=== PATIENT | female | born 1955 | race Caucasian/White ===

== ENCOUNTER 2018-10-23 04:38 | Inpatient (IN) | payer MEDICARE ==
[2018-10-23] MEDS ORDERED: PROVENTIL 2.5 MG/3 ML NEB IH ONE ×2 (04:45→04:54)
[2018-10-23] MEDS ORDERED: LEVOFLOXACIN 750MG/150ML D5W 750 MG/150 ML BAG IV STA (04:45)
[2018-10-23] MEDS ORDERED: Sodium Chloride 0.9% 1000 ML 1,000 ML IV STA ×2 (04:45→05:09)
--- NOTE | 2018-10-23 04:45 | ERPHSYRPT ---
- History of Present Illness Time Seen by Provider: 10/23/18 04:43 Physician History: PATIENT WITH A HISTORY OF COPD, NARCOLEPSY, RESTLESS LEG SYNDROME COMPLAINS OF PRODUCTIVE COUGH, CLEAR SPUTUM, DIFFICULTY BREATHING AND EXERTIONAL DYSPNEA. DENIES FEVER, CHILLS OR CHEST PAIN. HAS NO RELIEF AFTER AEROSOL TREATMENTS. Timing/Duration: yesterday Activities at Onset: activity Severity of Dyspnea-Max: severe Severity of Dyspnea-Current: severe Possible Cause: frequent episodes Modifying Factors: Improves With: coughing, exertion Associated Symptoms: cough, wheezing Allergies/Adverse Reactions: amoxicillin [From Augmentin] Allergy (Verified 10/23/18 04:50) clavulanic acid [From Augmentin] Allergy (Verified 10/23/18 04:50) codeine [Codeine] Allergy (Verified 08/31/12 20:02) levofloxacin [From Levaquin] Allergy (Verified 10/23/18 04:50) tramadol Allergy (Verified 10/23/18 04:50) Home Medications: Aspirin EC 81 mg [Ecotrin 81 mg] 81 mg PO DAILY 08/31/12 [History] Budesonide/Formoterol Fumarate [Symbicort 160-4.5 Mcg Inhaler] 10.2 gm IH DAILY 08/31/12 [History] Combivent Inhaler PRN 08/31/12 [History] Potassium Chloride 10 Meq Tab* [Klor Con 10 MEQ] 10 meq PO DAILY 08/31/12 [ History] Torsemide 40 mg PO DAILY 08/31/12 [History] Allopurinol 100 mg [Zyloprim 100 mg] 100 mg PO DAILY 10/23/18 [History] Azithromycin 250 mg [Zithromax 250 MG TABLET] 250 mg PO DAILY 10/23/18 [ History] Prednisone 10 mg [Deltasone 10 mg] 10 mg PO DAILY 10/23/18 [History] Sertraline HCl 50 mg PO DAILY 10/23/18 [History] Hx Tetanus, Diphtheria Vaccination/Date Given: No Hx Influenza Vaccination/Date Given: Yes (2011) Hx Pneumococcal Vaccination/Date Given: No - Review of Systems Constitutional: No Fever, No Chills Eyes: No Symptoms Ears, Nose, & Throat: No Symptoms Respiratory: Cough, Dyspnea, Dyspnea on Exertion (KING), Wheezing Cardiac: No Symptoms, No Chest Pain, No Edema, No Syncope Abdominal/Gastrointestinal: No Symptoms, No Abdominal Pain, No Nausea, No Vomiting, No Diarrhea Genitourinary Symptoms: No Symptoms, No Dysuria Musculoskeletal: No Symptoms, No Back Pain, No Neck Pain Skin: No Rash Neurological: No Dizziness, No Focal Weakness, No Sensory Changes Psychological: No Symptoms Endocrine: No Symptoms All Other Systems: Reviewed and Negative - Past Medical History Pertinent Past Medical History: Yes Neurological History: No Pertinent History ENT History: No Pertinent History Cardiac History: No Pertinent History Respiratory History: COPD, Sleep Apnea, Other Endocrine Medical History: No Pertinent History Musculoskeletal History: Arthritis GI Medical History: No Pertinent History Psycho-Social History: Anxiety Female Reproductive Disorders: No Pertinent History Other Medical History: NARCOLEPSY. RESTLESS LEG SYNDROME - Past Surgical History Past Surgical History: Yes Neuro Surgical History: No Pertinent History Cardiac: Cardiac Catheterization Respiratory: No Pertinent History Gastrointestinal: Appendectomy Genitourinary: No Pertinent History Female Surgical History: Hysterectomy - Social History Smoking Status: Current every day smoker How long have you smoked: 40 YEARS Exposure to second hand smoke: Yes Drug Use: none Patient Lives Alone: No - Nursing Vital Signs Nursing Vital Signs: Initial Vital Signs Temperature 99.3 F 10/23/18 04:39 Pulse Rate 120 H 10/23/18 04:39 Respiratory Rate 30 H 10/23/18 04:39 Blood Pressure 137/83 10/23/18 04:39 O2 Sat by Pulse Oximetry 91 L 10/23/18 04:39 Pain Scale Pain Intensity 0 - Physical Exam General Appearance: moderate distress Eye Exam: PERRL/EOMI Neck Exam: normal inspection Respiratory Exam: diminished breath sounds, prolonged expirations, wheezing Cardiovascular/Chest Exam: normal heart sounds, regular rate/rhythm, normal peripheral pulses Abdominal/Gastrointestinal Exam: soft, normal bowel sounds, other (OBESE) Extremity Exam: non-tender, normal range of motion, pedal edema (1+ PRETIBIAL EDEMA) Peripheral Pulses Exam: carotid (R): 2+, carotid (L): 2+, femoral (R): 2+, femoral (L): 2+, dorsalis-pedis (R): 2+, dorsalis-pedis (L): 2+ Neurologic Exam: alert, oriented x 3 Skin Exam: normal color, dry Lymphatic Exam: adenopathy SpO2 Interpretation: borderline oxygenation SpO2: 93 Oxygen Delivery: Nasal Cannula - Course EKG Interpreted by Me: Sinus Rhythm, Sinus Tach (RATE OF 119), NORMAL AXIS - Radiology Exams Chest X-ray Interpretation: Interpreted by me, No Infiltrates (FLAT DIAPHRAMS, ) Ordered Tests: Active Orders 24 hr Category Date Time Status Bedrest with BRP/BSC TOLERATED Activity 10/23/18 06:45 Active Manager Balance STAT Care 10/23/18 04:46 Active Code Status Order ROUTINE Care 10/23/18 06:45 Active EKG-ER Only STAT Care 10/23/18 04:45 Active IV Insertion ROUTINE Care 10/23/18 06:45 Active IV Insertion STAT Care 10/23/18 04:45 Active Implement Pneumonia Pathway ROUTINE Care 10/23/18 06:[address] in Observation ROUTINE Care 10/23/18 06:45 Active Pulse Oximetry (ED) STAT Care 10/23/18 04:45 Active Vital Signs .[id number],q3omx2,q1hx2,[id number] Care 10/23/18 06:45 Active Cardiac Diet Diet 10/23/18 Breakfast Active CHEST 1 VIEW (PORTABLE) Stat Exams 10/23/18 04:46 Taken BLOOD CULTURE Stat Lab 10/23/18 04:46 Ordered CBC W DIFF Stat Lab 10/23/18 05:10 Completed CMP Stat Lab 10/23/18 05:10 Completed D-DIMER QUANTITATION Stat Lab 10/23/18 05:10 Completed Lactic Acid Stat Lab 10/23/18 05:08 Completed MAGNESIUM Stat Lab 10/23/18 05:10 Completed NT PRO BNP Stat Lab 10/23/18 05:10 Completed PROTIME WITH INR Stat Lab 10/23/18 05:10 Completed TROPONIN Q3H Lab 10/23/18 05:10 Completed TROPONIN Q3H Lab 10/23/18 08:00 Ordered TROPONIN Q3H Lab 10/23/18 11:00 Ordered TROPONIN Q3H Lab 10/23/18 14:00 Ordered TROPONIN Q3H Lab 10/23/18 17:00 Ordered BiPap/CPAP STAT RT 10/23/18 04:45 Completed BiPap/CPAP STAT RT 10/23/18 06:47 Active Respiratory Nebulizer STAT RT 10/23/18 04:47 Completed Respiratory Therapy Assessment DAILY RT 10/23/18 05:23 Active Respiratory Therapy Consult ROUTINE RT 10/23/18 06:45 Active Transfer Order Routine Transfer 10/23/18 Ordered Medication Summary Generic Name Dose Route Start Last Admin Trade Name Freq PRN Reason Stop Dose Admin Acetaminophen 650 mg 10/23/18 06:54 Tylenol 325 Mg PO 11/22/18 06:53 Q4H PRN PRN PAIN AND/OR FEVER Albuterol/Ipratropium 3 ml 10/23/18 06:47 10/23/18 07:03 Duoneb 0.5-3 Mg/3 Ml Neb IH 11/22/18 06:46 3 ml Q4HPRN PRN Administration SHORTNESS OF BREATH/WHEEZING Azithromycin 500 mg in 250 mls @ 250 mls/hr 10/23/18 06:12 10/23/18 06:39 Zithromax 500 Mg/ 250 Ml Nacl Premix IV 10/23/18 07:11 250 mls/hr STAT STA 250 mls/hr Administration Ceftriaxone Sodium/Dextrose 1 g in 50 mls @ 100 mls/hr 10/23/18 10:00 Rocephin 1 Gm-D5w 50 Ml Bag IV 11/22/18 09:59 Q24H10 FRANCISCO Azithromycin 250 mls @ 125 mls/hr 10/23/18 10:00 Zithromax 500 Mg/ 250 Ml Nacl Premix IV 11/22/18 09:59 Q24H10 FR[place]IS[place] Levalbuterol HCl 1.25 mg 10/23/18 06:48 Xopenex 1.25 Mg/0.5 Ml Ud Nebule 11/22/18 06:47 Q2HPRN PRN DIFFICULTY BREATHING Methylprednisolone Sodium Succinate 60 mg 10/23/18 07:00 Solu-Medrol 40 Mg IV 11/22/18 06:59 Q8H [place] Potassium Chloride 20 meq 10/23/18 10:00 Klor Con 10 Meq PO 11/22/18 09:59 DAILY FRANCISCO Sertraline HCl 50 mg 10/23/18 10:00 Zoloft 50 Mg Tablet PO 11/22/18 09:59 DAILY FRANCIS[place] Torsemide 40 mg 10/23/18 10:00 Demadex 20 Mg PO 11/22/18 09:59 DAILY FRANCISCO Discontinued Medications Generic Name Dose Route Start Last Admin Trade Name Freq PRN Reason Stop Dose Admin Albuterol Sulfate 2.5 mg 10/23/18 04:45 10/23/18 05:06 Proventil 2.5 Mg/3 Ml Neb IH 10/23/18 04:46 2.5 mg STAT ONE Administration Albuterol Sulfate Confirm 10/23/18 04:54 Proventil 2.5 Mg/3 Ml Neb Administered 10/23/18 04:55 Dose 2.5 mg IH .STK-MED ONE Albuterol/Ipratropium Confirm 10/23/18 04:54 Duoneb 0.5-3 Mg/3 Ml Neb Administered 10/23/18 04:55 Dose 3 ml IH .STK-MED ONE Albuterol/Ipratropium 3 ml 10/23/18 04:54 10/23/18 04:58 Duoneb 0.5-3 Mg/3 Ml Neb IH 10/23/18 04:55 3 ml STAT ONE Administration Levofloxacin/Dextrose 750 mg in 150 mls @ 100 mls/hr 10/23/18 04:45 10/23/18 05:46 Levofloxacin 750mg/150ml D5w IV 10/23/18 06:14 Not Given STAT STA Sodium Chloride 1,000 mls @ 999 mls/hr 10/23/18 04:45 10/23/18 07:02 Sodium Chloride 0.9% 1000 Ml IV 10/23/18 05:45 Infused .Q1H1M STA Infusion Sodium Chloride Confirm 10/23/18 05:06 Sodium Chloride 0.9% 1000 Ml Administered 10/23/18 05:07 Dose 1,000 mls @ ud .ROUTE .STK-MED ONE Sodium Chloride 1,000 mls @ 999 mls/hr 10/23/18 05:09 Sodium Chloride 0.9% 1000 Ml IV 10/23/18 06:09 .Q1H1M STA Ceftriaxone Sodium/Dextrose 1 g in 50 mls @ 100 mls/hr 10/23/18 06:05 07:03 Rocephin 1 Gm-D5w 50 Ml Bag IV 10/23/18 06:34 Infused STAT STA Infusion Ceftriaxone Sodium/Dextrose Confirm 10/23/18 06:19 Rocephin 1 Gm-D5w 50 Ml Bag Administered 10/23/18 06:20 Dose 1 g in 50 mls @ ud IV .STK-MED ONE Azithromycin Confirm 10/23/18 06:39 Zithromax 500 Mg/ 250 Ml Nacl Premix Administered 10/23/18 06:40 Dose 500 mg in 250 mls @ ud IV .STK-MED ONE Lab/Rad Data: Laboratory Result Diagrams 10/23/18 05:10 10/23/18 05:10 Laboratory Results 10/23/18 10/23/18 10/23/18 Range/Units 05:10 05:10 05:10 WBC (4.0-10.5) K/mm3 RBC (4.1-5.4) M/mm3 Hgb (12.0-16.0) gm/dl Hct (35-47) % MCV (78-100) fl MCH (26-32) pg MCHC (32-36) g/dl RDW (11.5-14.0) % Plt Count (150-450) K/mm3 MPV (6-9.5) fl Gran % (36.0-66.0) % Eos # (Auto) (0-0.5) Absolute Lymphs (auto) (1.0-4.6) Absolute Monos (auto) (0.0-1.3) Lymphocytes % (24.0-44.0) % Monocytes % (0.0-12.0) % Eosinophils % (0.00-5.0) % Basophils % (0.0-0.4) % Absolute Granulocytes (1.4-6.9) Basophils # (0-0.4) PT 10.9 (9.95-12.35) SECONDS INR 0.94 (0.8-3.0) D-Dimer < 215 L (215-500) ng/mL Sodium (137-145) mmol/L Potassium (3.5-5.1) mmol/L Chloride (98-107) mmol/L Carbon Dioxide (22-30) mmol/L Anion Gap (5-15) MEQ/L BUN (7-17) mg/dL Creatinine (0.52-1.04) mg/dL Estimated GFR ML/MIN Glucose (74-106) mg/dL Lactic Acid (0.4-2.0) Calcium (8.4-10.2) mg/dL Magnesium (1.6-2.3) mg/dL Total Bilirubin (0.2-1.3) mg/dL AST (14-36) U/L ALT (0-35) U/L Alkaline Phosphatase (38-126) U/L Troponin I < 0.012 (0.000-0.034) ng/mL NT-Pro-B Natriuret Pep (0-900) pg/mL Serum Total Protein (6.3-8.2) g/dL Albumin (3.5-5.0) g/dL Influenza Type A Ag NEGATIVE (NEGATIVE) Influenza Type B Ag NEGATIVE (NEGATIVE) RSV (PCR) NEGATIVE (Negative) 10/23/18 10/23/18 10/23/18 Range/Units 05:10 05:10 05:08 WBC 15.0 H (4.0-10.5) K/mm3 RBC 3.99 L (4.1-5.4) M/mm3 Hgb 14.0 (12.0-16.0) gm/dl Hct 41.5 (35-47) % MCV 104.0 H (78-100) fl MCH 35.0 H (26-32) pg MCHC 33.7 (32-36) g/dl RDW 13.2 (11.5-14.0) % Plt Count 347 (150-450) K/mm3 MPV 8.8 (6-9.5) fl Gran % 71.0 H (36.0-66.0) % Eos # (Auto) 0.16 (0-0.5) Absolute Lymphs (auto) 2.99 (1.0-4.6) Absolute Monos (auto) 1.14 (0.0-1.3) Lymphocytes % 20.0 L (24.0-44.0) % Monocytes % 7.6 (0.0-12.0) % Eosinophils % 1.1 (0.00-5.0) % Basophils % 0.3 (0.0-0.4) % Absolute Granulocytes 10.62 H (1.4-6.9) Basophils # 0.04 (0-0.4) PT (9.95-12.35) SECONDS INR (0.8-3.0) D-Dimer (215-500) ng/mL Sodium 141 (137-145) mmol/L Potassium 3.7 (3.5-5.1) mmol/L Chloride 99 (98-107) mmol/L Carbon Dioxide 35 H (22-30) mmol/L Anion Gap 10.8 (5-15) MEQ/L BUN 16 (7-17) mg/dL Creatinine 0.89 (0.52-1.04) mg/dL Estimated GFR > 60.0 ML/MIN Glucose 125 H (74-106) mg/dL Lactic Acid 1.7 (0.4-2.0) Calcium 9.2 (8.4-10.2) mg/dL Magnesium 2.1 (1.6-2.3) mg/dL Total Bilirubin 0.30 (0.2-1.3) mg/dL AST 21 (14-36) U/L ALT 22 (0-35) U/L Alkaline Phosphatase 164 H (38-126) U/L Troponin I (0.000-0.034) ng/mL NT-Pro-B Natriuret Pep 60.5 (0-900) pg/mL Serum Total Protein 7.2 (6.3-8.2) g/dL Albumin 4.3 (3.5-5.0) g/dL Influenza Type A Ag (NEGATIVE) Influenza Type B Ag (NEGATIVE) RSV (PCR) (Negative) - Progress Progress: improved Progress Note: 10/23/18 05:07 PATIENT RECEIVED SOLUMEDROL 125MG INTRAVENOUS VIA EMS ALONG WITH DUO NEB AEROSOL TREATMENT. AFTER 2 SETS OF BLOOD CULTURES ADMINISTERED ROCEPHIN 1GM, ZITHROMAX 500MG IVPB, PLACED ONTO BIPAP WITH DUO NEB AEROSOL FOLLOWED BY ALBUTEROL AEROSOL THROUGH CIRCUIT. Blood Culture(s) Obtained: Yes Antibiotics given: Yes (ROCEPHIN 1GM, ZITHROMAX 500MG IVPB) Discussed with DrWinston: Ranjit Chowdary (DISCUSSED WITH DR Wally WHITE AT 0635 FOR OBSERVATION) - Departure Time of Disposition: 07:00 Departure Disposition: Observation Clinical Impression: ACUTE EXACERBATION COPD Condition: Stable Critical Care Time: No Referrals: URSZULA BENNETT MD [Primary Care Provider] -
[2018-10-23] MEDS ORDERED: DUONEB 0.5-3 MG/3 ml Neb IH ONE ×2 (04:54)
[2018-10-23] MEDS ORDERED: Sodium Chloride 0.9% 1000 ML 1,000 ML ONE (05:06)
[2018-10-23 05:22] LABS: BASOPHIL % 0.3 % (0.0-0.4); Basophil (Absolute #) 0.04 (0-0.4); Eosinophil % 1.1 % (0.00-5.0); Eosinophil (Absolute #) 0.16 (0-0.5); Granulocyte Absolute (ANC) 10.62 (1.4-6.9); Hematocrit 41.5 % (35-47); Lymphocyte (Absolute #) 2.99 (1.0-4.6); Mean Corpuscular Hgb Concent. 33.7 g/dl (32-36); Mean Platelet Volume 8.8 fl (6-9.5); Monocyte (Absolute #) 1.14 (0.0-1.3); Monocytes % 7.6 % (0.0-12.0); Platelet Count 347 K/mm3 (150-450); Red Blood Count 3.99 M/mm3 (4.1-5.4); Red Cell Distribution Width 13.2 % (11.5-14.0)
[2018-10-23 05:45] LABS: INR 0.94 (0.8-3.0)
[2018-10-23 05:53] LABS: ALBUMIN 4.3 g/dL (3.5-5.0); ALKALINE PHOSPHATASE 164 U/L (38-126); ANION GAP 10.8 MEQ/L (5-15); BLOOD UREA NITROGEN 16 mg/dL (7-17); CHLORIDE 99 mmol/L (98-107); Calcium 9.2 mg/dL (8.4-10.2); Carbon Dioxide 35 mmol/L (22-30); Creatinine 1 0.89 mg/dL (0.52-1.04); Glucose 125 mg/dL (74-106); NT PRO BNP 60.5 pg/mL (0-900); Potassium 3.7 mmol/L (3.5-5.1); SGOT/AST 21 U/L (14-36); SGPT/ALT 22 U/L (0-35); SODIUM 141 mmol/L (137-145); Total Protein 7.2 g/dL (6.3-8.2)
[2018-10-23 05:57] LABS: INFLUENZA A NEGATIVE (NEGATIVE); INFLUENZA B NEGATIVE (NEGATIVE); RESPIRATORY SYNCTIAL VIRUS NEGATIVE (Negative)
[2018-10-23] MEDS ORDERED: ROCEPHIN 1 Gm-D5w 50 ml Bag** 1 G/50 ML IVPB IV STA (06:05)
[2018-10-23 06:06] LABS: D-DIMER QUANTITATION < 215 ng/mL (215-500)
[2018-10-23] MEDS ORDERED: Zithromax 500 MG/ 250 ML NaCl Premix 500 MG/250 ML IVPB IV STA (06:12)
[2018-10-23] MEDS ORDERED: ROCEPHIN 1 Gm-D5w 50 ml Bag** 1 G/50 ML IVPB IV ONE (06:19)
[2018-10-23] MEDS ORDERED: Zithromax 500 MG/ 250 ML NaCl Premix 500 MG/250 ML IVPB IV ONE (06:39)
[2018-10-23] MEDS ORDERED: DUONEB 0.5-3 MG/3 ml Neb IH PRN (06:47)
[2018-10-23] MEDS ORDERED: Xopenex 1.25 MG/0.5 ML UD NEBULE IH PRN (06:48)
[2018-10-23] MEDS ORDERED: TYLENOL 325 MG PO PRN (06:54)
--- NOTE | 2018-10-23 09:39 | XRAY ---
Indication: Cough and dyspnea. Comparison: May 16, 2015. Portable chest remains hyperinflated. No focal infiltrate, consolidation, or large effusion. Heart is not enlarged. Bony thorax intact. Impression: Nonacute hyperinflated chest.
[2018-10-23] MEDS ORDERED: DEMADEX 20 MG PO SCH (10:00)
[2018-10-23] MEDS ORDERED: Klor Con 10 MEQ PO SCH (10:00)
[2018-10-23] MEDS: solu-MEDROL 125 MG IV SCH ×3 (10:08→21:01)
[2018-10-23] MEDS: Sodium Chloride 0.9% 1000 ML 1,000 ML IV SCH (10:08)
[2018-10-23] MEDS: ZOLOFT 50 MG TABLET PO SCH (10:09)
[2018-10-23] MEDS: DUONEB 0.5-3 MG/3 ml Neb IH SCH ×4 (11:41→23:43)
[2018-10-23] MEDS: ENOXAPARIN SODIUM SQ SCH (12:55)
[2018-10-23] MEDS: MAG-OX 400 PO SCH (12:56)
[2018-10-23] MEDS: ZYLOPRIM 100 MG PO SCH (12:57)
[2018-10-23 13:48] LABS: A-aADO2 125; ABG HEMOGLOBIN 14.3; ABG POTASSIUM 4.1 (3.5-5.1); ARTERIAL BLD GAS O2 SATURATION 97.4 % (95-100); ARTERIAL BLOOD GAS BASE EXCESS 4.2 (-2.0-2.0); ARTERIAL BLOOD GAS FIO2 40 %; ARTERIAL BLOOD GAS PCO2 57 mmHg (35-45); ARTERIAL BLOOD GAS PO2 89 mmHg (75-100); ARTERIAL BLOOD GAS VENT MODE BiPAP; ARTERIAL BLOOD GAS pH 7.35 (7.35-7.45); CARBOXYHEMOGLOBIN 1.2 % THgb (0.0-6.9); HCO3- 31.5 (22-28); HGB O2 SAT 95.8 g/dF (94-100); Methhemoglobin 0.4 % (1.4-1.5); paO2 pAO1 0.42
[2018-10-23 13:49] LABS: ABG SITE RIGHT BRACHIAL
[2018-10-23] MEDS: CLINDAMYCIN-D5W 600 MG/50 ML*** 600 MG/50 ML BAG IV SCH ×2 (14:07→21:02)
[2018-10-23] MEDS: PROTONIX 40 MG IV IV SCH (14:08)
[2018-10-24] MEDS ORDERED: PHARMACY DOSING REQUIRED: VANCOMYCIN IV ONE (03:23)
[2018-10-24] MEDS: DUONEB 0.5-3 MG/3 ml Neb IH SCH ×6 (03:44→23:01)
[2018-10-24] MEDS ORDERED: Vancomycin 1GM/ Ns 250ML*** 2 GM/500 ML IVPB IV ONE (04:00)
[2018-10-24] MEDS: CLINDAMYCIN-D5W 600 MG/50 ML*** 600 MG/50 ML BAG IV SCH ×3 (05:35→21:44)
[2018-10-24] MEDS: solu-MEDROL 125 MG IV SCH (05:55)
[2018-10-24 06:07] LABS: Hematocrit 37.4 % (35-47); Hemoglobin 12.6 gm/dl (12.0-16.0); Mean Cell Volume 103.3 fl (78-100); Mean Corpuscular Hemoglobin 34.8 pg (26-32); Mean Corpuscular Hgb Concent. 33.7 g/dl (32-36); Platelet Count 347 K/mm3 (150-450); Red Blood Count 3.62 M/mm3 (4.1-5.4); Red Cell Distribution Width 12.8 % (11.5-14.0); White Blood Count 17.9 K/mm3 (4.0-10.5)
[2018-10-24 06:21] LABS: ANION GAP 10.4 MEQ/L (5-15); BLOOD UREA NITROGEN 20 mg/dL (7-17); CHLORIDE 100 mmol/L (98-107); Calcium 8.7 mg/dL (8.4-10.2); Carbon Dioxide 34 mmol/L (22-30); Creatinine 1 0.91 mg/dL (0.52-1.04); Glucose 129 mg/dL (74-106); Potassium 4.1 mmol/L (3.5-5.1); SODIUM 141 mmol/L (137-145)
[2018-10-24] MEDS: Advair Hfa 230/21 Mcg COMMON CANISTER IH SCH ×3 (06:45→18:48)
[2018-10-24] MEDS: PROTONIX 40 MG IV IV SCH (07:57)
[2018-10-24] MEDS: ZOLOFT 50 MG TABLET PO SCH (07:57)
[2018-10-24] MEDS: ENOXAPARIN SODIUM SQ SCH (07:57)
[2018-10-24] MEDS: xanAX 0.25 MG PO PRN ×4 (07:57→21:44)
[2018-10-24] MEDS: MAG-OX 400 PO SCH (07:57)
[2018-10-24] MEDS: DEMADEX 20 MG PO SCH (07:58)
[2018-10-24] MEDS: ZYLOPRIM 100 MG PO SCH (08:01)
[2018-10-24] MEDS: Klor Con 10 MEQ PO SCH (09:11)
[2018-10-24] MEDS ORDERED: Zithromax 500 MG/ 250 ML NaCl Premix 500 MG/250 ML IVPB IV SCH (10:00)
[2018-10-24] MEDS ORDERED: ROCEPHIN 1 Gm-D5w 50 ml Bag** 1 G/50 ML IVPB IV SCH (10:00)
[2018-10-24] MEDS: Sodium Chloride 0.9% 1000 ML 1,000 ML IV SCH (10:59)
[2018-10-24] MEDS: solu-MEDROL 40 MG IV SCH ×2 (13:29→21:44)
[2018-10-24] MEDS: Spiriva 18 Mcg/Cap Inhaler IH SCH (18:50)
[2018-10-24] MEDS: VANCOCIN 1 GM VIAL*** 0.75 GM in Sodium Chloride 0.9% 150 ML 150 ML IV SCH (21:44)
[2018-10-25] MEDS: DUONEB 0.5-3 MG/3 ml Neb IH SCH ×6 (02:58→22:48)
[2018-10-25] MEDS: CLINDAMYCIN-D5W 600 MG/50 ML*** 600 MG/50 ML BAG IV SCH ×3 (05:07→21:24)
[2018-10-25] MEDS: solu-MEDROL 40 MG IV SCH ×3 (05:07→21:28)
[2018-10-25 05:56] LABS: Basophil (Absolute #) 0.01 (0-0.4); Eosinophil (Absolute #) 0.01 (0-0.5); Granulocyte Absolute (ANC) 20.08 (1.4-6.9); Granulocytes % 90.3 % (36.0-66.0); Hematocrit 39.4 % (35-47); Hemoglobin 12.7 gm/dl (12.0-16.0); Lymphocytes % 5.8 % (24.0-44.0); Mean Cell Volume 105.3 fl (78-100); Mean Corpuscular Hemoglobin 33.9 pg (26-32); Mean Corpuscular Hgb Concent. 32.2 g/dl (32-36); Mean Platelet Volume 8.8 fl (6-9.5); Monocyte (Absolute #) 0.87 (0.0-1.3); Monocytes % 3.9 % (0.0-12.0); Platelet Count 332 K/mm3 (150-450); Red Blood Count 3.74 M/mm3 (4.1-5.4); White Blood Count 22.3 K/mm3 (4.0-10.5)
[2018-10-25 06:16] LABS: ALBUMIN 3.7 g/dL (3.5-5.0); ALKALINE PHOSPHATASE 96 U/L (38-126); ANION GAP 9.3 MEQ/L (5-15); BLOOD UREA NITROGEN 31 mg/dL (7-17); CHLORIDE 100 mmol/L (98-107); Calcium 9.2 mg/dL (8.4-10.2); Carbon Dioxide 34 mmol/L (22-30); Creatinine 1 0.92 mg/dL (0.52-1.04); Glucose 128 mg/dL (74-106); Potassium 4.2 mmol/L (3.5-5.1); SGOT/AST 22 U/L (14-36); SGPT/ALT 21 U/L (0-35); SODIUM 139 mmol/L (137-145); Total Protein 6.2 g/dL (6.3-8.2)
[2018-10-25] MEDS: Advair Hfa 230/21 Mcg COMMON CANISTER IH SCH ×3 (06:49→19:08)
[2018-10-25] MEDS: xanAX 0.25 MG PO PRN (07:51)
[2018-10-25 07:59] LABS: Slide Review 1 YES
[2018-10-25] MEDS: Klor Con 10 MEQ PO SCH (10:00)
[2018-10-25] MEDS: PROTONIX 40 MG IV IV SCH (10:00)
[2018-10-25] MEDS: MAG-OX 400 PO SCH (10:00)
[2018-10-25] MEDS: ENOXAPARIN SODIUM SQ SCH (10:00)
[2018-10-25] MEDS: ZOLOFT 50 MG TABLET PO SCH (10:00)
[2018-10-25] MEDS: VANCOCIN 1 GM VIAL*** 0.75 GM in Sodium Chloride 0.9% 150 ML 150 ML IV SCH ×2 (10:01→22:14)
[2018-10-25] MEDS: DEMADEX 20 MG PO SCH (10:01)
[2018-10-25] MEDS: ZYLOPRIM 100 MG PO SCH (10:01)
--- NOTE | 2018-10-25 11:23 | HP ---
HISTORY OF PRESENT ILLNESS: Maria Luz Gregory is a 63 year old woman with past medical history of hypertension, congestive heart failure, chronic obstructive pulmonary disease, chronic respiratory failure, sleep apnea, narcolepsy, anxiety and restless leg syndrome. She was admitted through the emergency room this morning with increasing shortness of breath, productive cough for the past two to three days. The patient did not have any relief after using her nebulizations at home. She had also noticed some wheezing at home. Upon initial evaluation in the emergency room she was noted to have blood pressure 107/83, heart rate 120, respiratory rate 30 and temperature 99.3F. Oxygen saturations of 91%. After initial evaluation she was treated with Albuterol nebulization, Tylenol 650 mg, Zithromax 500 mg, Rocephin 1 gm, Xopenex nebulization, Solu-Medrol 60 mg, potassium 20 mEq , Zoloft 50 mg, Torsemide 40 mg and was placed on BiPAP. Subsequently she was admitted to ICU for further monitoring and management. At the time of this evaluation she remains on BiPAP. States her shortness of breath is somewhat better. Complains of wheezing. Complains of chest tightness. Complains of productive cough. Complains of fatigue. The patient said she had similar symptoms four days back. PAST MEDICAL HISTORY: As noted above. PAST SURGICAL HISTORY: Cardiac catheterization. Appendectomy. Hysterectomy. ALLERGIES: AMOXICILLIN, CLAVULANIC ACID, CODEINE, LEVOFLOXACIN, TRAMADOL. MEDICATIONS: Home medications were reviewed. FAMILY HISTORY: Noncontributory. SOCIAL HISTORY: The patient is an active smoker. She lives at home. REVIEW OF SYSTEMS: Denies headache or dizziness Complains of fatigue. Denies fever. Complains of chest congestion, chest tightness. Denies chest pain as such. Complains of shortness of breath. Complains of productive cough. Denies palpitations. Denies abdominal pain, nausea or vomiting. Denies constipation or diarrhea. Denies urinary complaints. PHYSICAL EXAMINATION: A middle-aged obese woman lying in bed, remains on BiPAP. VITAL SIGNS: Blood pressure 126/67, heart rate 70, respiratory rate 24, temperature 97.6F. Oxygen saturation 99% on current settings with BiPAP. HEENT: No pallor or icterus is noted. NECK: No JVD is present. CVS: S1, S2 present. RESPIRATORY: Breath sounds are bilaterally diminished. Scattered wheezing present. ABDOMEN: Obese, soft, nontender. NEURO: She is alert, oriented x3. EXTREMITIES: No edema on bilateral lower extremities. LABORATORY DATA AND TESTS: Labs from today show CBC with white blood cell of 15 otherwise unremarkable. D-dimer is less than 215. Lactic acid 1.7. CMP notable for glucose 125, troponin is less than 0.012 x3. NT BNP 60.5. Flu A/B and respiratory syncytial virus are negative. Blood cultures are pending. Chest x-ray from today showed nonacute hyperinflated chest. EKG showed sinus tachycardia at 119 beats/minute, normal axis per emergency room records. ASSESSMENT: A 63 year old woman with impression: 1) Chronic obstructive pulmonary disease with exacerbation. 2) Acute on chronic respiratory failure. 3) Acute bronchopneumonia. 4) History of hypertension/congestive heart failure. 5) History of narcolepsy. 6) Anxiety. 7) Nicotine addiction. 8) Obesity. PLAN: The patient is admitted for further monitoring and management. Continue supplemental oxygen nebulizations, BiPAP as tolerated. Continue broad spectrum IV antibiotics. However in view of the patient's allergies, we changed to IV Clindamycin. Will get baseline ABG. Likely need for transfer to allow pulmonary evaluation was discussed with patient. Continue other current home medications. Continue IV steroids. The patient's clinical condition, available work up results and plan of management was discussed with her. She seems to be in understanding and agreement. The plan was discussed with charge nurse, Betina.
--- NOTE | 2018-10-25 11:37 | PROG NOTE ---
DATE: 10/24/2018 Chart is reviewed and events noted. The patient had an episode of severe anxiety earlier this morning when attempt was made to change her to nasal cannula. She treated with her home medication of Xanax which helped her well per nursing. At the time of this evaluation the patient is on nasal cannula, states the shortness of breath is much better. Still having persistent cough. However is unable to bring up any phlegm. Wanting regular diet. Denies any other complaints. Appears comfortable. PHYSICAL EXAMINATION: VITAL SIGNS: Blood pressure 138/78, heart rate 92, respiratory rate 22, temperature 97.8F. Oxygen saturation 96% on 2 liters. HEENT: Normocephalic. No pallor or icterus is noted. NECK: No JVD is present. CVS: S1, S2 present. RESPIRATORY: Breath sounds are bilaterally diminished. ABDOMEN: Obese, soft, nontender. NEURO: She is alert and oriented x3. EXTREMITIES: No edema on bilateral lower extremities. LABORATORY DATA AND TESTS: Labs from today show CBC with white blood cell 17.9, hemoglobin 12.6, hematocrit 37.4, PLT 347,000. BMP showed bicarbonate 34, BUN 20, creatinine 0.91, glucose 129, magnesium 2.2. Blood cultures show gram positive cocci on preliminary exam report called to me by nursing. Medications were reviewed. ASSESSMENT: A 63 year old woman with impression: 1) Chronic obstructive pulmonary disease with exacerbation. 2) Acute bronchopneumonia. 3) Questionable gram positive bacteremia. 4) History of hypertension/congestive heart failure. 5) Chronic respiratory failure. 6) Anxiety. 7) Obesity. PLAN: Continue supplemental oxygen/BiPAP. Taper steroids as tolerated. Continue broad spectrum IV antibiotics. In view of preliminary positive blood cultures Vancomycin was added, continue to follow cultures. Change to regular diet. Likely transfer out of ICU later today or tomorrow. The plan was discussed with patient. She seems to be in understanding and agreement. Discussed with patient's nurse, Evon.
--- NOTE | 2018-10-25 12:17 | PCM.HP ---
History of Present Illness - Chief Complaint Chief Complaint: shortness of breath and cough for 3-4 days History of Present Illness: is a 63 year old female came to ER with c/o shortness of breath for 3-4 days. patient has failed outpatient treatment - Review of Systems Constitutional: No Fever, No Chills Eyes: No Symptoms Ears, Nose, & Throat: No Symptoms Respiratory: Cough, Orthopnea, No Short Of Breath Cardiac: No Chest Pain, No Edema, No Syncope Abdominal/Gastrointestinal: No Abdominal Pain, No Nausea, No Vomiting, No Diarrhea Genitourinary Symptoms: No Dysuria Musculoskeletal: No Back Pain, No Neck Pain Skin: No Rash Neurological: No Dizziness, No Focal Weakness, No Sensory Changes Psychological: No Symptoms Endocrine: No Symptoms Hematologic/Lymphatic: No Symptoms Immunological/Allergic: No Symptoms Medications & Allergies Home Medications: Home Medication List Aspirin EC 81 mg [Ecotrin 81 mg] 81 mg PO 3XW 08/31/12 [History Confirmed 10/23/18] Budesonide/Formoterol Fumarate [Symbicort 160-4.5 Mcg Inhaler] 10.2 gm IH DAILY 08/31/12 [History Confirmed 10/23/18] Combivent Inhaler 2 puff PO Q4HPRN PRN 08/31/12 [History Confirmed 10/23/18] Potassium Chloride 10 Meq Tab* [Klor Con 10 MEQ] 10 meq PO DAILY 08/31/12 [ History Confirmed 10/23/18] Torsemide 20 mg PO DAILY 08/31/12 [History Confirmed 10/23/18] Allopurinol 100 mg [Zyloprim 100 mg] 100 mg PO DAILY 10/23/18 [History Confirmed 10/23/18] Magnesium Oxide [Magnesium] 400 mg PO DAILY 10/23/18 [History Confirmed 10/23/18 ] Prednisone 10 mg [Deltasone 10 mg] 10 mg PO DAILY 10/23/18 [History Confirmed 10/23/18] Sertraline HCl 50 mg PO DAILY 10/23/18 [History Confirmed 10/23/18] Allergies/Adverse Reactions: Allergies Allergy/AdvReac Type Severity Reaction Status Date / Time clavulanic acid Allergy Verified 10/23/18 04:50 [From Augmentin] codeine [Codeine] Allergy Verified 08/31/12 20:02 levofloxacin [From Levaquin] Allergy Verified 10/23/18 04:50 tramadol Allergy Verified 10/23/18 04:50 - Past Medical History Past Medical History: Yes Neurological History: No Pertinent History ENT History: No Pertinent History Cardiac History: No Pertinent History Respiratory History: COPD, Sleep Apnea, Other Endocrine Medical History: No Pertinent History Musculoskelatal History: Arthritis GI Medical History: No Pertinent History Pyscho-Social History: Anxiety Reproductive Disorders: No Pertinent History Comment: NARCOLEPSY. RESTLESS LEG SYNDROME - Female History Are you now?: No - Past Surgical History Past Surgical History: Yes Neuro Surgical History: No Pertinent History Cardiac History: Cardiac Catheterization Respiratory Surgery: No Pertinent History GI Surgical History: Appendectomy Genitourinary Surgical Hx: No Pertinent History Musculskeletal Surgical Hx: Other Female Surgical History: Hysterectomy Other Surgical History: biopsy of lump from neck - Social History Smoking Status: Former smoker How long have you smoked: 45 years Exposure to second hand smoke: No Alcohol: Rarely Drug Use: none - Physical Exam Vital Signs: Vital Signs - 24 hr Temp Pulse Resp BP Pulse Ox 10/25/18 12:00 97.6 F 92 H 18 126/68 94 L 10/25/18 10:46 85 18 94 L 10/25/18 08:49 93 H 10/25/18 07:54 97.6 F 79 18 146/78 93 L 10/25/18 06:55 79 18 93 L 10/25/18 04:00 97.2 F 66 17 127/64 15 L 10/25/18 02:58 76 22 98 10/25/18 00:01 70 10/25/18 00:00 97.5 F 64 18 129/78 99 10/24/18 23:01 66 18 96 10/24/18 19:51 83 22 10/24/18 19:44 97.8 F 82 24 124/75 92 L 10/24/18 18:45 92 H 22 90 L 10/24/18 16:00 98 F 91 H 24 110/53 90 L 10/24/18 14:32 81 18 93 L Oxygen-Last 24 hours O2 Percentage 4 Liters = 36% O2 Percentage 40% O2 Percentage 40% O2 Percentage 4 Liters = 36% O2 Percentage 4 Liters = 36% General Appearance: no apparent distress, alert Neurologic Exam: alert, oriented x 3, cooperative, normal mood/affect, nml cerebellar function, nml station & gait, sensation nml, No motor deficits Eye Exam: PERRL/EOMI, eyes nml inspection Ears, Nose, Throat Exam: normal ENT inspection, TMs normal, pharynx normal, moist mucous membranes Neck Exam: normal inspection, non-tender, supple, full range of motion Respiratory Exam: respiratory distress, diminished breath sounds, crackles/rales , rhonchi, wheezing Cardiovascular Exam: regular rate/rhythm, normal heart sounds, normal peripheral pulses Gastrointestinal/Abdomen Exam: soft, normal bowel sounds, No tenderness, No mass Back Exam: normal inspection, normal range of motion, No CVA tenderness, No vertebral tenderness Extremity Exam: normal inspection, normal range of motion, pelvis stable Skin Exam: normal color, warm, dry, No rash Lymphatic Exam: No adenopathy Results - Labs Lab/Micro Results: Lab Results-Last 24 Hours 10/25/18 10/25/18 10/25/18 Range/Units 05:00 05:40 05:40 WBC 22.3 H (4.0-10.5) K/mm3 RBC 3.74 L (4.1-5.4) M/mm3 Hgb 12.7 (12.0-16.0) gm/dl Hct 39.4 (35-47) % MCV 105.3 H (78-100) fl MCH 33.9 H (26-32) pg MCHC 32.2 (32-36) g/dl RDW 13.0 (11.5-14.0) % Plt Count 332 (150-450) K/mm3 MPV 8.8 (6-9.5) fl Gran % 90.3 H (36.0-66.0) % Eos # (Auto) 0.01 (0-0.5) Absolute Lymphs (auto) 1.30 (1.0-4.6) Absolute Monos (auto) 0.87 (0.0-1.3) Lymphocytes % 5.8 L (24.0-44.0) % Monocytes % 3.9 (0.0-12.0) % Eosinophils % 0.0 (0.00-5.0) % Basophils % 0.0 (0.0-0.4) % Absolute Granulocytes 20.08 H (1.4-6.9) Basophils # 0.01 (0-0.4) Sodium 139 (137-145) mmol/L Potassium 4.2 (3.5-5.1) mmol/L Chloride 100 (98-107) mmol/L Carbon Dioxide 34 H (22-30) mmol/L Anion Gap 9.3 (5-15) MEQ/L BUN 31 H (7-17) mg/dL Creatinine 0.92 (0.52-1.04) mg/dL Estimated GFR > 60.0 ML/MIN Glucose 128 H (74-106) mg/dL Calcium 9.2 (8.4-10.2) mg/dL Magnesium 2.4 H (1.6-2.3) mg/dL Total Bilirubin 0.20 (0.2-1.3) mg/dL AST 22 (14-36) U/L ALT 21 (0-35) U/L Alkaline Phosphatase 96 (38-126) U/L Serum Total Protein 6.2 L (6.3-8.2) g/dL Albumin 3.7 (3.5-5.0) g/dL Slides for Path Review YES Microbiology 10/23/18 05:10 Blood Culture - Preliminary Blood NO GROWTH TO DATE 10/23/18 04:46 Blood Culture Gram Stain - Final Blood Blood Culture - Preliminary Coagulase Negative Staph. Possible Contaminant. Clinical judgement required. NO FURTHER WORKUP WILL BE PERFORMED UNLESS PHYSICIAN REQUESTED WITHIN THE NEXT 72 HOURS Assessment/Plan (1) COPD exacerbation Current Visit: Yes Status: Acute Onset Date: ~10/23/18 Assessment & Plan: Last Vital Signs Temp 97.6 F 10/25/18 12:00 Pulse 92 H 10/25/18 12:00 Resp 18 10/25/18 12:00 BP 126/68 10/25/18 12:00 Pulse Ox 94 L 10/25/18 12:00 Allergies clavulanic acid [From Augmentin] Allergy (Verified 10/23/18 04:50) codeine [Codeine] Allergy (Verified 08/31/12 20:02) levofloxacin [From Levaquin] Allergy (Verified 10/23/18 04:50) tramadol Allergy (Verified 10/23/18 04:50) Active Medications Acetaminophen (Tylenol 325 Mg) 650 mg PO Q4H PRN PRN PRN Reason: PAIN AND/OR FEVER Stop: 11/22/18 06:53 Albuterol/Ipratropium (Duoneb 0.5-3 Mg/3 Ml Neb) 3 ml IH Q4HPRN PRN PRN Reason: SHORTNESS OF BREATH/WHEEZING Stop: 11/22/18 06:46 Last Admin: 10/23/18 07:03 Dose: 3 ml Albuterol/Ipratropium (Duoneb 0.5-3 Mg/3 Ml Neb) 3 ml IH Q4HRT [facility] Stop: 11/22/18 10:59 Last Admin: 10/25/18 10:45 Dose: 3 ml Allopurinol (Zyloprim 100 Mg) 100 mg PO DAILY [facility] Stop: 11/22/18 12:59 Last Admin: 10/25/18 10:01 Dose: 100 mg Alprazolam (Xanax 0.25 Mg) 0.25 mg PO Q4H PRN PRN PRN Reason: ANXIETY Stop: 11/23/18 07:22 Last Admin: 10/25/18 07:51 Dose: 0.25 mg Aspirin (Ecotrin 81 Mg) 81 mg PO MoWeFr [facility] Stop: 12/01/18 09:59 Device (Trough Drug Levels) 1 IJ 1XONLY ONE Stop: 10/26/18 09:31 Enoxaparin Sodium (Enoxaparin Sodium) 40 mg SQ DAILY [facility] Stop: 11/22/18 12:59 Last Admin: 10/25/18 10:00 Dose: 40 mg Sodium Chloride (Sodium Chloride 0.9% 1000 Ml) 1,000 mls @ 50 mls/hr IV .Q20H [facility] Stop: 11/22/18 08:59 Last Admin: 10/24/18 10:59 Dose: 50 mls/hr Clindamycin HCl/Dextrose (Clindamycin-D5w 600 Mg/50 Ml) 600 mg in 50 mls @ 100 mls/hr IV Q8HT [facility] Stop: 11/22/18 13:59 Last Admin: 10/25/18 05:07 Dose: 100 mls/hr Vancomycin HCl 0.75 gm/ Sodium (Chloride) 150 mls @ 100 mls/hr IV Q12HT [facility] [place] Stop: 01/01/19 21:59 Last Admin: 10/25/18 10:01 Dose: 100 mls/hr Levalbuterol HCl (Xopenex 1.25 Mg/0.5 Ml Ud Nebule) 1.25 mg IH Q2HPRN PRN PRN Reason: DIFFICULTY BREATHING Stop: 11/22/18 06:47 Magnesium Oxide (Mag-Ox 400) 400 mg PO DAILY [facility] Stop: 11/22/18 12:59 Last Admin: 10/25/18 10:00 Dose: 400 mg Methylprednisolone Sodium Succinate (Solu-Medrol 40 Mg) 40 mg IV Q8HT [facility] Stop: 11/23/18 13:59 Last Admin: 10/25/18 05:07 Dose: 40 mg Pantoprazole Sodium (Protonix 40 Mg Iv) 40 mg IV Q24H10 [facility] Stop: 11/22/18 13:14 Last Admin: 10/25/18 10:00 Dose: 40 mg Potassium Chloride (Klor Con 10 Meq) 10 meq PO DAILY [facility] Stop: 11/23/18 09:59 Last Admin: 10/25/18 10:00 Dose: 10 meq Fluticasone/Salmeterol (Advair Hfa 230/21 Mcg Common Canister*) 2 puff IH BIDRT [facility] Stop: 11/22/18 09:59 Last Admin: 10/25/18 06:49 Dose: 2 puff Sertraline HCl (Zoloft 50 Mg Tablet) 50 mg PO DAILY [facility] Stop: 11/22/18 09:59 Last Admin: 10/25/18 10:00 Dose: 50 mg Tiotropium [place] (Spiriva 18 Mcg/Cap Inhaler) 1 ea IH QPM [facility] Stop: 11/22/18 21:59 Last Admin: 10/24/18 18:50 Dose: 1 ea Torsemide (Demadex 20 Mg) 20 mg PO DAILY [facility] Stop: 11/23/18 09:59 Last Admin: 10/25/18 10:01 Dose: 20 mg Intake & Output 10/25/18 10/26/18 11:59 11:59 Intake Total 1692 Output Total 1000 400 Balance 692 -400 Lab Tests 10/25/18 10/25/18 10/25/18 05:00 05:40 05:40 WBC 22.3 H RBC 3.74 L Hgb 12.7 Hct 39.4 MCV 105.3 H MCH 33.9 H MCHC 32.2 RDW 13.0 Plt Count 332 MPV 8.8 Gran % 90.3 H Eos # (Auto) 0.01 Absolute Lymphs (auto) 1.30 Absolute Monos (auto) 0.87 Lymphocytes % 5.8 L Monocytes % 3.9 Eosinophils % 0.0 Basophils % 0.0 Absolute Granulocytes 20.08 H Basophils # 0.01 Sodium 139 Potassium 4.2 Chloride 100 Carbon Dioxide 34 H Anion Gap 9.3 BUN 31 H Creatinine 0.92 Estimated GFR > 60.0 Glucose 128 H Calcium 9.2 Magnesium 2.4 H Total Bilirubin 0.20 AST 22 ALT 21 Alkaline Phosphatase 96 Serum Total Protein 6.2 L Albumin 3.7 Slides for Path Review YES Microbiology 10/23/18 05:10 Blood Blood Culture - Preliminary NO GROWTH TO DATE 10/23/18 04:46 Blood Blood Culture Gram Stain - Final 10/23/18 04:46 Blood Blood Culture - Preliminary Coagulase Negative Staph. Possible Contaminant. Clinical judgement required. NO FURTHER WORKUP WILL BE PERFORMED UNLESS PHYSICIAN REQUESTED WITHIN THE NEXT 72 HOURS Code(s): J44.1 - CHRONIC OBSTRUCTIVE PULMONARY DISEASE W (ACUTE) EXACERBATION (2) Dyspnea Current Visit: Yes Status: Acute Onset Date: ~10/23/18 Qualifiers: Dyspnea type: dyspnea on exertion Qualified Code(s): R06.09 - Other forms of dyspnea Code(s): R06.00 - DYSPNEA, UNSPECIFIED
[2018-10-25] MEDS: Sodium Chloride 0.9% 1000 ML 1,000 ML IV SCH (12:58)
[2018-10-25] MEDS: Spiriva 18 Mcg/Cap Inhaler IH SCH ×2 (19:08→19:17)
[2018-10-26] MEDS: DUONEB 0.5-3 MG/3 ml Neb IH SCH ×6 (02:48→23:14)
[2018-10-26] MEDS: CLINDAMYCIN-D5W 600 MG/50 ML*** 600 MG/50 ML BAG IV SCH ×3 (05:45→21:22)
[2018-10-26] MEDS: solu-MEDROL 40 MG IV SCH ×2 (05:46→21:22)
[2018-10-26] MEDS: Advair Hfa 230/21 Mcg COMMON CANISTER IH SCH ×2 (07:07→19:15)
[2018-10-26 09:28] LABS: Hematocrit 39.8 % (35-47); Hemoglobin 13.5 gm/dl (12.0-16.0); Mean Cell Volume 102.6 fl (78-100); Mean Corpuscular Hgb Concent. 33.9 g/dl (32-36); Mean Platelet Volume 8.7 fl (6-9.5); Platelet Count 340 K/mm3 (150-450); Red Blood Count 3.88 M/mm3 (4.1-5.4); Red Cell Distribution Width 12.8 % (11.5-14.0); White Blood Count 18.5 K/mm3 (4.0-10.5)
[2018-10-26] MEDS ORDERED: TROUGH DRUG LEVELS IJ ONE (09:30)
[2018-10-26 09:39] LABS: ANION GAP 13.6 MEQ/L (5-15); BLOOD UREA NITROGEN 28 mg/dL (7-17); CHLORIDE 98 mmol/L (98-107); Calcium 9.4 mg/dL (8.4-10.2); Carbon Dioxide 35 mmol/L (22-30); Creatinine 1 0.97 mg/dL (0.52-1.04); Glucose 217 mg/dL (74-106); Potassium 4.7 mmol/L (3.5-5.1); SODIUM 142 mmol/L (137-145)
[2018-10-26 09:42] LABS: Mean Corpuscular Hemoglobin 34.7 pg (26-32)
[2018-10-26] MEDS: xanAX 0.25 MG PO PRN (09:53)
[2018-10-26] MEDS: ZOLOFT 50 MG TABLET PO SCH (11:04)
[2018-10-26] MEDS: VANCOCIN 1 GM VIAL*** 0.75 GM in Sodium Chloride 0.9% 150 ML 150 ML IV SCH (11:04)
[2018-10-26] MEDS: MAG-OX 400 PO SCH (11:04)
[2018-10-26] MEDS: Klor Con 10 MEQ PO SCH (11:04)
[2018-10-26] MEDS: PROTONIX 40 MG IV IV SCH (11:05)
[2018-10-26] MEDS: DEMADEX 20 MG PO SCH (11:05)
[2018-10-26] MEDS: ZYLOPRIM 100 MG PO SCH (11:06)
[2018-10-26] MEDS: ENOXAPARIN SODIUM SQ SCH (11:06)
--- NOTE | 2018-10-26 12:20 | PCM.NOTE ---
Date and Time: 10/26/18 1219 Subjective Assessment: doing ok - Review of Systems Constitutional: No Fever, No Chills Eyes: No Symptoms Ears, Nose, & Throat: No Symptoms Respiratory: No Cough, No Short Of Breath Cardiac: No Chest Pain, No Edema, No Syncope Abdominal/Gastrointestinal: No Abdominal Pain, No Nausea, No Vomiting, No Diarrhea Genitourinary Symptoms: No Dysuria Musculoskeletal: No Back Pain, No Neck Pain Skin: No Rash Neurological: No Dizziness, No Focal Weakness, No Sensory Changes Psychological: No Symptoms Endocrine: No Symptoms Hematologic/Lymphatic: No Symptoms Immunological/Allergic: No Symptoms Objective Exam General Appearance: no apparent distress, alert Neurologic Exam: alert, oriented x 3, cooperative, normal mood/affect, nml cerebellar function, sensation nml, No motor deficits Skin Exam: normal color, warm, dry Eye Exam: PERRL, EOMI, eyes nml inspection Ears, Nose, Throat Exam: normal ENT inspection, pharynx normal, moist mucous membranes Neck Exam: normal inspection, non-tender, supple, full range of motion Respiratory Exam: normal breath sounds, lungs clear, No respiratory distress Cardiovascular Exam: regular rate/rhythm, normal heart sounds Gastrointestinal/Abdomen Exam: soft, No tenderness, No mass Extremity Exam: normal inspection, normal range of motion Back Exam: normal inspection, normal range of motion, No CVA tenderness, No vertebral tenderness Pelvic Exam: deferred Rectal Exam: deferred OBJECTIVE DATA Vital Signs: Vital Signs - 24 hr Temp Pulse Resp BP Pulse Ox 10/26/18 12:00 22 10/26/18 10:50 80 20 94 L 10/26/18 08:00 18 10/26/18 07:37 98.1 F 69 18 137/68 91 L 10/26/18 07:00 71 20 93 L 10/26/18 04:46 97 F 63 19 153/87 95 10/26/18 02:04 139/65 10/26/18 00:00 70 19 181/76 98 10/25/18 22:50 70 20 94 L 10/25/18 19:36 79 20 90 L 10/25/18 19:33 98 F 84 20 170/99 93 L 10/25/18 16:00 97.6 F 81 24 144/69 91 L 10/25/18 14:46 83 18 93 L Oxygen-Last 24 hours O2 Percentage 4 Liters = 36% O2 Percentage 4 Liters = 36% O2 Percentage 4 Liters = 36% Pain Assessment - Last Documented Pain Intensity 0 Pain Scale Used 0-10 Pain Scale Intake and Output: Intake & Output 10/24/18 10/25/18 10/26/18 10/27/18 11:59 11:59 11:59 11:59 Intake Total 1190 1692 1391 Output Total 3350 1000 2800 Balance -2160 692 -1409 Weight 94.9 kg Lab Results: Lab Results-Last 24 Hours 10/26/18 10/26/18 10/26/18 Range/Units 09:25 09:25 09:55 WBC 18.5 H (4.0-10.5) K/mm3 RBC 3.88 L (4.1-5.4) M/mm3 Hgb 13.5 (12.0-16.0) gm/dl Hct 39.8 (35-47) % MCV 102.6 H (78-100) fl MCH 34.7 H (26-32) pg MCHC 33.9 (32-36) g/dl RDW 12.8 (11.5-14.0) % Plt Count 340 (150-450) K/mm3 MPV 8.7 (6-9.5) fl Sodium 142 (137-145) mmol/L Potassium 4.7 (3.5-5.1) mmol/L Chloride 98 (98-107) mmol/L Carbon Dioxide 35 H (22-30) mmol/L Anion Gap 13.6 (5-15) MEQ/L BUN 28 H (7-17) mg/dL Creatinine 0.97 (0.52-1.04) mg/dL Estimated GFR > 60.0 ML/MIN Glucose 217 H (74-106) mg/dL Calcium 9.4 (8.4-10.2) mg/dL Vancomycin Trough 10.61 (10-20) ug/mL Assessment/Plan (1) COPD exacerbation Current Visit: Yes Status: Acute Onset Date: ~10/23/18 Assessment & Plan: Last Vital Signs Temp 98.1 F 10/26/18 07:37 Pulse 80 10/26/18 10:50 Resp 22 10/26/18 12:00 BP 137/68 10/26/18 07:37 Pulse Ox 94 L 10/26/18 10:50 Allergies clavulanic acid [From Augmentin] Allergy (Verified 10/23/18 04:50) codeine [Codeine] Allergy (Verified 08/31/12 20:02) levofloxacin [From Levaquin] Allergy (Verified 10/23/18 04:50) tramadol Allergy (Verified 10/23/18 04:50) Active Medications Acetaminophen (Tylenol 325 Mg) 650 mg PO Q4H PRN PRN PRN Reason: PAIN AND/OR FEVER Stop: 11/22/18 06:53 Albuterol/Ipratropium (Duoneb 0.5-3 Mg/3 Ml Neb) 3 ml IH Q4HPRN PRN PRN Reason: SHORTNESS OF BREATH/WHEEZING Stop: 11/22/18 06:46 Last Admin: 10/23/18 07:03 Dose: 3 ml Albuterol/Ipratropium (Duoneb 0.5-3 Mg/3 Ml Neb) 3 ml IH Q4HRT [facility] Stop: 11/22/18 10:59 Last Admin: 10/26/18 10:48 Dose: 3 ml Allopurinol (Zyloprim 100 Mg) 100 mg PO HS [facility] Stop: 11/22/18 12:59 Alprazolam (Xanax 0.25 Mg) 0.25 mg PO Q4H PRN PRN PRN Reason: ANXIETY Stop: 11/23/18 07:22 Last Admin: 10/26/18 09:53 Dose: 0.25 mg Aspirin (Ecotrin 81 Mg) 81 mg PO MoWeFr [facility] Stop: 12/01/18 09:59 Enoxaparin Sodium (Enoxaparin Sodium) 40 mg SQ DAILY [facility] Stop: 11/22/18 12:59 Last Admin: 10/26/18 11:06 Dose: 40 mg Sodium Chloride (Sodium Chloride 0.9% 1000 Ml) 1,000 mls @ 50 mls/hr IV .Q20H [facility] Stop: 11/22/18 08:59 Last Admin: 10/25/18 12:58 Dose: 50 mls/hr Clindamycin HCl/Dextrose (Clindamycin-D5w 600 Mg/50 Ml) 600 mg in 50 mls @ 100 mls/hr IV Q8HT [facility] Stop: 11/22/18 13:59 Last Admin: 10/26/18 05:45 Dose: 100 mls/hr Vancomycin HCl 1 gm/ Sodium (Chloride) 250 mls @ 166.667 mls/hr IV Q12HT [facility] Stop: 11/25/18 21:59 Levalbuterol HCl (Xopenex 1.25 Mg/0.5 Ml Ud Nebule) 1.25 mg IH Q2HPRN PRN PRN Reason: DIFFICULTY BREATHING Stop: 11/22/18 06:47 Magnesium Oxide (Mag-Ox 400) 400 mg PO DAILY [facility] Stop: 11/22/18 12:59 Last Admin: 10/26/18 11:04 Dose: 400 mg Methylprednisolone Sodium Succinate (Solu-Medrol 40 Mg) 40 mg IV Q8HT [facility] Stop: 11/23/18 13:59 Last Admin: 10/26/18 05:46 Dose: 40 mg Pantoprazole Sodium (Protonix 40 Mg Iv) 40 mg IV Q24H10 [facility] Stop: 11/22/18 13:14 Last Admin: 10/26/18 11:05 Dose: 40 mg Potassium Chloride (Klor Con 10 Meq) 10 meq PO DAILY [facility] Stop: 11/23/18 09:59 Last Admin: 10/26/18 11:04 Dose: 10 meq Fluticasone/Salmeterol (Advair Hfa 230/21 Mcg Common Canister*) 2 puff IH BIDRT [facility] Stop: 11/22/18 09:59 Last Admin: 10/26/18 07:07 Dose: 2 puff Sertraline HCl (Zoloft 50 Mg Tablet) 50 mg PO HS [facility] Stop: 11/22/18 09:59 Tiotropium [place] (Spiriva 18 Mcg/Cap Inhaler) 1 ea IH QPM [facility] Stop: 11/22/18 21:59 Last Admin: 10/25/18 19:17 Dose: 1 ea Torsemide (Demadex 20 Mg) 20 mg PO DAILY [facility] Stop: 11/23/18 09:59 Last Admin: 10/26/18 11:05 Dose: 20 mg Intake & Output 10/26/18 10/27/18 11:59 11:59 Intake Total 1391 Output Total 2800 Balance -1409 Weight 94.9 kg Orders 10/25/18 15:35 Telemetry q6h 10/26/18 07:00 Peak Expiratory Flow Rate DAILY 10/26/18 07:59 Pulse Oximetry CONTINUOUS 10/26/18 09:13 Miscellaneous Nursing Order ROUTINE 10/26/18 09:30 Recertification ROUTINE Lab Tests 10/26/18 10/26/18 10/26/18 09:25 09:25 09:55 WBC 18.5 H RBC 3.88 L Hgb 13.5 Hct 39.8 MCV 102.6 H MCH 34.7 H MCHC 33.9 RDW 12.8 Plt Count 340 MPV 8.7 Sodium 142 Potassium 4.7 Chloride 98 Carbon Dioxide 35 H Anion Gap 13.6 BUN 28 H Creatinine 0.97 Estimated GFR > 60.0 Glucose 217 H Calcium 9.4 Vancomycin Trough 10.61 Microbiology 10/23/18 05:10 Blood Blood Culture - Preliminary NO GROWTH TO DATE 10/23/18 04:46 Blood Blood Culture Gram Stain - Final 10/23/18 04:46 Blood Blood Culture - Preliminary Coagulase Negative Staph. Possible Contaminant. Clinical judgement required. NO FURTHER WORKUP WILL BE PERFORMED UNLESS PHYSICIAN REQUESTED WITHIN THE NEXT 72 HOURS Code(s): J44.1 - CHRONIC OBSTRUCTIVE PULMONARY DISEASE W (ACUTE) EXACERBATION (2) Dyspnea Current Visit: Yes Status: Acute Onset Date: ~10/23/18 Qualifiers: Dyspnea type: dyspnea on exertion Qualified Code(s): R06.09 - Other forms of dyspnea Code(s): R06.00 - DYSPNEA, UNSPECIFIED
[2018-10-26] MEDS: Sodium Chloride 0.9% 10 ML FLUSH Syringe IV SCH ×2 (14:41→21:22)
[2018-10-26] MEDS ORDERED: VANCOCIN 1 GM VIAL*** 1 GM in Sodium Chloride 0.9% 250 ML 250 ML IV SCH (22:00)
[2018-10-26] MEDS ORDERED: ZYLOPRIM 100 MG PO SCH (22:00)
[2018-10-26] MEDS ORDERED: ZOLOFT 50 MG TABLET PO SCH (22:00)
[2018-10-26] MEDS: Spiriva 18 Mcg/Cap Inhaler IH SCH (23:14)
[2018-10-27] MEDS: DUONEB 0.5-3 MG/3 ml Neb IH SCH ×2 (03:23→07:12)
[2018-10-27] MEDS: Sodium Chloride 0.9% 10 ML FLUSH Syringe IV SCH (06:38)
[2018-10-27] MEDS: CLINDAMYCIN-D5W 600 MG/50 ML*** 600 MG/50 ML BAG IV SCH (06:38)
[2018-10-27] MEDS: Advair Hfa 230/21 Mcg COMMON CANISTER IH SCH (07:12)
[2018-10-27 07:20] VITALS: PULSE 72; O2SAT 94
[2018-10-27 07:31] VITALS: BP 123/63
--- NOTE | 2018-10-27 08:33 | PCM.DS ---
Discharge Summary Date of Admission: 10/23/18 13:30 Admitting Physician: URSZULA BENNETT Primary Care Provider: URSZULA BENNETT Allergies Allergies clavulanic acid [From Augmentin] Allergy (Verified 10/23/18 04:50) codeine [Codeine] Allergy (Verified 08/31/12 20:02) levofloxacin [From Levaquin] Allergy (Verified 10/23/18 04:50) tramadol Allergy (Verified 10/23/18 04:50) Hospital Summary - Hospital Course Hospital Course: Last Vital Signs Temp 98.6 F 10/27/18 07:00 Pulse 72 10/27/18 07:18 Resp 20 10/27/18 07:18 BP 123/63 10/27/18 07:00 Pulse Ox 94 L 10/27/18 07:18 Allergies clavulanic acid [From Augmentin] Allergy (Verified 10/23/18 04:50) codeine [Codeine] Allergy (Verified 08/31/12 20:02) levofloxacin [From Levaquin] Allergy (Verified 10/23/18 04:50) tramadol Allergy (Verified 10/23/18 04:50) Active Medications Acetaminophen (Tylenol 325 Mg) 650 mg PO Q4H PRN PRN PRN Reason: PAIN AND/OR FEVER Stop: 11/22/18 06:53 Albuterol/Ipratropium (Duoneb 0.5-3 Mg/3 Ml Neb) 3 ml IH Q4HPRN PRN PRN Reason: SHORTNESS OF BREATH/WHEEZING Stop: 11/22/18 06:46 Last Admin: 10/23/18 07:03 Dose: 3 ml Albuterol/Ipratropium (Duoneb 0.5-3 Mg/3 Ml Neb) 3 ml IH Q4HRT [place] Stop: 11/22/18 10:59 Last Admin: 10/27/18 07:12 Dose: 3 ml Allopurinol (Zyloprim 100 Mg) 100 mg PO HS [place] Stop: 11/22/18 12:59 Last Admin: 10/26/18 21:23 Dose: 100 mg Alprazolam (Xanax 0.25 Mg) 0.25 mg PO Q4H PRN PRN PRN Reason: ANXIETY Stop: 11/23/18 07:22 Last Admin: 10/26/18 09:53 Dose: 0.25 mg Aspirin (Ecotrin 81 Mg) 81 mg PO MoWeFr [facility] Stop: 12/01/18 09:59 Enoxaparin Sodium (Enoxaparin Sodium) 40 mg SQ DAILY [place] Stop: 11/22/18 12:59 Last Admin: 10/26/18 11:06 Dose: 40 mg Clindamycin HCl/Dextrose (Clindamycin-D5w 600 Mg/50 Ml) 600 mg in 50 mls @ 100 mls/hr IV Q8HT [place] Stop: 11/22/18 13:59 Last Admin: 10/27/18 06:38 Dose: 100 mls/hr Levalbuterol HCl (Xopenex 1.25 Mg/0.5 Ml Ud Nebule) 1.25 mg IH Q2HPRN PRN PRN Reason: DIFFICULTY BREATHING Stop: 11/22/18 06:47 Magnesium Oxide (Mag-Ox 400) 400 mg PO DAILY [place] Stop: 11/22/18 12:59 Last Admin: 10/26/18 11:04 Dose: 400 mg Methylprednisolone Sodium Succinate (Solu-Medrol 40 Mg) 40 mg IV Q12HT [facility] Stop: 11/25/18 21:59 Last Admin: 10/26/18 21:22 Dose: 40 mg Pantoprazole Sodium (Protonix 40mg Tablet) 40 mg PO DAILY [facility] Stop: 11/26/18 09:59 Potassium Chloride (Klor Con 10 Meq) 10 meq PO DAILY [place] Stop: 11/23/18 09:59 Last Admin: 10/26/18 11:04 Dose: 10 meq Fluticasone/Salmeterol (Advair Hfa 230/21 Mcg Common Canister*) 2 puff IH BIDRT [place] Stop: 11/22/18 09:59 Last Admin: 10/27/18 07:12 Dose: 2 puff Sertraline HCl (Zoloft 50 Mg Tablet) 50 mg PO HS [facility] Stop: 11/22/18 09:59 Last Admin: 10/26/18 21:22 Dose: 50 mg Sodium Chloride (Sodium Chloride 0.9% 10 Ml Flush Syringe) 10 ml IV Q8HT [facility] Stop: 11/25/18 13:59 Last Admin: 12/05/18 06:38 Dose: 10 ml Tiotropium [place] (Spiriva 18 Mcg/Cap Inhaler) 1 ea IH QPM [facility] Stop: 11/22/18 21:59 Last Admin: 10/26/18 23:14 Dose: 1 ea Torsemide (Demadex 20 Mg) 20 mg PO DAILY [facility] Stop: 11/23/18 09:59 Last Admin: 10/26/18 11:05 Dose: 20 mg Intake & Output 10/26/18 10/27/18 11:59 11:59 Intake Total 1391 1060 Output Total 2800 1450 Balance -1409 -390 Weight 94.9 kg Orders 10/26/18 07:59 Pulse Oximetry CONTINUOUS 10/26/18 09:13 Miscellaneous Nursing Order ROUTINE 10/26/18 09:30 Recertification ROUTINE 10/26/18 14:00 NaCl 0.9% 10 ML FLUSH [Sodium Chloride 0.9% 10 ML FLUSH Syringe] 10 ml IV Q8HT 10/26/18 22:00 Methylprednisolone Sod Suc 40M [solu-MEDROL 40 MG] 40 mg IV Q12HT 10/27/18 10:00 PANTOPRAZOLE 40 mg Tablet [Protonix 40MG Tablet] 40 mg PO DAILY Lab Tests 10/26/18 10/26/18 10/26/18 09:25 09:25 09:55 WBC 18.5 H RBC 3.88 L Hgb 13.5 Hct 39.8 MCV 102.6 H MCH 34.7 H MCHC 33.9 RDW 12.8 Plt Count 340 MPV 8.7 Sodium 142 Potassium 4.7 Chloride 98 Carbon Dioxide 35 H Anion Gap 13.6 BUN 28 H Creatinine 0.97 Estimated GFR > 60.0 Glucose 217 H Calcium 9.4 Vancomycin Trough 10.61 Microbiology 10/23/18 05:10 Blood Blood Culture Gram Stain - Final Not Reportable 10/23/18 05:10 Blood Blood Culture - Final NO GROWTH - Vitals & Intake/Output Vital Signs: Vital Signs Temperature 98.6 F 10/27/18 07:00 Pulse Rate 72 10/27/18 07:18 Respiratory Rate 20 10/27/18 07:18 Blood Pressure 123/63 10/27/18 07:00 O2 Sat by Pulse Oximetry 94 L 10/27/18 07:18 Oxygen-Last Documented O2 Percentage 4 Liters = 36% Intake & Output: Intake & Output 10/24/18 10/25/18 10/26/18 10/27/18 11:59 11:59 11:59 11:59 Intake Total 1190 1692 1391 1060 Output Total 3350 1000 2800 1450 Balance -2160 692 -1409 -390 Weight 94.9 kg - Lab Result Diagrams: 10/26/18 09:25 10/26/18 09:25 Lab Results-Last 24 Hrs: Lab Results-Last 24 Hours 10/26/18 10/26/18 10/26/18 Range/Units 09:25 09:25 09:55 WBC 18.5 H (4.0-10.5) K/mm3 RBC 3.88 L (4.1-5.4) M/mm3 Hgb 13.5 (12.0-16.0) gm/dl Hct 39.8 (35-47) % MCV 102.6 H (78-100) fl MCH 34.7 H (26-32) pg MCHC 33.9 (32-36) g/dl RDW 12.8 (11.5-14.0) % Plt Count 340 (150-450) K/mm3 MPV 8.7 (6-9.5) fl Sodium 142 (137-145) mmol/L Potassium 4.7 (3.5-5.1) mmol/L Chloride 98 (98-107) mmol/L Carbon Dioxide 35 H (22-30) mmol/L Anion Gap 13.6 (5-15) MEQ/L BUN 28 H (7-17) mg/dL Creatinine 0.97 (0.52-1.04) mg/dL Estimated GFR > 60.0 ML/MIN Glucose 217 H (74-106) mg/dL Calcium 9.4 (8.4-10.2) mg/dL Vancomycin Trough 10.61 (10-20) ug/mL Micro Results-Entire Visit: Microbiology 10/23/18 05:10 Blood Culture Gram Stain - Final Blood Not Reportable Blood Culture - Final NO GROWTH 10/23/18 04:46 Blood Culture Gram Stain - Final Blood Blood Culture - Preliminary Coagulase Negative Staph. Possible Contaminant. Clinical judgement required. NO FURTHER WORKUP WILL BE PERFORMED UNLESS PHYSICIAN REQUESTED WITHIN THE NEXT 72 HOURS - Procedures and Test Procedures and Tests throughout Hospitalization: Therapy Orders & Screens 10/23/18 04:45 BiPap/CPAP STAT Comment: 10/23/18 04:47 Respiratory Nebulizer STAT Comment: Diagnosis: Shortness of Breath 10/23/18 05:23 Respiratory Therapy Assessment DAILY Comment: Diagnosis: Shortness of Breath 10/23/18 06:45 Respiratory Therapy Consult ROUTINE Comment: Reason For Exam: Diagnosis: Shortness of Breath 10/23/18 09:48 BiPap/CPAP ROUTINE Comment: Diagnosis: acute exacerbation COPD Oxygen NASAL CANNULA 4 lpm Comment: Diagnosis: acute exacerbation COPD 10/23/18 09:49 Peak Expiratory Flow Rate ONCE Comment: Reason For Exam: Diagnosis: acute exacerbation COPD Respiratory Therapy Assessment DAILY Comment: Diagnosis: acute exacerbation COPD 10/26/18 07:00 Peak Expiratory Flow Rate DAILY Comment: Reason For Exam: Diagnosis: shortness of breath and cough for 3-4 days Discharge Exam General Appearance: no apparent distress, alert Neurologic Exam: alert, oriented x 3, cooperative, normal mood/affect, nml cerebellar function, sensation nml, No motor deficits Skin Exam: normal color, warm, dry Eye Exam: PERRL, EOMI, eyes nml inspection Ears, Nose, Throat Exam: normal ENT inspection, pharynx normal, moist mucous membranes Neck Exam: normal inspection, non-tender, supple, full range of motion Respiratory Exam: normal breath sounds, lungs clear, No respiratory distress Cardiovascular Exam: regular rate/rhythm, normal heart sounds Gastrointestinal/Abdomen Exam: soft, No tenderness, No mass Extremity Exam: normal inspection, normal range of motion Back Exam: normal inspection, normal range of motion, No CVA tenderness, No vertebral tenderness Pelvic Exam: deferred Rectal Exam: deferred Final Diagnosis/Problem List - Final Discharge Diagnosis/Problem (1) COPD exacerbation Current Visit: Yes Status: Resolved Onset Date: ~10/23/18 Assessment & Plan: Chief Complaint Diagnosis shortness of breath and cough for 3-4 days Allergies Allergy/AdvReac Type Severity Reaction Status Date / Time clavulanic acid Allergy Verified 10/23/18 04:50 [From Augmentin] codeine [Codeine] Allergy Verified 08/31/12 20:02 levofloxacin [From Levaquin] Allergy Verified 10/23/18 04:50 tramadol Allergy Verified 10/23/18 04:50 Vital Signs (Last 24 hours) Temp Pulse Resp BP Pulse Ox 10/27/18 07:18 72 20 94 L 10/27/18 07:00 98.6 F 76 20 123/63 90 L 10/27/18 04:00 20 10/27/18 03:23 61 20 100 10/27/18 03:00 97.8 F 63 14 115/59 100 10/27/18 00:00 16 10/26/18 23:23 64 16 95 10/26/18 23:00 97.8 F 72 17 122/67 98 10/26/18 20:00 20 10/26/18 19:58 97.5 F 78 20 119/56 95 10/26/18 19:23 76 18 92 L 10/26/18 16:00 18 10/26/18 14:44 79 18 93 L 10/26/18 14:00 98.1 F 89 18 133/76 94 L 10/26/18 12:00 22 10/26/18 10:50 80 20 94 L Home Medications Medication Instructions Recorded Confirmed Last Taken Type Allopurinol 100 mg [Zyloprim 100 mg PO DAILY 10/23/18 10/23/18 10/22/18 History 100 mg] 100 Magnesium Oxide [Magnesium] 400 mg PO DAILY 10/23/18 10/23/18 Unknown History Prednisone 10 mg [Deltasone 10 10 mg PO DAILY 10/23/18 10/23/18 10/22/18 History mg] 10 Sertraline HCl 50 mg PO DAILY 10/23/18 10/23/18 10/22/18 History 50 Current Medications Generic Name Dose Route Start Last Admin Trade Name Freq PRN Reason Stop Dose Admin Acetaminophen 650 mg 10/23/18 06:54 Tylenol 325 Mg PO 11/22/18 06:53 Q4H PRN PRN PAIN AND/OR FEVER Albuterol/Ipratropium 3 ml 10/23/18 06:47 10/23/18 07:03 Duoneb 0.5-3 Mg/3 Ml Neb IH 11/22/18 06:46 3 ml Q4HPRN PRN Administration SHORTNESS OF BREATH/WHEEZING Albuterol/Ipratropium 3 ml 10/23/18 11:00 10/27/18 07:12 Duoneb 0.5-3 Mg/3 Ml Neb IH 11/22/18 10:59 3 ml Q4HRT [place] Administration Allopurinol 100 mg 10/26/18 22:00 10/26/18 21:23 Zyloprim 100 Mg PO 11/22/18 12:59 100 mg HS [place] Administration Alprazolam 0.25 mg 10/24/18 07:23 10/26/18 09:53 Xanax 0.25 Mg PO 11/23/18 07:22 0.25 mg Q4H PRN PRN Administration ANXIETY Aspirin 81 mg 11/01/18 10:00 Ecotrin 81 Mg PO 12/01/18 09:59 MoWeFr [place] Enoxaparin Sodium 40 mg 10/23/18 13:00 10/26/18 11:06 Enoxaparin Sodium SQ 11/22/18 12:59 40 mg DAILY [place] Administration Clindamycin HCl/Dextrose 600 mg in 50 mls @ 100 mls/hr 10/23/18 14:00 06:38 Clindamycin-D5w 600 Mg/50 Ml IV 11/22/18 13:59 100 mls/hr Q8HT [place] Administration Levalbuterol HCl 1.25 mg 10/23/18 06:48 Xopenex 1.25 Mg/0.5 Ml Ud Nebule IH 11/22/18 06:47 Q2HPRN PRN DIFFICULTY BREATHING Magnesium Oxide 400 mg 10/23/18 13:00 10/26/18 11:04 Mag-Ox 400 PO 11/22/18 12:59 400 mg DAILY [place] Administration Methylprednisolone Sodium Succinate 40 mg 10/26/18 22:00 10/26/18 21:22 Solu-Medrol 40 Mg IV 11/25/18 21:59 40 mg Q12HT [place] Administration Pantoprazole Sodium 40 mg 10/27/18 10:00 Protonix 40mg Tablet PO 11/26/18 09:59 DAILY [place] Potassium Chloride 10 meq 10/24/18 10:00 10/26/18 11:04 Klor Con 10 Meq PO 11/23/18 09:59 10 meq DAILY [place] Administration Fluticasone/Salmeterol 2 puff 10/23/18 10:00 10/27/18 07:12 Advair Hfa 230/21 Mcg Common Canister* IH 11/22/18 09:59 2 puff BIDRT [place] Administration Sertraline HCl 50 mg 10/26/18 22:00 10/26/18 21:22 Zoloft 50 Mg Tablet PO 11/22/18 09:59 50 mg HS [place] Administration Sodium Chloride 10 ml 10/26/18 14:00 10/27/18 06:38 Sodium Chloride 0.9% 10 Ml Flush Syringe IV 11/25/18 13:59 10 ml Q8HT [place] Administration Tiotropium [place] 1 ea 10/23/18 22:00 10/26/18 23:14 Spiriva 18 Mcg/Cap Inhaler IH 11/22/18 21:59 1 ea QPM [place] Administration Torsemide 20 mg 10/24/18 10:00 10/26/18 11:05 Demadex 20 Mg PO 11/23/18 09:59 20 mg DAILY [facility] Administration Discontinued Medications Generic Name Dose Route Start Last Admin Trade Name Freq PRN Reason Stop Dose Admin Albuterol Sulfate 2.5 mg 10/23/18 04:45 10/23/18 05:06 Proventil 2.5 Mg/3 Ml Neb IH 10/23/18 04:46 2.5 mg STAT ONE Administration Albuterol Sulfate Confirm 10/23/18 04:54 Proventil 2.5 Mg/3 Ml Neb Administered 10/23/18 04:55 Dose 2.5 mg IH .STK-MED ONE Albuterol/Ipratropium Confirm 10/23/18 04:54 Duoneb 0.5-3 Mg/3 Ml Neb Administered 10/23/18 04:55 Dose 3 ml IH .STK-MED ONE Albuterol/Ipratropium 3 ml 10/23/18 04:54 10/23/18 04:58 Duoneb 0.5-3 Mg/3 Ml Neb IH 10/23/18 04:55 3 ml STAT ONE Administration Allopurinol 100 mg 10/23/18 13:00 10/26/18 11:06 Zyloprim 100 Mg PO 11/22/18 12:59 Not Given DAILY [place] Device 1 10/26/18 09:30 10/26/18 11:06 Trough Drug Levels IJ 10/26/18 09:31 1 1XONLY ONE Administration Levofloxacin/Dextrose 750 mg in 150 mls @ 100 mls/hr 10/23/18 04:45 10/23/18 05:46 Levofloxacin 750mg/150ml D5w IV 10/23/18 06:14 Not Given STAT STA Sodium Chloride 1,000 mls @ 999 mls/hr 10/23/18 04:45 10/23/18 07:02 Sodium Chloride 0.9% 1000 Ml IV 10/23/18 05:45 Infused .Q1H1M STA Infusion Sodium Chloride Confirm 10/23/18 05:06 Sodium Chloride 0.9% 1000 Ml Administered 10/23/18 05:07 Dose 1,000 mls @ ud .ROUTE .STK-MED ONE Sodium Chloride 1,000 mls @ 999 mls/hr 10/23/18 05:09 Sodium Chloride 0.9% 1000 Ml IV 10/23/18 06:09 .Q1H1M STA Ceftriaxone Sodium/Dextrose 1 g in 50 mls @ 100 mls/hr 10/23/18 06:05 07:03 Rocephin 1 Gm-D5w 50 Ml Bag IV 10/23/18 06:34 Infused STAT STA Infusion Azithromycin 500 mg in 250 mls @ 250 mls/hr 10/23/18 06:12 10/23/18 06:39 Zithromax 500 Mg/ 250 Ml Nacl Premix IV 10/23/18 07:11 250 mls/hr STAT STA 250 mls/hr Administration Ceftriaxone Sodium/Dextrose Confirm 10/23/18 06:19 Rocephin 1 Gm-D5w 50 Ml Bag Administered 10/23/18 06:20 Dose 1 g in 50 mls @ ud IV .STK-MED ONE Azithromycin Confirm 10/23/18 06:39 Zithromax 500 Mg/ 250 Ml Nacl Premix Administered 10/23/18 06:40 Dose 500 mg in 250 mls @ ud IV .STK-MED ONE Ceftriaxone Sodium/Dextrose 1 g in 50 mls @ 100 mls/hr 10/24/18 10:00 Rocephin 1 Gm-D5w 50 Ml Bag IV 11/23/18 09:59 Q24H10 [place] Azithromycin 500 mg in 250 mls @ 250 mls/hr 10/24/18 10:00 Zithromax 500 Mg/ 250 Ml Nacl Premix IV 11/23/18 09:59 Q24H10 [place] Sodium Chloride 1,000 mls @ 50 mls/hr 10/23/18 09:00 10/25/18 12:58 Sodium Chloride 0.9% 1000 Ml IV 11/22/18 08:59 50 mls/hr .Q20H [place] Administration Vancomycin HCl 2 gm in 500 mls @ 125 mls/hr 10/24/18 04:00 10/24/18 03:49 Vancomycin 1gm/ Ns 250ml IV 10/24/18 07:59 125 mls/hr ONCE ONE Administration Vancomycin HCl 0.75 gm/ Sodium 150 mls @ 100 mls/hr 10/24/18 22:00 10/26/18 11:04 Chloride IV 11/23/18 21:59 100 mls/hr Q12HT [place] Administration Vancomycin HCl 1 gm/ Sodium 250 mls @ 166.667 mls/hr 10/26/18 22:00 Chloride IV 11/25/18 21:59 Q12HT [place] Methylprednisolone Sodium Succinate 60 mg 10/23/18 08:30 10/24/18 05:55 Solu-Medrol 125 Mg IV 11/22/18 08:29 60 mg Q8HT [place] Administration Methylprednisolone Sodium Succinate 40 mg 10/24/18 14:00 10/26/18 05:46 Solu-Medrol 40 Mg IV 11/23/18 13:59 40 mg Q8HT [place] Administration Non-Formulary Medication 1 each 10/24/18 03:23 10/24/18 03:40 Pharmacy Dosing Required: Vancomycin IV 10/24/18 03:24 1 each STAT ONE Administration Pantoprazole Sodium 40 mg 10/23/18 13:15 10/26/18 11:05 Protonix 40 Mg Iv IV 11/22/18 13:14 40 mg Q24H10 [place] Administration Potassium Chloride 20 meq 10/23/18 10:00 10/23/18 10:09 Klor Con 10 Meq PO 11/22/18 09:59 20 meq DAILY [place] Administration Sertraline HCl 50 mg 10/23/18 10:00 10/26/18 11:04 Zoloft 50 Mg Tablet PO 11/22/18 09:59 Not Given DAILY [place] Torsemide 40 mg 10/23/18 10:00 10/23/18 10:10 Demadex 20 Mg PO 11/22/18 09:59 40 mg DAILY [place] Administration Intake & Output (Last 24 hours) 10/24/18 10/25/18 10/26/18 10/27/18 11:59 11:59 11:59 11:59 Intake Total 1190 1692 1391 1060 Output Total 3350 1000 2800 1450 Balance -2160 692 -1409 -390 Weight 94.9 kg Microbiology Results (Last 24 hours) 10/23/18 05:10 Blood Blood Culture Gram Stain - Final Not Reportable 10/23/18 05:10 Blood Blood Culture - Final NO GROWTH Laboratory Results (Last 24 hours) 10/26/18 10/26/18 10/26/18 09:55 09:25 09:25 WBC 18.5 H RBC 3.88 L Hgb 13.5 Hct 39.8 MCV 102.6 H MCH 34.7 H MCHC 33.9 RDW 12.8 Plt Count 340 MPV 8.7 Sodium 142 Potassium 4.7 Chloride 98 Carbon Dioxide 35 H Anion Gap 13.6 BUN 28 H Creatinine 0.97 Estimated GFR > 60.0 Glucose 217 H Calcium 9.4 Vancomycin Trough 10.61 Orders (Last 24 hours) Category Date Time Status Recertification ROUTINE Admission 10/26/18 09:30 Active Miscellaneous Nursing Order ROUTINE Care 10/26/18 09:13 Active BMP Urgent Lab 10/26/18 09:25 Completed CBC Urgent Lab 10/26/18 09:25 Completed Vancomycin, Trough Urgent Lab 10/26/18 09:55 Completed Allopurinol 100 mg [Zyloprim 100 mg] Med 10/26/18 22:00 Active 100 mg PO HS Aspirin EC 81 mg [Ecotrin 81 mg] Med 11/01/18 10:00 Active 81 mg PO MoWeFr Methylprednisolone Sod Suc 40M [solu-MEDROL 40 MG] Med 10/26/18 22:00 Active 40 mg IV Q12HT NaCl 0.9% 10 ML FLUSH [Sodium Chloride 0.9% 10 ML FLUSH Med 10/26/18 14:00 Active Syringe] 10 ml IV Q8HT PANTOPRAZOLE 40 mg Tablet [Protonix 40MG Tablet] Med 10/27/18 10:00 Active 40 mg PO DAILY Sertraline HCl 50 mg [Zoloft 50 mg Tablet] Med 10/26/18 22:00 Active 50 mg PO HS Therapuetic Drug Level Monitor [Trough Drug Levels] Med 10/26/18 09:30 Discontinued 1 IJ 1XONLY ONE Vancomycin HCl 1 gm Inj [Vancocin 1 gm Vial] 1 gm Med 10/26/18 22:00 Discontinued NaCl 0.9% 250 ml [Sodium Chloride 0.9% 250 ML] 250 ml IV Q12HT Pulse Oximetry CONTINUOUS RT 10/26/18 07:59 Active Patient Care Notes (Last 24 hours) 10/26/18 12:47 Pharmacy Note by Ronny Gibson Protonix changed from IV to Oral per policy. Initialized on 10/26/18 12:47 - END OF NOTE 10/26/18 10:21 Nursing Note by Marie Ascencio Patient ambulated with this nurse for 140 ft. Before starting walk, patient O2 Sat was 92%. At the end of walking O2 was 85%. Took pt 45 seconds to recover to 88% O2, and 1.5 min to recover to 92%. After patient recovered, she had an episode of tremors, dropping her O2 to 79%. She recovered to 90% after 2 minutes. Pt walks with a steady gait with walker and was not injured during tremor episode. Addendum entered by Marie Ascencio 10/26/18 10:25: Respiratory therapy also notified of low O2 and will come evaluate and give breathing tx. Will continue to monitor patient closely Initialized on 10/26/18 10:21 - END OF NOTE (2) Dyspnea Current Visit: Yes Status: Resolved Onset Date: ~10/23/18 - Discharge Discharge Date: 10/27/18 Disposition: Home, Self-Care Condition: Stable Prescriptions: Continue Torsemide 20 mg PO DAILY Combivent Inhaler 2 puff PO Q4HPRN PRN PRN Reason: Cough Potassium Chloride 10 Meq Tab* [Klor Con 10 MEQ] 10 meq PO DAILY Budesonide/Formoterol Fumarate [Symbicort 160-4.5 Mcg Inhaler] 10.2 gm IH DAILY Aspirin EC 81 mg [Ecotrin 81 mg] 81 mg PO 3XW Sertraline HCl 50 mg PO DAILY Prednisone 10 mg [Deltasone 10 mg] 10 mg PO DAILY Allopurinol 100 mg [Zyloprim 100 mg] 100 mg PO DAILY Magnesium Oxide [Magnesium] 400 mg PO DAILY Follow up with: URSZULA BENNETT MD [Primary Care Provider] - 1 Week
[2018-10-27] MEDS: ENOXAPARIN SODIUM SQ SCH (09:13)
[2018-10-27] MEDS: MAG-OX 400 PO SCH (09:13)
[2018-10-27] MEDS: Klor Con 10 MEQ PO SCH (09:13)
[2018-10-27] MEDS: solu-MEDROL 40 MG IV SCH (09:13)
[2018-10-27] MEDS: DEMADEX 20 MG PO SCH (09:14)
[2018-10-27] MEDS ORDERED: Protonix 40MG Tablet PO SCH (10:00)
[2018-11-01] MEDS ORDERED: ECOTRIN 81 MG PO SCH (10:00)
== END 2018-10-27 10:10 | disposition home health service (06) | DRG 190 ==
LOC: ED 04:38 → ICU 08:03 → OBSVTOIN 13:30 → MED SURG 10-25 14:11
PROVIDERS: ADMIT General Practice; ATTEND General Practice
DX: J44.1 Chronic obstructive pulmonary disease with (acute) exacerbation (principal); J96.20 Acute and chronic respiratory failure, unspecified whether with hypoxia or hypercapnia; J18.0 Bronchopneumonia, unspecified organism; R78.81 Bacteremia; G47.419 Narcolepsy without cataplexy; G47.30 Sleep apnea, unspecified; I11.0 Hypertensive heart disease with heart failure; I50.9 Heart failure, unspecified; M19.90 Unspecified osteoarthritis, unspecified site; Z79.899 Other long term (current) drug therapy; F41.9 Anxiety disorder, unspecified; E66.9 Obesity, unspecified; Z72.0 Tobacco use
CPT/HCPCS: 36000; 36415; 36600; 71045; 80048; 80053; 80202; 82375; 82803; 83605; 83735; 83880; 84484; 85025; 85027; 85379; 85610; 87040; 87631; 93005; 93041; 93268; 94002; 94003; 94150; 94640; 94760; 94762; 96360; 96365; 96367; 96374; 96375; 99285; J0456; J0696; J1650; J2920; J2930; J3370; J7609; A9270-GY

== ENCOUNTER 2019-01-05 00:58 | Inpatient (IN) | payer MEDICARE ==
[2019-01-05] MEDS ORDERED: ROCEPHIN 1 Gm-D5w 50 ml Bag** 1 G/50 ML IVPB IV STA (01:01)
[2019-01-05] MEDS ORDERED: DUONEB 0.5-3 MG/3 ml Neb IH ONE ×4 (01:01→04:00)
[2019-01-05] MEDS ORDERED: solu-MEDROL 125 MG IV ONE (01:01)
[2019-01-05] MEDS ORDERED: Zithromax 500 MG/ 250 ML NaCl Premix 500 MG/250 ML IVPB IV STA (01:01)
[2019-01-05 01:24] LABS: A-aADO2 132; ABG HEMOGLOBIN 13.4; ABG POTASSIUM 4.1 (3.5-5.1); ARTERIAL BLD GAS O2 SATURATION 90.5 % (95-100); ARTERIAL BLOOD GAS BASE EXCESS 10.1 (-2.0-2.0); ARTERIAL BLOOD GAS FIO2 36 %; HCO3- 37.2 (22-28); HGB O2 SAT 86.4 g/dF (94-100); Lactic Acid 1.5 (0.4-2.0); Methhemoglobin 0.5 % (1.4-1.5); paO2 pAO1 0.27
[2019-01-05 01:25] LABS: ARTERIAL BLOOD GAS PCO2 60 mmHg (35-45)
[2019-01-05 01:26] LABS: ARTERIAL BLOOD GAS PO2 50 mmHg (75-100)
[2019-01-05] MEDS ORDERED: solu-MEDROL 125 MG ONE (01:28)
[2019-01-05] MEDS ORDERED: ROCEPHIN 1 Gm-D5w 50 ml Bag** 1 G/50 ML IVPB IV ONE (01:28)
[2019-01-05 01:35] LABS: BASOPHIL % 0.3 % (0.0-0.4); Basophil (Absolute #) 0.04 (0-0.4); Eosinophil % 0.3 % (0.00-5.0); Eosinophil (Absolute #) 0.04 (0-0.5); Granulocytes % 81.3 % (36.0-66.0); Hematocrit 39.3 % (35-47); Hemoglobin 13.1 gm/dl (12.0-16.0); Lymphocyte (Absolute #) 1.28 (1.0-4.6); Lymphocytes % 8.7 % (24.0-44.0); Mean Cell Volume 103.4 fl (78-100); Mean Corpuscular Hgb Concent. 33.3 g/dl (32-36); Mean Platelet Volume 8.6 fl (6-9.5); Monocyte (Absolute #) 1.37 (0.0-1.3); Monocytes % 9.4 % (0.0-12.0); Platelet Count 351 K/mm3 (150-450); Red Cell Distribution Width 13.8 % (11.5-14.0); White Blood Count 14.6 K/mm3 (4.0-10.5)
[2019-01-05 01:37] LABS: Mean Corpuscular Hemoglobin 34.4 pg (26-32)
[2019-01-05 01:46] LABS: ALBUMIN 4.1 g/dL (3.5-5.0); ALKALINE PHOSPHATASE 148 U/L (38-126); ANION GAP 12.1 MEQ/L (5-15); BLOOD UREA NITROGEN 19 mg/dL (7-17); CHLORIDE 99 mmol/L (98-107); Calcium 10.2 mg/dL (8.4-10.2); Carbon Dioxide 33 mmol/L (22-30); Creatinine 1 0.93 mg/dL (0.52-1.04); Glucose 105 mg/dL (74-106); Potassium 4.3 mmol/L (3.5-5.1); SGOT/AST 18 U/L (14-36); SGPT/ALT 22 U/L (0-35); SODIUM 140 mmol/L (137-145); Total Protein 7.1 g/dL (6.3-8.2)
[2019-01-05 02:06] LABS: INFLUENZA A NEGATIVE (NEGATIVE); INFLUENZA B NEGATIVE (NEGATIVE); RESPIRATORY SYNCTIAL VIRUS NEGATIVE (Negative)
[2019-01-05] MEDS ORDERED: PULMICORT 0.5 MG/2 ML RESPULES IH ONE ×2 (03:53→04:01)
--- NOTE | 2019-01-05 07:18 | ERPHSYRPT ---
- History of Present Illness Source: patient, family Exam Limitations: no limitations Patient Subjective Stated Complaint: SOB, prod cough, clear in color, diff catching breath Triage Nursing Assessment: Pt a/o x3, brought in by wheelchair, lungs dim and coarse, post exp wheezes, accessory muscle use noted Physician History: Pt is a 63 y/o female with a history of COPD with hypoxia on home O2, and JUAN MANUEL on a CPAP. She presented via EMS secondary to progressive SOB and increase work of breathing. Pt denies F/C?S. States, she called her PCP and was placed on Keflex. She called again a couple of days later, and was told that she needs to give the ABX time to work. She presented to the ED, as she was extremely dysgenic and tired. Timing/Duration: day(s) Cough Quality/Degree: dry cough Possible Cause: chronic episodes Modifying Factors: Improves With: albuterol nebulizer, oxygen Associated Symptoms: shortness of breath, wheezing Allergies/Adverse Reactions: clavulanic acid [From Augmentin] Allergy (Verified 10/23/18 04:50) codeine [Codeine] Allergy (Verified 08/31/12 20:02) levofloxacin [From Levaquin] Allergy (Verified 10/23/18 04:50) tramadol Allergy (Verified 10/23/18 04:50) Home Medications: Aspirin EC 81 mg [Ecotrin 81 mg] 81 mg PO 3XW 08/31/12 [History] Budesonide/Formoterol Fumarate [Symbicort 160-4.5 Mcg Inhaler] 10.2 gm IH DAILY 08/31/12 [History] Combivent Inhaler 2 puff PO Q4HPRN PRN 08/31/12 [History] Potassium Chloride 10 Meq Tab* [Klor Con 10 MEQ] 10 meq PO DAILY 08/31/12 [ History] Torsemide 20 mg PO DAILY 08/31/12 [History] Allopurinol 100 mg [Zyloprim 100 mg] 100 mg PO DAILY 10/23/18 [History] Magnesium Oxide [Magnesium] 400 mg PO DAILY 10/23/18 [History] Prednisone 10 mg [Deltasone 10 mg] 10 mg PO DAILY 10/23/18 [History] Sertraline HCl 50 mg PO DAILY 10/23/18 [History] Hx Tetanus, Diphtheria Vaccination/Date Given: Yes Hx Influenza Vaccination/Date Given: Yes Hx Pneumococcal Vaccination/Date Given: No - Review of Systems Constitutional: Fatigue, Lethargy, No Fever, No Chills Eyes: No Symptoms Ears, Nose, & Throat: No Symptoms Respiratory: Cough, Dyspnea, Wheezing Cardiac: No Chest Pain, No Edema, No Syncope Abdominal/Gastrointestinal: No Abdominal Pain, No Nausea, No Vomiting, No Diarrhea Genitourinary Symptoms: No Dysuria Musculoskeletal: No Back Pain, No Neck Pain Neurological: No Dizziness, No Focal Weakness, No Sensory Changes - Past Medical History Pertinent Past Medical History: Yes Neurological History: No Pertinent History ENT History: No Pertinent History Cardiac History: No Pertinent History Respiratory History: COPD, Sleep Apnea, Other Endocrine Medical History: No Pertinent History Musculoskeletal History: Arthritis GI Medical History: No Pertinent History History: No Pertinent History Psycho-Social History: Anxiety Female Reproductive Disorders: No Pertinent History Other Medical History: NARCOLEPSY. RESTLESS LEG SYNDROME - Past Surgical History Past Surgical History: Yes Neuro Surgical History: No Pertinent History Cardiac: Cardiac Catheterization Respiratory: No Pertinent History Gastrointestinal: Appendectomy Genitourinary: No Pertinent History Musculoskeletal: Other Female Surgical History: Hysterectomy Other Surgical History: biopsy of lump from neck - Social History Smoking Status: Current every day smoker How long have you smoked: 47 years Exposure to second hand smoke: No Drug Use: none Patient Lives Alone: No - Nursing Vital Signs Nursing Vital Signs: Initial Vital Signs Temperature 100.2 F 01/05/19 00:59 Pulse Rate 103 H 01/05/19 00:59 Respiratory Rate 20 01/05/19 00:59 Blood Pressure 109/44 01/05/19 00:59 O2 Sat by Pulse Oximetry 91 L 01/05/19 00:59 - Physical Exam General Appearance: severe distress, lethargy Eye Exam: PERRL/EOMI, eyes nml inspection Ears, Nose, Throat Exam: normal ENT inspection, TMs normal, pharynx normal, moist mucous membranes Neck Exam: normal inspection, non-tender, supple, full range of motion Respiratory Exam: respiratory distress, accessory muscle use, wheezing (and tightness b/l) Cardiovascular Exam: regular rate/rhythm, normal heart sounds Gastrointestinal/Abdomen Exam: soft, No tenderness Extremity Exam: normal inspection, normal range of motion Neurologic Exam: alert, oriented x 3, cooperative, normal mood/affect, sensation nml, No motor deficits SpO2: 95 - Course Nursing assessment & vital signs reviewed: Yes Ordered Tests: Active Orders 24 hr Category Date Time Status Pump Servicer STAT Care 01/05/19 01:02 Active EKG-ER Only STAT Care 01/05/19 01:01 Active IV Insertion STAT Care 01/05/19 01:01 Active Oxygen-ED Only Nasal Cannula 2 lpm Care 01/05/19 01:01 Active CHEST 2 VIEWS (PA AND LAT) Stat Exams 01/05/19 01:02 Taken ARTERIAL BLOOD GASES Stat Lab 01/05/19 01:17 Results CBC W DIFF Stat Lab 01/05/19 01:29 Completed CMP Stat Lab 01/05/19 01:29 Completed Lactic Acid Stat Lab 01/05/19 01:17 Results Respiratory Nebulizer STAT RT 01/05/19 01:03 Completed Respiratory Nebulizer STAT RT 01/05/19 03:33 Ordered Respiratory Nebulizer STAT RT 01/05/19 04:00 Ordered Respiratory Nebulizer STAT RT 01/05/19 04:01 Ordered Medication Summary Discontinued Medications Generic Name Dose Route Start Last Admin Trade Name Freq PRN Reason Stop Dose Admin Albuterol/Ipratropium 3 ml 01/05/19 01:01 01/05/19 01:04 Duoneb 0.5-3 Mg/3 Ml Neb IH 01/05/19 01:02 3 ml STAT ONE Administration Albuterol/Ipratropium Confirm 01/05/19 01:01 Duoneb 0.5-3 Mg/3 Ml Neb Administered 01/05/19 01:02 Dose 3 ml IH .STK-MED ONE Albuterol/Ipratropium Confirm 01/05/19 03:44 Duoneb 0.5-3 Mg/3 Ml Neb Administered 01/05/19 03:45 Dose 3 ml IH .STK-MED ONE Budesonide Confirm 01/05/19 03:53 Pulmicort 0.5 Mg/2 Ml Respules Administered 01/05/19 03:54 Dose 0.5 mg IH .STK-MED ONE Ceftriaxone Sodium/Dextrose 1 g in 50 mls @ 100 mls/hr 01/05/19 01:01 02:48 Rocephin 1 Gm-D5w 50 Ml Bag IV 02/13/19 01:30 Infused STAT STA Infusion Azithromycin 500 mg in 250 mls @ 250 mls/hr 01/05/19 01:01 01/05/19 04:32 Zithromax 500 Mg/ 250 Ml Nacl Premix IV 01/05/19 02:00 Infused STAT STA Infusion Ceftriaxone Sodium/Dextrose Confirm 01/05/19 01:28 Rocephin 1 Gm-D5w 50 Ml Bag Administered 01/05/19 01:29 Dose 1 g in 50 mls @ ud IV .STK-MED ONE Methylprednisolone Sodium Succinate 125 mg 01/05/19 01:01 01/05/19 01:35 Solu-Medrol 125 Mg IV 01/05/19 01:02 125 mg STAT ONE Administration Methylprednisolone Sodium Succinate Confirm 01/05/19 01:28 Solu-Medrol 125 Mg Administered 01/05/19 01:29 Dose 125 mg .ROUTE .STK-MED ONE Lab/Rad Data: Laboratory Result Diagrams 01/05/19 01:29 01/05/19 01:29 Laboratory Results 01/05/19 01/05/19 01/05/19 Range/Units 01:30 01:29 01:29 WBC 14.6 H (4.0-10.5) K/mm3 RBC 3.80 L (4.1-5.4) M/mm3 Hgb 13.1 (12.0-16.0) gm/dl Hct 39.3 (35-47) % MCV 103.4 H (78-100) fl MCH 34.4 H (26-32) pg MCHC 33.3 (32-36) g/dl RDW 13.8 (11.5-14.0) % Plt Count 351 (150-450) K/mm3 MPV 8.6 (6-9.5) fl Gran % 81.3 H (36.0-66.0) % Eos # (Auto) 0.04 (0-0.5) Absolute Lymphs (auto) 1.28 (1.0-4.6) Absolute Monos (auto) 1.37 H (0.0-1.3) Lymphocytes % 8.7 L (24.0-44.0) % Monocytes % 9.4 (0.0-12.0) % Eosinophils % 0.3 (0.00-5.0) % Basophils % 0.3 (0.0-0.4) % Absolute Granulocytes 11.90 H (1.4-6.9) Basophils # 0.04 (0-0.4) Puncture Site pCO2 (35-45) mmHg pO2 (75-100) mmHg Base Excess (-2.0-2.0) O2 Saturation (94-100) g/dF ABG pH (7.35-7.45) ABG HCO3 (22-28) ABG O2 Sat (Measured) (95-100) % Alexey Test A-a Gradient a/A Ratio Hemoglobin Carboxyhemoglobin (0.0-6.9) % THgb Methemoglobin (1.4-1.5) % Potassium 4.3 (3.5-5.1) Temperature C POC O2 Flow Rate % Sodium 140 (137-145) mmol/L Chloride 99 (98-107) mmol/L Carbon Dioxide 33 H (22-30) mmol/L Anion Gap 12.1 (5-15) MEQ/L BUN 19 H (7-17) mg/dL Creatinine 0.93 (0.52-1.04) mg/dL Estimated GFR > 60.0 ML/MIN Glucose 105 (74-106) mg/dL Lactic Acid (0.4-2.0) Calcium 10.2 (8.4-10.2) mg/dL Total Bilirubin 0.30 (0.2-1.3) mg/dL AST 18 (14-36) U/L ALT 22 (0-35) U/L Alkaline Phosphatase 148 H (38-126) U/L Serum Total Protein 7.1 (6.3-8.2) g/dL Albumin 4.1 (3.5-5.0) g/dL Influenza Type A Ag NEGATIVE (NEGATIVE) Influenza Type B Ag NEGATIVE (NEGATIVE) RSV (PCR) NEGATIVE (Negative) 01/05/19 Range/Units 01:17 WBC (4.0-10.5) K/mm3 RBC (4.1-5.4) M/mm3 Hgb (12.0-16.0) gm/dl Hct (35-47) % MCV (78-100) fl MCH (26-32) pg MCHC (32-36) g/dl RDW (11.5-14.0) % Plt Count (150-450) K/mm3 MPV (6-9.5) fl Gran % (36.0-66.0) % Eos # (Auto) (0-0.5) Absolute Lymphs (auto) (1.0-4.6) Absolute Monos (auto) (0.0-1.3) Lymphocytes % (24.0-44.0) % Monocytes % (0.0-12.0) % Eosinophils % (0.00-5.0) % Basophils % (0.0-0.4) % Absolute Granulocytes (1.4-6.9) Basophils # (0-0.4) Puncture Site Pending pCO2 60 H* (35-45) mmHg pO2 50 L* (75-100) mmHg Base Excess 10.1 H (-2.0-2.0) O2 Saturation 86.4 L (94-100) g/dF ABG pH 7.40 (7.35-7.45) ABG HCO3 37.2 H* (22-28) ABG O2 Sat (Measured) 90.5 L (95-100) % Alexey Test Pending A-a Gradient 132 a/A Ratio 0.27 Hemoglobin 13.4 Carboxyhemoglobin 4.0 (0.0-6.9) % THgb Methemoglobin 0.5 L (1.4-1.5) % Potassium 4.1 (3.5-5.1) Temperature 37.0 C POC O2 Flow Rate 36 % Sodium (137-145) mmol/L Chloride (98-107) mmol/L Carbon Dioxide (22-30) mmol/L Anion Gap (5-15) MEQ/L BUN (7-17) mg/dL Creatinine (0.52-1.04) mg/dL Estimated GFR ML/MIN Glucose (74-106) mg/dL Lactic Acid 1.5 (0.4-2.0) Calcium (8.4-10.2) mg/dL Total Bilirubin (0.2-1.3) mg/dL AST (14-36) U/L ALT (0-35) U/L Alkaline Phosphatase (38-126) U/L Serum Total Protein (6.3-8.2) g/dL Albumin (3.5-5.0) g/dL Influenza Type A Ag (NEGATIVE) Influenza Type B Ag (NEGATIVE) RSV (PCR) (Negative) - Progress Progress: improved Air Movement: poor Progress Note: 01/05/19 05:41 Pt had two Duo nebs treatment, Solu Medrol 125mg Azithromycin, and Rocephin. She got Pulmicort neb as well. Pt is still SOB and wheezy. Dr holland accepted pt for admission. Pt will be admitted to [facility]. Blood Culture(s) Obtained: No Antibiotics given: Yes Will see patient in: hospital (full admit) Counseled pt/family regarding: lab results, diagnosis, rad results - Departure Time of Disposition: 05:46 Departure Disposition: In-patient Admission Clinical Impression: Respiratory failure with hypoxia Condition: Poor Critical Care Time: No Referrals: URSZULA BENNETT MD [Primary Care Provider] -
--- NOTE | 2019-01-05 09:11 | XRAY ---
Indication: Short of breath. History COPD. Comparison: October 23, 2018. AP/lateral chest remains hyperinflated and clear. Heart and mediastinal structures within normal limits for AP technique. Bony thorax intact. No new/acute findings. Impression: Stable nonacute hyperinflated chest.
[2019-01-05] MEDS: DUONEB 0.5-3 MG/3 ml Neb IH SCH ×4 (10:31→18:57)
[2019-01-05] MEDS: ENOXAPARIN SODIUM SQ SCH (11:05)
[2019-01-05] MEDS: solu-MEDROL 125 MG IV SCH ×5 (11:05→23:04)
--- NOTE | 2019-01-05 12:16 | PCM.HP ---
History of Present Illness - Chief Complaint Chief Complaint: Shortness of Breath History of Present Illness: is a 63 year old female with a history of COPD with hypoxia on home O2, and JUAN MANUEL on a CPAP. She presented via EMS secondary to progressive SOB and increase work of breathing. Pt denies F/C?S. States, she called her PCP and was placed on Keflex. She called again a couple of days later, and was told that she needs to give the ABX time to work. She presented to the ED, as she was extremely dysgenic and tired. - Review of Systems Constitutional: No Fever, No Chills Eyes: No Symptoms Ears, Nose, & Throat: No Symptoms Respiratory: Cough, Orthopnea, Short Of Breath, Wheezing Cardiac: No Chest Pain, No Edema, No Syncope Abdominal/Gastrointestinal: No Abdominal Pain, No Nausea, No Vomiting, No Diarrhea Genitourinary Symptoms: No Dysuria Musculoskeletal: No Back Pain, No Neck Pain Skin: No Rash Neurological: No Dizziness, No Focal Weakness, No Sensory Changes Psychological: No Symptoms Endocrine: No Symptoms Hematologic/Lymphatic: No Symptoms Immunological/Allergic: No Symptoms Medications & Allergies Home Medications: Home Medication List Aspirin EC 81 mg [Ecotrin 81 mg] 81 mg PO 3XW 08/31/12 [History Confirmed 01/05/19] Budesonide/Formoterol Fumarate [Symbicort 160-4.5 Mcg Inhaler] 10.2 gm IH DAILY 08/31/12 [History Confirmed 01/05/19] Combivent Inhaler 2 puff PO Q4HPRN PRN 08/31/12 [History Confirmed 01/05/19] Potassium Chloride 10 Meq Tab* [Klor Con 10 MEQ] 600 mg PO DAILY 08/31/12 [ History Confirmed 01/05/19] Torsemide 20 mg PO DAILY 08/31/12 [History Confirmed 01/05/19] Allopurinol 100 mg [Zyloprim 100 mg] 100 mg PO DAILY 10/23/18 [History Confirmed 01/05/19] Magnesium Oxide [Magnesium] 400 mg PO DAILY 10/23/18 [History Confirmed 01/05/19 ] Prednisone 10 mg [Deltasone 10 mg] 10 mg PO DAILY 10/23/18 [History Confirmed 01/05/19] PANTOPRAZOLE 40 mg Tablet [Protonix 40MG Tablet] 40 mg PO DAILY tab 10/27 [Rx Confirmed 01/05/19] Tiotropium [place] Inhaler [Spiriva 18 Mcg/Cap Inhaler] 1 ea IH QPM inh 10/27/18 [Rx Confirmed 01/05/19] Allergies/Adverse Reactions: Allergies Allergy/AdvReac Type Severity Reaction Status Date / Time modafinil [From Provigil] Allergy Severe Verified 01/05/19 11:52 codeine [Codeine] Allergy Verified 08/31/12 20:02 levofloxacin [From Levaquin] Allergy Verified 10/23/18 04:50 tramadol Allergy Verified 10/23/18 04:50 armodafinil [From Nuvigil] AdvReac Severe Verified 01/05/19 11:52 fluticasone furoate AdvReac Intermediate Verified 01/05/19 11:52 [From Breo Ellipta] sertraline [From Zoloft] AdvReac Intermediate Verified 01/05/19 11:52 vilanterol AdvReac Intermediate Verified 01/05/19 11:52 [From Breo Ellipta] ciprofloxacin [From Cipro] AdvReac Verified 01/05/19 11:52 - Past Medical History Past Medical History: Yes Neurological History: No Pertinent History ENT History: No Pertinent History Cardiac History: No Pertinent History Respiratory History: COPD, Sleep Apnea, Other Endocrine Medical History: No Pertinent History Musculoskelatal History: Arthritis GI Medical History: No Pertinent History History: No Pertinent History Pyscho-Social History: Anxiety Reproductive Disorders: No Pertinent History Comment: NARCOLEPSY. RESTLESS LEG SYNDROME - Female History Hx Last Menstrual Period: 30 yrs ago - Past Surgical History Past Surgical History: Yes Neuro Surgical History: No Pertinent History Cardiac History: Cardiac Catheterization Respiratory Surgery: No Pertinent History GI Surgical History: Appendectomy Genitourinary Surgical Hx: No Pertinent History Musculskeletal Surgical Hx: Other Female Surgical History: Hysterectomy Other Surgical History: biopsy of lump from neck - Social History Smoking Status: Current every day smoker How long have you smoked: 47 years Exposure to second hand smoke: No Alcohol: Rarely Drug Use: none - Physical Exam Vital Signs: Vital Signs - 24 hr Temp Pulse Resp BP Pulse Ox 01/05/19 10:31 90 20 93 L 01/05/19 10:20 95 01/05/19 07:20 98.7 F 103 H 27 H 132/84 92 L 01/05/19 07:00 98.7 F 103 H 27 H 132/84 92 L 01/05/19 06:50 98.7 F 103 H 27 H 132/84 92 L 01/05/19 06:00 77 18 120/85 97 01/05/19 05:47 95 01/05/19 05:00 91 H 19 108/62 95 01/05/19 04:00 89 20 109/64 95 01/05/19 03:00 89 20 134/58 97 01/05/19 02:24 91 H 18 109/57 94 L 01/05/19 00:59 100.2 F 103 H 24 109/44 91 L Oxygen-Last 24 hours O2 Percentage 4 Liters = 36% O2 Percentage 4 Liters = 36% O2 Percentage 4 Liters = 36% O2 Percentage 4 Liters = 36% O2 Percentage 4 Liters = 36% O2 Percentage 4 Liters = 36% O2 Percentage 4 Liters = 36% O2 Percentage 4 Liters = 36% O2 Percentage 4 Liters = 36% O2 Percentage 4 Liters = 36% O2 Percentage 4 Liters = 36% General Appearance: no apparent distress, alert Neurologic Exam: alert, oriented x 3, cooperative, normal mood/affect, nml cerebellar function, nml station & gait, sensation nml, No motor deficits Eye Exam: PERRL/EOMI, eyes nml inspection Ears, Nose, Throat Exam: normal ENT inspection, TMs normal, pharynx normal, moist mucous membranes Neck Exam: normal inspection, non-tender, supple, full range of motion Respiratory Exam: accessory muscle use, crackles/rales, rhonchi, wheezing, No respiratory distress Cardiovascular Exam: regular rate/rhythm, normal heart sounds, normal peripheral pulses Gastrointestinal/Abdomen Exam: soft, normal bowel sounds, No tenderness, No mass Back Exam: normal inspection, normal range of motion, No CVA tenderness, No vertebral tenderness Extremity Exam: normal inspection, normal range of motion, pelvis stable Skin Exam: normal color, warm, dry, No rash Lymphatic Exam: No adenopathy Results - Labs Lab/Micro Results: Accuchecks Date 01/05/19 Time 11:30 Accucheck Value: 153 Lab Results-Last 24 Hours 01/05/19 01/05/19 01/05/19 Range/Units 01:17 01:29 01:29 WBC 14.6 H (4.0-10.5) K/mm3 RBC 3.80 L (4.1-5.4) M/mm3 Hgb 13.1 (12.0-16.0) gm/dl Hct 39.3 (35-47) % MCV 103.4 H (78-100) fl MCH 34.4 H (26-32) pg MCHC 33.3 (32-36) g/dl RDW 13.8 (11.5-14.0) % Plt Count 351 (150-450) K/mm3 MPV 8.6 (6-9.5) fl Gran % 81.3 H (36.0-66.0) % Eos # (Auto) 0.04 (0-0.5) Absolute Lymphs (auto) 1.28 (1.0-4.6) Absolute Monos (auto) 1.37 H (0.0-1.3) Lymphocytes % 8.7 L (24.0-44.0) % Monocytes % 9.4 (0.0-12.0) % Eosinophils % 0.3 (0.00-5.0) % Basophils % 0.3 (0.0-0.4) % Absolute Granulocytes 11.90 H (1.4-6.9) Basophils # 0.04 (0-0.4) Puncture Site Pending pCO2 60 H* (35-45) mmHg pO2 50 L* (75-100) mmHg Base Excess 10.1 H (-2.0-2.0) O2 Saturation 86.4 L (94-100) g/dF ABG pH 7.40 (7.35-7.45) ABG HCO3 37.2 H* (22-28) ABG O2 Sat (Measured) 90.5 L (95-100) % Alexey Test Pending A-a Gradient 132 a/A Ratio 0.27 Hemoglobin 13.4 Carboxyhemoglobin 4.0 (0.0-6.9) % THgb Methemoglobin 0.5 L (1.4-1.5) % Potassium 4.1 4.3 (3.5-5.1) Temperature 37.0 C POC O2 Flow Rate 36 % Sodium 140 (137-145) mmol/L Chloride 99 (98-107) mmol/L Carbon Dioxide 33 H (22-30) mmol/L Anion Gap 12.1 (5-15) MEQ/L BUN 19 H (7-17) mg/dL Creatinine 0.93 (0.52-1.04) mg/dL Estimated GFR > 60.0 ML/MIN Glucose 105 (74-106) mg/dL Hemoglobin A1c (4.5-6.0) % Lactic Acid 1.5 (0.4-2.0) Calcium 10.2 (8.4-10.2) mg/dL Total Bilirubin 0.30 (0.2-1.3) mg/dL AST 18 (14-36) U/L ALT 22 (0-35) U/L Alkaline Phosphatase 148 H (38-126) U/L Serum Total Protein 7.1 (6.3-8.2) g/dL Albumin 4.1 (3.5-5.0) g/dL Influenza Type A Ag (NEGATIVE) Influenza Type B Ag (NEGATIVE) RSV (PCR) (Negative) 01/05/19 01/05/19 Range/Units 01:29 01:30 WBC (4.0-10.5) K/mm3 RBC (4.1-5.4) M/mm3 Hgb (12.0-16.0) gm/dl Hct (35-47) % MCV (78-100) fl MCH (26-32) pg MCHC (32-36) g/dl RDW (11.5-14.0) % Plt Count (150-450) K/mm3 MPV (6-9.5) fl Gran % (36.0-66.0) % Eos # (Auto) (0-0.5) Absolute Lymphs (auto) (1.0-4.6) Absolute Monos (auto) (0.0-1.3) Lymphocytes % (24.0-44.0) % Monocytes % (0.0-12.0) % Eosinophils % (0.00-5.0) % Basophils % (0.0-0.4) % Absolute Granulocytes (1.4-6.9) Basophils # (0-0.4) Puncture Site pCO2 (35-45) mmHg pO2 (75-100) mmHg Base Excess (-2.0-2.0) O2 Saturation (94-100) g/dF ABG pH (7.35-7.45) ABG HCO3 (22-28) ABG O2 Sat (Measured) (95-100) % Alexey Test A-a Gradient a/A Ratio Hemoglobin Carboxyhemoglobin (0.0-6.9) % THgb Methemoglobin (1.4-1.5) % Potassium (3.5-5.1) Temperature C POC O2 Flow Rate % Sodium (137-145) mmol/L Chloride (98-107) mmol/L Carbon Dioxide (22-30) mmol/L Anion Gap (5-15) MEQ/L BUN (7-17) mg/dL Creatinine (0.52-1.04) mg/dL Estimated GFR ML/MIN Glucose (74-106) mg/dL Hemoglobin A1c 5.77 (4.5-6.0) % Lactic Acid (0.4-2.0) Calcium (8.4-10.2) mg/dL Total Bilirubin (0.2-1.3) mg/dL AST (14-36) U/L ALT (0-35) U/L Alkaline Phosphatase (38-126) U/L Serum Total Protein (6.3-8.2) g/dL Albumin (3.5-5.0) g/dL Influenza Type A Ag NEGATIVE (NEGATIVE) Influenza Type B Ag NEGATIVE (NEGATIVE) RSV (PCR) NEGATIVE (Negative) Accuchecks Date 01/05/19 Time 11:30 Accucheck Value: 153 - Radiology Impressions Radiology Exams & Impressions: Radiology Procedures Category Date Time Status CHEST 2 VIEWS (PA AND LAT) Stat Exams 01/05/19 01:02 Completed - Other Procedures and Tests Respiratory Therapy 01/05/19 05:47 Oxygen Nasal Cannula 4 lpm 01/05/19 07:00 Peak Expiratory Flow Rate DAILY 01/05/19 09:21 Smoking Cessation Education ONCE 01/06/19 07:00 Respiratory Therapy Assessment DAILY Assessment/Plan (1) Respiratory failure with hypoxia Current Visit: Yes Status: Acute Qualifiers: Chronicity: acute on chronic Qualified Code(s): J96.21 - Acute and chronic respiratory failure with hypoxia Assessment & Plan: Last Vital Signs Temp 98.7 F 01/05/19 07:20 Pulse 90 01/05/19 10:31 Resp 20 01/05/19 10:31 BP 132/84 01/05/19 07:20 Pulse Ox 93 L 01/05/19 10:31 Allergies modafinil [From Provigil] Allergy (Severe, Verified 01/05/19 11:52) suicidal tendencies codeine [Codeine] Allergy (Verified 08/31/12 20:02) levofloxacin [From Levaquin] Allergy (Verified 10/23/18 04:50) tramadol Allergy (Verified 10/23/18 04:50) armodafinil [From Nuvigil] Adverse Reaction (Severe, Verified 01/05/19 11:52) suicidal tendencies fluticasone furoate [From Breo Ellipta] Adverse Reaction (Intermediate, Verified 01/05/19 11:52) full body tremors sertraline [From Zoloft] Adverse Reaction (Intermediate, Verified 01/05/19 11:52 ) full body tremors vilanterol [From Breo Ellipta] Adverse Reaction (Intermediate, Verified 11:52) full body tremors ciprofloxacin [From Cipro] Adverse Reaction (Verified 01/05/19 11:52) Leg pain Active Medications Albuterol/Ipratropium (Duoneb 0.5-3 Mg/3 Ml Neb) 3 ml IH Q4HRT [facility] Stop: 02/04/19 06:59 Last Admin: 01/05/19 10:31 Dose: 3 ml Enoxaparin Sodium (Enoxaparin Sodium) 40 mg SQ DAILY [facility] Stop: 02/04/19 09:59 Last Admin: 01/05/19 11:05 Dose: 40 mg Azithromycin (Zithromax 500 Mg/ 250 Ml Nacl Premix) 500 mg in 250 mls @ 250 mls /hr IV QPM [facility] Stop: 02/04/19 21:59 Ceftriaxone Sodium/Dextrose (Rocephin 1 Gm-D5w 50 Ml Bag) 1 g in 50 mls @ 100 mls/hr IV QPM [facility] Stop: 02/04/19 21:59 Insulin Aspart (Novolog Insulin) 0 unit SQ UD PRN PRN Reason: HYPERGLYCEMIA Stop: 02/04/19 05:46 Methylprednisolone Sodium Succinate (Solu-Medrol 125 Mg) 80 mg IV Q6HT [facility] Stop: 02/04/19 05:59 Last Admin: 01/05/19 11:05 Dose: 80 mg Intake & Output 01/05/19 01/06/19 11:59 11:59 Intake Total 480 Balance 480 Weight 94.3 kg Orders 01/05/19 07:00 Peak Expiratory Flow Rate DAILY Pulse Oximetry ROUTINE 01/05/19 09:21 Steward Dishwasher/Discharge Plan ROUTINE Smoking Cessation Education ONCE 01/06/19 07:00 Respiratory Therapy Assessment DAILY Lab Tests 01/05/19 01/05/19 01/05/19 01:17 01:29 01:29 WBC 14.6 H RBC 3.80 L Hgb 13.1 Hct 39.3 MCV 103.4 H MCH 34.4 H MCHC 33.3 RDW 13.8 Plt Count 351 MPV 8.6 Gran % 81.3 H Eos # (Auto) 0.04 Absolute Lymphs (auto) 1.28 Absolute Monos (auto) 1.37 H Lymphocytes % 8.7 L Monocytes % 9.4 Eosinophils % 0.3 Basophils % 0.3 Absolute Granulocytes 11.90 H Basophils # 0.04 Puncture Site Pending pCO2 60 H* pO2 50 L* Base Excess 10.1 H O2 Saturation 86.4 L ABG pH 7.40 ABG HCO3 37.2 H* ABG O2 Sat (Measured) 90.5 L Alexey Test Pending A-a Gradient 132 a/A Ratio 0.27 Hemoglobin 13.4 Carboxyhemoglobin 4.0 Methemoglobin 0.5 L Potassium 4.1 4.3 Temperature 37.0 POC O2 Flow Rate 36 Sodium 140 Chloride 99 Carbon Dioxide 33 H Anion Gap 12.1 BUN 19 H Creatinine 0.93 Estimated GFR > 60.0 Glucose 105 Hemoglobin A1c Lactic Acid 1.5 Calcium 10.2 Total Bilirubin 0.30 AST 18 ALT 22 Alkaline Phosphatase 148 H Serum Total Protein 7.1 Albumin 4.1 Influenza Type A Ag Influenza Type B Ag RSV (PCR) 01/05/19 01/05/19 01:29 01:30 WBC RBC Hgb Hct MCV MCH MCHC RDW Plt Count MPV Gran % Eos # (Auto) Absolute Lymphs (auto) Absolute Monos (auto) Lymphocytes % Monocytes % Eosinophils % Basophils % Absolute Granulocytes Basophils # Puncture Site pCO2 pO2 Base Excess O2 Saturation ABG pH ABG HCO3 ABG O2 Sat (Measured) Alexey Test A-a Gradient a/A Ratio Hemoglobin Carboxyhemoglobin Methemoglobin Potassium Temperature POC O2 Flow Rate Sodium Chloride Carbon Dioxide Anion Gap BUN Creatinine Estimated GFR Glucose Hemoglobin A1c 5.77 Lactic Acid Calcium Total Bilirubin AST ALT Alkaline Phosphatase Serum Total Protein Albumin Influenza Type A Ag NEGATIVE Influenza Type B Ag NEGATIVE RSV (PCR) NEGATIVE Code(s): J96.91 - RESPIRATORY FAILURE, UNSPECIFIED WITH HYPOXIA (2) Acute bronchopneumonia Current Visit: Yes Status: Acute Onset Date: ~10/24/18 Code(s): J18.0 - BRONCHOPNEUMONIA, UNSPECIFIED ORGANISM (3) Respiratory failure, [id number] Current Visit: No Status: Acute Onset Date: ~10/24/18 Code(s): J96.20 - ACUTE AND CHR RESP FAILURE, UNSP W HYPOXIA OR HYPERCAPNIA (4) COPD exacerbation Current Visit: No Status: Resolved Onset Date: ~10/23/18 Code(s): J44.1 - CHRONIC OBSTRUCTIVE PULMONARY DISEASE W (ACUTE) EXACERBATION
[2019-01-05] MEDS ORDERED: COMBIVENT PO PRN (13:37)
[2019-01-05] MEDS ORDERED: MEDICATION INTERVENTION MC SCH (14:00)
[2019-01-05] MEDS: Klor Con 10 MEQ PO SCH (14:38)
[2019-01-05] MEDS: ZYLOPRIM 100 MG PO SCH (14:38)
[2019-01-05] MEDS: DEMADEX 20 MG PO SCH (14:39)
[2019-01-05] MEDS: MAG-OX 400 PO SCH (14:39)
[2019-01-05] MEDS: ECOTRIN 81 MG PO SCH (14:39)
[2019-01-05] MEDS: Protonix 40MG Tablet PO SCH (14:39)
[2019-01-05] MEDS ORDERED: Spiriva 18 Mcg/Cap Inhaler IH ONE (15:14)
[2019-01-05] MEDS: Advair Hfa 230/21 Mcg COMMON CANISTER IH SCH ×2 (15:17→18:58)
[2019-01-05] MEDS: PROVENTIL 2.5 MG/3 ML NEB IH PRN (15:49)
[2019-01-05] MEDS ORDERED: xanAX 0.25 MG PO PRN (16:26)
[2019-01-05] MEDS: NovoLOG Insulin SQ PRN ×2 (18:00→21:09)
[2019-01-05] MEDS: Spiriva 18 Mcg/Cap Inhaler IH SCH (18:59)
[2019-01-05] MEDS: ROCEPHIN 1 Gm-D5w 50 ml Bag** 1 G/50 ML IVPB IV SCH (21:08)
[2019-01-05] MEDS ORDERED: zyPREXA 5MG TABLET PO SCH (22:00)
[2019-01-05] MEDS: Zithromax 500 MG/ 250 ML NaCl Premix 500 MG/250 ML IVPB IV SCH (22:26)
[2019-01-05] MEDS ORDERED: xanAX 0.5 MG PO ONE (23:00)
[2019-01-06] MEDS: DUONEB 0.5-3 MG/3 ml Neb IH SCH ×7 (00:36→22:47)
[2019-01-06 03:13] LABS: A-aADO2 217; ABG HEMOGLOBIN 14.1; ABG POTASSIUM 3.9 (3.5-5.1); ARTERIAL BLD GAS O2 SATURATION 92.1 % (95-100); ARTERIAL BLOOD GAS BASE EXCESS 6.9 (-2.0-2.0); ARTERIAL BLOOD GAS FIO2 50 %; ARTERIAL BLOOD GAS PCO2 65 mmHg (35-45); ARTERIAL BLOOD GAS PO2 58 mmHg (75-100); ARTERIAL BLOOD GAS pH 7.34 (7.35-7.45); CARBOXYHEMOGLOBIN 1.4 % THgb (0.0-6.9); HCO3- 35.1 (22-28); HGB O2 SAT 90.2 g/dF (94-100); Methhemoglobin 0.7 % (1.4-1.5); paO2 pAO1 0.21
[2019-01-06 03:14] LABS: ABG SITE RIGHT BRACHIAL
[2019-01-06] MEDS ORDERED: Ativan 2 MG/1 ML VIAL IV PRN (03:24)
[2019-01-06] MEDS: solu-MEDROL 125 MG IV SCH ×4 (05:55→23:27)
[2019-01-06 06:00] LABS: Hematocrit 43.7 % (35-47); Hemoglobin 13.9 gm/dl (12.0-16.0); Mean Corpuscular Hemoglobin 33.4 pg (26-32); Mean Corpuscular Hgb Concent. 31.8 g/dl (32-36); Mean Platelet Volume 8.8 fl (6-9.5); Platelet Count 374 K/mm3 (150-450); Red Blood Count 4.16 M/mm3 (4.1-5.4); Red Cell Distribution Width 13.7 % (11.5-14.0); White Blood Count 20.1 K/mm3 (4.0-10.5)
[2019-01-06 06:22] LABS: ANION GAP 14.9 MEQ/L (5-15); Calcium 9.9 mg/dL (8.4-10.2); Creatinine 1 1.07 mg/dL (0.52-1.04); MAGNESIUM 2.2 mg/dL (1.6-2.3); Potassium 4.2 mmol/L (3.5-5.1)
[2019-01-06 07:25] LABS: A-aADO2 177; ABG HEMOGLOBIN 14.2; ABG POTASSIUM 3.9 (3.5-5.1); ARTERIAL BLD GAS O2 SATURATION 97.5 % (95-100); ARTERIAL BLOOD GAS BASE EXCESS 6.6 (-2.0-2.0); ARTERIAL BLOOD GAS FIO2 50 %; ARTERIAL BLOOD GAS PO2 88 mmHg (75-100); ARTERIAL BLOOD GAS VENT MODE BiPAP; CARBOXYHEMOGLOBIN 1.8 % THgb (0.0-6.9); HCO3- 35.9 (22-28); HGB O2 SAT 95.3 g/dF (94-100); Methhemoglobin 0.6 % (1.4-1.5); paO2 pAO1 0.33
[2019-01-06 07:26] LABS: ABG SITE RIGHT RADIAL; ALLEN TEST OK? YES; ARTERIAL BLOOD GAS PCO2 73 mmHg (35-45)
[2019-01-06] MEDS: PROVENTIL 2.5 MG/3 ML NEB IH PRN (07:44)
[2019-01-06] MEDS ORDERED: xanAX 0.5 MG PO PRN (08:00)
--- NOTE | 2019-01-06 08:38 | XRAY ---
Indication: Short of breath. Comparison: One day earlier. Portable chest remains hyperinflated and clear. Heart and mediastinal structures within normal limits. No new/acute findings.
--- NOTE | 2019-01-06 09:30 | CONS ---
CONSULT DATE: 01/05/2019 HISTORY: Maria Luz Gregory is a 63 year-old woman with advanced chronic obstructive pulmonary disease, chronic bronchitis and chronic respiratory failure, well known to me, who was last seen two weeks ago in office when she was at her baseline and was doing well. The patient reports that she started experiencing cough, shortness of breath, wheezing leading to an emergency room visit and hospitalization. The family started a remodeling job in the home and she suspects that she was exposed to dust from that leading to worsening symptoms. She is currently being treated with antibiotics, steroids and reports some improvement. The patient has cough which has been productive of clear expectoration. She denies hemoptysis or any fever. PAST MEDICAL HISTORY: Positive for history of chronic obstructive pulmonary disease, chronic bronchitis, anxiety, depression. PAST SURGICAL HISTORY: No recent surgery. PERSONAL AND SOCIAL HISTORY: The patient is a former smoker. MEDICATIONS: Medications reviewed. ALLERGIES: ALLERGIES NOTED. PHYSICAL EXAMINATION: A middle aged woman sitting in a chair mildly short of breath. Vital signs noted. HEENT: Normocephalic. Oral exam is limited. Oropharynx is small. NECK: Supple. CVS: First and second heart sounds are normal, regular, rhythmic. RESPIRATORY: Shows diminished breath sounds. Bilateral fairly diffuse rhonchi are heard. ABDOMEN: Soft. EXTREMITIES: No edema noted. LABORATORY DATA AND TESTS: White blood cell count 14.6, hemoglobin 13.1, hematocrit 39, PLT 351,000. Hemoglobin A1C is 5.7. The pH 7.40, pCO2 60 and pO2 50. Sodium 140, potassium 4.3, chloride 99, bicarb 33, glucose 105, BUN 19, creatinine 0.9. Influenza titers were negative. Chest x-ray showed no acute infiltrate. ASSESSMENT: This is a 63 year old woman admitted with: 1) Chronic obstructive pulmonary disease with exacerbation. 2) Acute bronchitis. 3) Chronic hypoxic respiratory failure. 4) Anxiety/depression. RECOMMENDATIONS: The patient to continue current therapy, continue antibiotic, steroids, bronchodilators, deep venous thrombosis and GI prophylaxis. The patient discontinued on Symbicort. Will follow up in outpatient setting in two weeks upon discharge.
[2019-01-06] MEDS: Protonix 40MG Tablet PO SCH ×2 (09:56→21:26)
[2019-01-06] MEDS: ENOXAPARIN SODIUM SQ SCH (09:56)
[2019-01-06] MEDS: DEMADEX 20 MG PO SCH (09:56)
[2019-01-06] MEDS: MAG-OX 400 PO SCH (09:56)
[2019-01-06] MEDS: Klor Con 10 MEQ PO SCH (09:56)
[2019-01-06] MEDS: ZYLOPRIM 100 MG PO SCH (09:56)
[2019-01-06] MEDS ORDERED: TORSEMIDE 20 MG PO SCH (10:00)
[2019-01-06] MEDS ORDERED: DELTASONE 10 MG PO SCH (10:00)
[2019-01-06] MEDS ORDERED: NON-FORMULARY ITEM (Budesonide/Formoterol Fumarate [Symbicort 160-4.5 Mcg Inhaler] 10.2 GM IH SCH (10:00)
[2019-01-06] MEDS: Advair Hfa 230/21 Mcg COMMON CANISTER IH SCH ×2 (11:02→22:48)
[2019-01-06 12:28] LABS: INFLUENZA A NEGATIVE (NEGATIVE); INFLUENZA B NEGATIVE (NEGATIVE)
[2019-01-06 12:29] LABS: RESPIRATORY SYNCTIAL VIRUS POSITIVE (Negative)
--- NOTE | 2019-01-06 13:24 | PCM.NOTE ---
Date and Time: 01/06/19 1322 Subjective Assessment: still shortness of breath, - Review of Systems Constitutional: No Fever, No Chills Eyes: No Symptoms Ears, Nose, & Throat: No Symptoms Respiratory: Cough, Orthopnea, Short Of Breath, Wheezing Cardiac: No Chest Pain, No Edema, No Syncope Abdominal/Gastrointestinal: No Abdominal Pain, No Nausea, No Vomiting, No Diarrhea Genitourinary Symptoms: No Dysuria Musculoskeletal: No Back Pain, No Neck Pain Skin: No Rash Neurological: No Dizziness, No Focal Weakness, No Sensory Changes Psychological: No Symptoms Endocrine: No Symptoms Hematologic/Lymphatic: No Symptoms Immunological/Allergic: No Symptoms Objective Exam General Appearance: no apparent distress, alert Neurologic Exam: alert, oriented x 3, cooperative, normal mood/affect, nml cerebellar function, sensation nml, No motor deficits Skin Exam: normal color, warm, dry Eye Exam: PERRL, EOMI, eyes nml inspection Ears, Nose, Throat Exam: normal ENT inspection, pharynx normal, moist mucous membranes Neck Exam: normal inspection, non-tender, supple, full range of motion Respiratory Exam: diminished breath sounds, prolonged expirations, rhonchi, wheezing, No respiratory distress Cardiovascular Exam: regular rate/rhythm, normal heart sounds Gastrointestinal/Abdomen Exam: soft, No tenderness, No mass Extremity Exam: normal inspection, normal range of motion Back Exam: normal inspection, normal range of motion, No CVA tenderness, No vertebral tenderness Pelvic Exam: deferred Rectal Exam: deferred OBJECTIVE DATA Vital Signs: Vital Signs - 24 hr Temp Pulse Resp BP Pulse Ox 01/06/19 12:00 98.1 F 106 H 28 H 168/72 99 01/06/19 11:56 91 H 23 97 01/06/19 08:43 90 20 98 01/06/19 08:36 101 H 29 H 98 01/06/19 08:00 20 01/06/19 07:05 97.8 F 101 H 29 H 142/70 98 01/06/19 04:00 19 01/06/19 03:56 97.9 F 88 19 146/68 94 L 01/06/19 03:51 83 26 H 96 01/06/19 00:36 94 H 22 85 L 01/06/19 00:00 19 01/05/19 23:49 97.5 F 97 H 22 154/63 92 L 01/05/19 19:59 97.4 F 92 H 18 125/59 96 01/05/19 18:57 92 H 21 96 01/05/19 16:00 98.2 F 98 H 20 150/67 89 L 01/05/19 15:49 100 H 28 H 84 L 01/05/19 15:02 98 H 24 95 Oxygen-Last 24 hours O2 Percentage 50% O2 Percentage 5 Liters = 40% Oxygen Flowrate (L/min)-RT 10 Oxygen Flowrate (L/min)-RT 10 Pain Assessment - Last Documented Pain Scale Used 0-10 Pain Scale Intake and Output: Intake & Output 01/04/19 01/05/19 01/06/19 01/07/19 11:59 11:59 11:59 11:59 Intake Total 480 1796 Output Total 200 700 Balance 280 1096 Weight 94.3 kg 97 kg Lab Results: Accuchecks Date 01/06/19 Date 01/06/19 Date 01/05/19 Time 11:30 Time 05:00 Time 16:30 Accucheck Value: 133 Accucheck Value: 154 Accucheck Value: 205 Lab Results-Last 24 Hours 01/06/19 01/06/19 01/06/19 Range/Units 03:07 05:35 05:35 WBC 20.1 H (4.0-10.5) K/mm3 RBC 4.16 (4.1-5.4) M/mm3 Hgb 13.9 (12.0-16.0) gm/dl Hct 43.7 (35-47) % MCV 105.0 H (78-100) fl MCH 33.4 H (26-32) pg MCHC 31.8 L (32-36) g/dl RDW 13.7 (11.5-14.0) % Plt Count 374 (150-450) K/mm3 MPV 8.8 (6-9.5) fl Puncture Site RIGHT BRACHIAL pCO2 65 H* (35-45) mmHg pO2 58 L (75-100) mmHg Base Excess 6.9 H (-2.0-2.0) O2 Saturation 90.2 L (94-100) g/dF ABG pH 7.34 L (7.35-7.45) ABG HCO3 35.1 H* (22-28) ABG O2 Sat (Measured) 92.1 L (95-100) % Alexey Test NOT APPLICABLE A-a Gradient 217 a/A Ratio 0.21 Hemoglobin 14.1 Carboxyhemoglobin 1.4 (0.0-6.9) % THgb Methemoglobin 0.7 L (1.4-1.5) % Potassium 3.9 4.2 (3.5-5.1) Temperature 37.0 C POC O2 Flow Rate 50 % Vent Mode Inspiratory BiPAP Expiratory BiPAP Sodium 141 (137-145) mmol/L Chloride 95 L (98-107) mmol/L Carbon Dioxide 35 H (22-30) mmol/L Anion Gap 14.9 (5-15) MEQ/L BUN 29 H (7-17) mg/dL Creatinine 1.07 H (0.52-1.04) mg/dL Estimated GFR 54.9 ML/MIN Glucose 131 H (74-106) mg/dL Calcium 9.9 (8.4-10.2) mg/dL Magnesium 2.2 (1.6-2.3) mg/dL Influenza Type A Ag (NEGATIVE) Influenza Type B Ag (NEGATIVE) RSV (PCR) (Negative) 01/06/19 01/06/19 Range/Units 07:20 11:46 WBC (4.0-10.5) K/mm3 RBC (4.1-5.4) M/mm3 Hgb (12.0-16.0) gm/dl Hct (35-47) % MCV (78-100) fl MCH (26-32) pg MCHC (32-36) g/dl RDW (11.5-14.0) % Plt Count (150-450) K/mm3 MPV (6-9.5) fl Puncture Site RIGHT RADIAL pCO2 73 H* (35-45) mmHg pO2 88 (75-100) mmHg Base Excess 6.6 H (-2.0-2.0) O2 Saturation 95.3 (94-100) g/dF ABG pH 7.30 L (7.35-7.45) ABG HCO3 35.9 H* (22-28) ABG O2 Sat (Measured) 97.5 (95-100) % Alexey Test YES A-a Gradient 177 a/A Ratio 0.33 Hemoglobin 14.2 Carboxyhemoglobin 1.8 (0.0-6.9) % THgb Methemoglobin 0.6 L (1.4-1.5) % Potassium 3.9 (3.5-5.1) Temperature 37.0 C POC O2 Flow Rate 50 % Vent Mode BiPAP Inspiratory BiPAP 14 Expiratory BiPAP 8 Sodium (137-145) mmol/L Chloride (98-107) mmol/L Carbon Dioxide (22-30) mmol/L Anion Gap (5-15) MEQ/L BUN (7-17) mg/dL Creatinine (0.52-1.04) mg/dL Estimated GFR ML/MIN Glucose (74-106) mg/dL Calcium (8.4-10.2) mg/dL Magnesium (1.6-2.3) mg/dL Influenza Type A Ag NEGATIVE (NEGATIVE) Influenza Type B Ag NEGATIVE (NEGATIVE) RSV (PCR) POSITIVE (Negative) Radiology Exams: Radiology Procedures Category Date Time Status CHEST 1 VIEW (PORTABLE) Stat Exams 01/06/19 07:50 Completed CHEST 2 VIEWS (PA AND LAT) Stat Exams 01/05/19 01:02 Completed Multi-Disciplinary Progress Notes: Multi-Disciplinary Progress Notes 01/06/19 03:56 Respiratory Note by Delia Aldana 01/06/19 03:00 PT WAS HAVING LABORED BREATHING AND A LOW SPO2, SO AN ABG WAS DRAWN TO CHECK PT'S RESPIRATORY AND VENTILATORY STATUS. DR. BENNETT WAS CALLED WITH THE RESULTS AND AGREED THAT THE PT NEEDED BIPAP. HE ASKED THAT WE CALL PULMONOLOGY. I THEN CALLED DR. ANDRÉS NAVAS, AND HE GAVE ORDERS OF BIPAP AT PRESSURES OF 14/8 WITH A BACKUP RATE OF 20 AND ABGS TO BE REDRAWN AT 07:00. Initialized on 01/06/19 03:56 - END OF NOTE Assessment/Plan (1) Pneumonia, respiratory syncytial virus Current Visit: Yes Status: Acute Assessment & Plan: Last Vital Signs Temp 98.1 F 01/06/19 12:00 Pulse 106 H 01/06/19 12:00 Resp 28 H 01/06/19 12:00 BP 168/72 01/06/19 12:00 Pulse Ox 99 01/06/19 12:00 Allergies modafinil [From Provigil] Allergy (Severe, Verified 01/05/19 11:52) suicidal tendencies codeine [Codeine] Allergy (Verified 08/31/12 20:02) levofloxacin [From Levaquin] Allergy (Verified 10/23/18 04:50) tramadol Allergy (Verified 10/23/18 04:50) armodafinil [From Nuvigil] Adverse Reaction (Severe, Verified 01/05/19 11:52) suicidal tendencies fluticasone furoate [From Breo Ellipta] Adverse Reaction (Intermediate, Verified 01/05/19 11:52) full body tremors sertraline [From Zoloft] Adverse Reaction (Intermediate, Verified 01/05/19 11:52 ) full body tremors vilanterol [From Breo Ellipta] Adverse Reaction (Intermediate, Verified 11:52) full body tremors ciprofloxacin [From Cipro] Adverse Reaction (Verified 01/05/19 11:52) Leg pain Active Medications Albuterol Sulfate (Proventil 2.5 Mg/3 Ml Neb) 2.5 mg IH PRN PRN PRN Reason: SHORTNESS OF BREATH Stop: 02/04/19 15:46 Last Admin: 01/06/19 07:44 Dose: 2.5 mg Albuterol/Ipratropium (Duoneb 0.5-3 Mg/3 Ml Neb) 3 ml IH Q4HRT [facility] Stop: 02/04/19 06:59 Last Admin: 01/06/19 10:38 Dose: 3 ml Allopurinol (Zyloprim 100 Mg) 100 mg PO HS [facility] Stop: 02/06/19 21:59 Aspirin (Ecotrin 81 Mg) 81 mg PO MoWeFr [facility] Stop: 02/04/19 13:59 Last Admin: 01/05/19 14:39 Dose: 81 mg Enoxaparin Sodium (Enoxaparin Sodium) 40 mg SQ DAILY [facility] Stop: 02/04/19 09:59 Last Admin: 01/06/19 09:56 Dose: 40 mg Azithromycin (Zithromax 500 Mg/ 250 Ml Nacl Premix) 500 mg in 250 mls @ 250 mls /hr IV QPM [facility] Stop: 02/04/19 21:59 Last Admin: 01/05/19 22:26 Dose: 250 mls/hr Ceftriaxone Sodium/Dextrose (Rocephin 1 Gm-D5w 50 Ml Bag) 1 g in 50 mls @ 100 mls/hr IV QPM [facility] Stop: 02/04/19 21:59 Last Admin: 01/05/19 21:08 Dose: 100 mls/hr Insulin Aspart (Novolog Insulin) 0 unit SQ UD PRN PRN Reason: HYPERGLYCEMIA Stop: 02/04/19 05:46 Last Admin: 01/05/19 21:09 Dose: 3 unit Lorazepam (Ativan 2 Mg/1 Ml Vial) 1 mg IV Q6H PRN PRN PRN Reason: ANXIETY Stop: 02/05/19 03:23 Last Admin: 01/06/19 07:58 Dose: 1 mg Magnesium Oxide (Mag-Ox 400) 400 mg PO DAILY [facility] Stop: 02/04/19 13:59 Last Admin: 01/06/19 09:56 Dose: 400 mg Methylprednisolone Sodium Succinate (Solu-Medrol 125 Mg) 80 mg IV Q6HT [facility] Stop: 02/04/19 05:59 Last Admin: 01/06/19 12:07 Dose: 80 mg Pantoprazole Sodium (Protonix 40mg Tablet) 40 mg PO HS [facility] Stop: 02/05/19 21:59 Potassium Chloride (Klor Con 10 Meq) 10 meq PO DAILY [facility] Stop: 02/04/19 13:59 Last Admin: 01/06/19 09:56 Dose: 10 meq Fluticasone/Salmeterol (Advair Hfa 230/21 Mcg Common Canister*) 2 puff IH BIDRT [facility] Stop: 02/04/19 18:59 Last Admin: 01/06/19 11:02 Dose: 2 puff Tiotropium Quinlan (Spiriva 18 Mcg/Cap Inhaler) 1 ea IH QPM [facility] Stop: 02/04/19 21:59 Last Admin: 01/05/19 18:59 Dose: 1 ea Torsemide (Demadex 20 Mg) 20 mg PO DAILY [facility] Stop: 02/04/19 13:59 Last Admin: 01/06/19 09:56 Dose: 20 mg Intake & Output 01/06/19 01/07/19 11:59 11:59 Intake Total 1796 Output Total 700 Balance 1096 Weight 97 kg Orders 01/05/19 13:26 Consult Pulmonology ROUTINE 01/05/19 14:00 Aspirin EC 81 mg [Ecotrin 81 mg] 81 mg PO MoWeFr Magnesium Oxide 400 mg [Mag-Ox 400] 400 mg PO DAILY Potassium Chloride 10 Meq Tab* [Klor Con 10 MEQ] 10 meq PO DAILY Torsemide 20 mg [Demadex 20 mg] 20 mg PO DAILY 01/05/19 15:47 Albuterol 2.5 mg/3 ml Neb [Proventil 2.5 mg/3 ml Neb] 2.5 mg IH PRN PRN 01/05/19 19:00 Fluticasone/Salmeterol 230/21 [Advair Hfa 230/21 Mcg COMMON CANISTER*] 2 puff IH BIDRT 01/05/19 21:59 BiPap/CPAP ROUTINE 01/05/19 22:00 Tiotropium Quinlan Inhaler [Spiriva 18 Mcg/Cap Inhaler] 1 ea IH QPM 01/06/19 03:24 Lorazepam 2 mg/1 ml [Ativan 2 MG/1 ML VIAL] 1 mg IV Q6H PRN PRN 01/06/19 07:00 Respiratory Therapy Assessment DAILY 01/06/19 11:52 Oxygen High Flow per RT 50% 01/06/19 22:00 PANTOPRAZOLE 40 mg Tablet [Protonix 40MG Tablet] 40 mg PO HS 01/06/19 Breakfast Regular Diet 01/07/19 22:00 Allopurinol 100 mg [Zyloprim 100 mg] 100 mg PO HS Lab Tests 01/06/19 01/06/19 01/06/19 03:07 05:35 05:35 WBC 20.1 H RBC 4.16 Hgb 13.9 Hct 43.7 MCV 105.0 H MCH 33.4 H MCHC 31.8 L RDW 13.7 Plt Count 374 MPV 8.8 Puncture Site RIGHT BRACHIAL pCO2 65 H* pO2 58 L Base Excess 6.9 H O2 Saturation 90.2 L ABG pH 7.34 L ABG HCO3 35.1 H* ABG O2 Sat (Measured) 92.1 L Alexey Test NOT APPLICABLE A-a Gradient 217 a/A Ratio 0.21 Hemoglobin 14.1 Carboxyhemoglobin 1.4 Methemoglobin 0.7 L Potassium 3.9 4.2 Temperature 37.0 POC O2 Flow Rate 50 Vent Mode Inspiratory BiPAP Expiratory BiPAP Sodium 141 Chloride 95 L Carbon Dioxide 35 H Anion Gap 14.9 BUN 29 H Creatinine 1.07 H Estimated GFR 54.9 Glucose 131 H Calcium 9.9 Magnesium 2.2 Influenza Type A Ag Influenza Type B Ag RSV (PCR) 01/06/19 01/06/19 07:20 11:46 WBC RBC Hgb Hct MCV MCH MCHC RDW Plt Count MPV Puncture Site RIGHT RADIAL pCO2 73 H* pO2 88 Base Excess 6.6 H O2 Saturation 95.3 ABG pH 7.30 L ABG HCO3 35.9 H* ABG O2 Sat (Measured) 97.5 Alexey Test YES A-a Gradient 177 a/A Ratio 0.33 Hemoglobin 14.2 Carboxyhemoglobin 1.8 Methemoglobin 0.6 L Potassium 3.9 Temperature 37.0 POC O2 Flow Rate 50 Vent Mode BiPAP Inspiratory BiPAP 14 Expiratory BiPAP 8 Sodium Chloride Carbon Dioxide Anion Gap BUN Creatinine Estimated GFR Glucose Calcium Magnesium Influenza Type A Ag NEGATIVE Influenza Type B Ag NEGATIVE RSV (PCR) POSITIVE Code(s): J12.1 - RESPIRATORY SYNCYTIAL VIRUS PNEUMONIA (2) Respiratory failure with hypoxia Current Visit: Yes Status: Acute Qualifiers: Chronicity: acute on chronic Qualified Code(s): J96.21 - Acute and chronic respiratory failure with hypoxia Code(s): J96.91 - RESPIRATORY FAILURE, UNSPECIFIED WITH HYPOXIA (3) Acute bronchopneumonia Current Visit: Yes Status: Acute Onset Date: ~10/24/18 Code(s): J18.0 - BRONCHOPNEUMONIA, UNSPECIFIED ORGANISM (4) Respiratory failure, [id number] Current Visit: No Status: Acute Onset Date: ~10/24/18 Code(s): J96.20 - ACUTE AND CHR RESP FAILURE, UNSP W HYPOXIA OR HYPERCAPNIA (5) COPD exacerbation Current Visit: No Status: Resolved Onset Date: ~10/23/18 Code(s): J44.1 - CHRONIC OBSTRUCTIVE PULMONARY DISEASE W (ACUTE) EXACERBATION
[2019-01-06] MEDS: Ativan 2 MG/1 ML VIAL IV PRN ×2 (19:24→23:27)
[2019-01-06] MEDS: ROCEPHIN 1 Gm-D5w 50 ml Bag** 1 G/50 ML IVPB IV SCH (21:26)
[2019-01-06] MEDS: Zithromax 500 MG/ 250 ML NaCl Premix 500 MG/250 ML IVPB IV SCH (22:01)
[2019-01-06] MEDS: Spiriva 18 Mcg/Cap Inhaler IH SCH (22:48)
[2019-01-06] MEDS ORDERED: xanAX 0.5 MG PO ONE (23:00)
[2019-01-07] MEDS: DUONEB 0.5-3 MG/3 ml Neb IH SCH ×6 (03:21→23:30)
[2019-01-07] MEDS: solu-MEDROL 125 MG IV SCH ×4 (05:33→23:52)
[2019-01-07] MEDS: TYLENOL 325 MG PO PRN ×2 (06:24→21:07)
[2019-01-07] MEDS: Ativan 2 MG/1 ML VIAL IV PRN ×4 (06:32→18:00)
[2019-01-07] MEDS ORDERED: ADVAIR 250-50 DISKUS 14 DOSE IH SCH (08:00)
[2019-01-07] MEDS: ENOXAPARIN SODIUM SQ SCH (09:07)
[2019-01-07] MEDS: DEMADEX 20 MG PO SCH (09:08)
[2019-01-07] MEDS: Klor Con 10 MEQ PO SCH (09:08)
[2019-01-07] MEDS: MAG-OX 400 PO SCH (09:10)
[2019-01-07] MEDS: PROVENTIL 2.5 MG/3 ML NEB IH PRN (09:44)
[2019-01-07] MEDS ORDERED: Zofran 4 MG/2 ML VIAL IV PRN (13:12)
--- NOTE | 2019-01-07 13:17 | PCM.NOTE ---
Date and Time: 01/07/19 1316 Subjective Assessment: doing ok - Review of Systems Constitutional: No Fever, No Chills Eyes: No Symptoms Ears, Nose, & Throat: No Symptoms Respiratory: Orthopnea, Short Of Breath, Wheezing, No Cough Cardiac: No Chest Pain, No Edema, No Syncope Abdominal/Gastrointestinal: No Abdominal Pain, No Nausea, No Vomiting, No Diarrhea Genitourinary Symptoms: No Dysuria Musculoskeletal: No Back Pain, No Neck Pain Skin: No Rash Neurological: No Dizziness, No Focal Weakness, No Sensory Changes Psychological: No Symptoms Endocrine: No Symptoms Hematologic/Lymphatic: No Symptoms Immunological/Allergic: No Symptoms Objective Exam General Appearance: no apparent distress, alert Neurologic Exam: alert, oriented x 3, cooperative, normal mood/affect, nml cerebellar function, sensation nml, No motor deficits Skin Exam: normal color, warm, dry Eye Exam: PERRL, EOMI, eyes nml inspection Ears, Nose, Throat Exam: normal ENT inspection, pharynx normal, moist mucous membranes Neck Exam: normal inspection, non-tender, supple, full range of motion Respiratory Exam: normal breath sounds, lungs clear, No respiratory distress Cardiovascular Exam: regular rate/rhythm, normal heart sounds Gastrointestinal/Abdomen Exam: soft, No tenderness, No mass Extremity Exam: normal inspection, normal range of motion Back Exam: normal inspection, normal range of motion, No CVA tenderness, No vertebral tenderness Pelvic Exam: deferred Rectal Exam: deferred OBJECTIVE DATA Vital Signs: Vital Signs - 24 hr Temp Pulse Resp BP Pulse Ox 01/07/19 12:00 22 01/07/19 11:32 97.5 F 83 22 145/69 01/07/19 09:45 101 H 22 96 01/07/19 08:00 22 01/07/19 07:24 82 24 92 L 01/07/19 07:21 97.8 F 92 H 22 140/84 90 L 01/07/19 04:00 97.9 F 81 22 161/82 98 01/07/19 03:22 81 22 98 01/07/19 00:00 28 H 01/06/19 23:13 108 H 98 01/06/19 23:12 97.9 F 108 H 28 H 140/73 98 01/06/19 20:00 97.9 F 94 H 22 150/70 95 01/06/19 19:17 76 96 01/06/19 16:00 97.2 F 94 H 24 153/75 98 01/06/19 14:03 97 H 24 97 Oxygen-Last 24 hours O2 Percentage 50% O2 Percentage 50% O2 Percentage 50% O2 Percentage 50% O2 Percentage 50% Oxygen Flowrate (L/min)-RT 50 Pain Assessment - Last Documented Pain Intensity 6 Pain Scale Used 0-10 Pain Scale Intake and Output: Intake & Output 01/05/19 01/06/19 01/07/19 01/08/19 11:59 11:59 11:59 11:59 Intake Total 480 1796 1620 360 Output Total 200 700 960 400 Balance 280 1096 660 -40 Weight 94.3 kg 97 kg 97.1 kg Lab Results: Accuchecks Date 01/07/19 Date 01/06/19 Date 01/06/19 Time 07:30 Time 22:00 Time 16:30 Accucheck Value: 159 Accucheck Value: 158 Accucheck Value: 148 Accucheck Value: 155 Radiology Exams: Radiology Procedures Category Date Time Status CHEST 1 VIEW (PORTABLE) Stat Exams 01/06/19 07:50 Completed Multi-Disciplinary Progress Notes: Multi-Disciplinary Progress Notes 01/06/19 13:30 (created 01/06/19 15:14) Case Management Note by Aisha Jorgensen DR. ROUNDED AND EVALUATED, DISCUSSED PLAN OF CARE AND TREATMENT WITH PT. DISCUSSED NEW DX: RSV PNEUMONIA. PT IS CURRENTLY ON HEATED HIGH FLOW OXYGEN AND CONTINUES WITH SHORTNESS OF BREATH, AT REST AND WITH ANY ACTIVITY. DR. BENNETT DISCUSSED THAT PT WILL LIKELY NEED 2-3 MORE DAYS OF TREATMENT. PT VERBALIZED UNDERSTANDING TO ALL INFORMATION, TOO SHORT OF BREATH TO REPEAT INFORMATION. DR. BENNETT WILL HAVE NURSE RADHA CM PROVIDE WRITTEN INFORMATION ON DX: RSV PNEUMONIA. Initialized on 01/06/19 15:14 - END OF NOTE Assessment/Plan (1) Pneumonia, respiratory syncytial virus Current Visit: Yes Status: Acute Assessment & Plan: Last Vital Signs Temp 97.5 F 01/07/19 11:32 Pulse 83 01/07/19 11:32 Resp 22 01/07/19 12:00 BP 145/69 01/07/19 11:32 Pulse Ox 96 01/07/19 09:45 Allergies modafinil [From Provigil] Allergy (Severe, Verified 01/05/19 11:52) suicidal tendencies codeine [Codeine] Allergy (Verified 08/31/12 20:02) levofloxacin [From Levaquin] Allergy (Verified 10/23/18 04:50) tramadol Allergy (Verified 10/23/18 04:50) armodafinil [From Nuvigil] Adverse Reaction (Severe, Verified 01/05/19 11:52) suicidal tendencies fluticasone furoate [From Breo Ellipta] Adverse Reaction (Intermediate, Verified 01/05/19 11:52) full body tremors sertraline [From Zoloft] Adverse Reaction (Intermediate, Verified 01/05/19 11:52 ) full body tremors vilanterol [From Breo Ellipta] Adverse Reaction (Intermediate, Verified 11:52) full body tremors ciprofloxacin [From Cipro] Adverse Reaction (Verified 01/05/19 11:52) Leg pain Active Medications Acetaminophen (Tylenol 325 Mg) 650 mg PO Q6H PRN PRN PRN Reason: PAIN AND/OR FEVER Stop: 02/06/19 06:21 Last Admin: 01/07/19 06:24 Dose: 650 mg Albuterol Sulfate (Proventil 2.5 Mg/3 Ml Neb) 2.5 mg IH PRN PRN PRN Reason: SHORTNESS OF BREATH Stop: 02/04/19 15:46 Last Admin: 01/07/19 09:44 Dose: 2.5 mg Albuterol/Ipratropium (Duoneb 0.5-3 Mg/3 Ml Neb) 3 ml IH Q4HRT [facility] Stop: 02/04/19 06:59 Last Admin: 01/07/19 07:15 Dose: 3 ml Allopurinol (Zyloprim 100 Mg) 100 mg PO HS [facility] Stop: 02/06/19 21:59 Aspirin (Ecotrin 81 Mg) 81 mg PO MoWeFr [facility] Stop: 02/04/19 13:59 Last Admin: 01/05/19 14:39 Dose: 81 mg Enoxaparin Sodium (Enoxaparin Sodium) 40 mg SQ DAILY [facility] Stop: 02/04/19 09:59 Last Admin: 01/07/19 09:07 Dose: 40 mg Azithromycin (Zithromax 500 Mg/ 250 Ml Nacl Premix) 500 mg in 250 mls @ 250 mls /hr IV QPM [facility] Stop: 02/04/19 21:59 Last Admin: 01/06/19 22:01 Dose: 250 mls/hr Ceftriaxone Sodium/Dextrose (Rocephin 1 Gm-D5w 50 Ml Bag) 1 g in 50 mls @ 100 mls/hr IV QPM [facility] Stop: 02/04/19 21:59 Last Admin: 01/06/19 21:26 Dose: 100 mls/hr Insulin Aspart (Novolog Insulin) 0 unit SQ UD PRN PRN Reason: HYPERGLYCEMIA Stop: 02/04/19 05:46 Last Admin: 01/05/19 21:09 Dose: 3 unit Lorazepam (Ativan 2 Mg/1 Ml Vial) 1 mg IV Q4H PRN PRN PRN Reason: ANXIETY Stop: 02/05/19 15:33 Last Admin: 01/07/19 10:08 Dose: 1 mg Magnesium Oxide (Mag-Ox 400) 400 mg PO DAILY [facility] Stop: 02/04/19 13:59 Last Admin: 01/07/19 09:10 Dose: 400 mg Methylprednisolone Sodium Succinate (Solu-Medrol 125 Mg) 80 mg IV Q6HT [facility] Stop: 02/04/19 05:59 Last Admin: 01/07/19 13:14 Dose: 80 mg Ondansetron HCl (Zofran 4 Mg/2 Ml Vial) 4 mg IV Q6H PRN PRN PRN Reason: NAUSEA/VOMITING Stop: 02/06/19 13:11 Pantoprazole Sodium (Protonix 40mg Tablet) 40 mg PO HS [facility] Stop: 02/05/19 21:59 Last Admin: 01/06/19 21:26 Dose: 40 mg Potassium Chloride (Klor Con 10 Meq) 10 meq PO DAILY [facility] Stop: 02/04/19 13:59 Last Admin: 01/07/19 09:08 Dose: 10 meq Fluticasone/Salmeterol (Advair 500-50 Diskus) 1 each IH BIDRT [facility] Stop: 02/06/19 07:59 Tiotropium Howard (Spiriva 18 Mcg/Cap Inhaler) 1 ea IH QPM [facility] Stop: 02/04/19 21:59 Last Admin: 01/06/19 22:48 Dose: 1 ea Torsemide (Demadex 20 Mg) 20 mg PO DAILY [facility] Stop: 02/04/19 13:59 Last Admin: 01/07/19 09:08 Dose: 20 mg Intake & Output 01/07/19 01/08/19 11:59 11:59 Intake Total 1620 360 Output Total 960 400 Balance 660 -40 Weight 97.1 kg Orders 01/06/19 15:35 Lorazepam 2 mg/1 ml [Ativan 2 MG/1 ML VIAL] 1 mg IV Q4H PRN PRN 01/06/19 22:00 PANTOPRAZOLE 40 mg Tablet [Protonix 40MG Tablet] 40 mg PO HS 01/07/19 06:22 Acetaminophen 325 mg [Tylenol 325 mg] 650 mg PO Q6H PRN PRN 01/07/19 08:00 Fluticasone/Salmeterol 500/50* [Advair 500-50 Diskus] 1 each IH BIDRT 01/07/19 13:12 Ondansetron HCl 4 mg/2 ml [Zofran 4 MG/2 ML VIAL] 4 mg IV Q6H PRN PRN 01/07/19 22:00 Allopurinol 100 mg [Zyloprim 100 mg] 100 mg PO HS Code(s): J12.1 - RESPIRATORY SYNCYTIAL VIRUS PNEUMONIA (2) Respiratory failure with hypoxia Current Visit: Yes Status: Acute Qualifiers: Chronicity: acute on chronic Qualified Code(s): J96.21 - Acute and chronic respiratory failure with hypoxia Code(s): J96.91 - RESPIRATORY FAILURE, UNSPECIFIED WITH HYPOXIA (3) Acute bronchopneumonia Current Visit: Yes Status: Acute Onset Date: ~10/24/18 Code(s): J18.0 - BRONCHOPNEUMONIA, UNSPECIFIED ORGANISM (4) Respiratory failure, [id number] Current Visit: No Status: Acute Onset Date: ~10/24/18 Code(s): J96.20 - ACUTE AND CHR RESP FAILURE, UNSP W HYPOXIA OR HYPERCAPNIA (5) COPD exacerbation Current Visit: No Status: Resolved Onset Date: ~12/01/18 Code(s): J44.1 - CHRONIC OBSTRUCTIVE PULMONARY DISEASE W (ACUTE) EXACERBATION
[2019-01-07] MEDS: ECOTRIN 81 MG PO SCH (14:09)
[2019-01-07] MEDS: ADVAIR 500-50 DISKUS IH SCH ×2 (14:28→23:40)
[2019-01-07] MEDS: ROCEPHIN 1 Gm-D5w 50 ml Bag** 1 G/50 ML IVPB IV SCH (21:04)
[2019-01-07] MEDS: NovoLOG Insulin SQ PRN (21:07)
[2019-01-07] MEDS: ZYLOPRIM 100 MG PO SCH (21:07)
[2019-01-07] MEDS: Protonix 40MG Tablet PO SCH (21:07)
[2019-01-07] MEDS: Zithromax 500 MG/ 250 ML NaCl Premix 500 MG/250 ML IVPB IV SCH (21:49)
[2019-01-07] MEDS: Spiriva 18 Mcg/Cap Inhaler IH SCH (23:41)
[2019-01-08] MEDS: DUONEB 0.5-3 MG/3 ml Neb IH SCH ×6 (03:47→23:27)
[2019-01-08] MEDS: solu-MEDROL 125 MG IV SCH ×3 (05:42→21:38)
[2019-01-08] MEDS: ADVAIR 500-50 DISKUS IH SCH ×2 (07:56→19:26)
[2019-01-08] MEDS: MAG-OX 400 PO SCH (09:50)
[2019-01-08] MEDS: ENOXAPARIN SODIUM SQ SCH (09:50)
[2019-01-08] MEDS: Klor Con 10 MEQ PO SCH (09:50)
[2019-01-08] MEDS: DEMADEX 20 MG PO SCH (09:51)
--- NOTE | 2019-01-08 12:16 | PCM.NOTE ---
Date and Time: 01/08/19 1214 Subjective Assessment: still very short of breath, still requires BiPap to maintain SaO2 above 90 % - Review of Systems Constitutional: No Fever, No Chills Eyes: No Symptoms Ears, Nose, & Throat: No Symptoms Respiratory: Short Of Breath, Wheezing, No Cough Cardiac: No Chest Pain, No Edema, No Syncope Abdominal/Gastrointestinal: No Abdominal Pain, No Nausea, No Vomiting, No Diarrhea Genitourinary Symptoms: No Dysuria Musculoskeletal: No Back Pain, No Neck Pain Skin: No Rash Neurological: No Dizziness, No Focal Weakness, No Sensory Changes Psychological: No Symptoms Endocrine: No Symptoms Hematologic/Lymphatic: No Symptoms Immunological/Allergic: No Symptoms Objective Exam General Appearance: moderate distress, alert Neurologic Exam: alert, oriented x 3, cooperative, normal mood/affect, nml cerebellar function, sensation nml, No motor deficits Skin Exam: normal color, warm, dry Eye Exam: PERRL, EOMI, eyes nml inspection Ears, Nose, Throat Exam: normal ENT inspection, pharynx normal, moist mucous membranes Neck Exam: normal inspection, non-tender, supple, full range of motion Respiratory Exam: diminished breath sounds, accessory muscle use, rhonchi, wheezing, No respiratory distress Cardiovascular Exam: regular rate/rhythm, normal heart sounds Gastrointestinal/Abdomen Exam: soft, No tenderness, No mass Extremity Exam: normal inspection, normal range of motion Back Exam: normal inspection, normal range of motion, No CVA tenderness, No vertebral tenderness Pelvic Exam: deferred Rectal Exam: deferred OBJECTIVE DATA Vital Signs: Vital Signs - 24 hr Temp Pulse Resp BP Pulse Ox 01/08/19 12:03 88 20 98 01/08/19 11:58 22 01/08/19 10:53 97.6 F 86 22 109/58 94 L 01/08/19 08:00 22 01/08/19 07:58 94 H 20 91 L 01/08/19 07:18 97.9 F 90 22 143/74 96 01/08/19 04:20 97.9 F 92 H 22 128/67 97 01/08/19 04:03 78 23 98 01/08/19 00:16 98.4 F 87 19 138/69 99 01/07/19 23:30 83 22 98 01/07/19 19:24 98.2 F 88 24 152/84 97 01/07/19 19:03 88 24 98 01/07/19 16:12 97.9 F 92 H 22 155/87 90 L 01/07/19 16:00 22 01/07/19 14:30 98 H 20 94 L Oxygen-Last 24 hours O2 Percentage 50% O2 Percentage 50% O2 Percentage 50% O2 Percentage 50% O2 Percentage 50% Pain Assessment - Last Documented Pain Intensity 6 Pain Scale Used FLACC Intake and Output: Intake & Output 01/06/19 01/07/19 01/08/19 01/09/19 11:59 11:59 11:59 11:59 Intake Total 1796 1620 3062 Output Total 048 560 0936 Balance 1096 660 662 Weight 97 kg 97.1 kg 95.6 kg Lab Results: Accuchecks Date 01/08/19 Date 01/08/19 Date 01/07/19 Time 11:30 Time 07:30 Time 16:25 Accucheck Value: 153 Accucheck Value: 160 Accucheck Value: 154 Accucheck Value: 132 Assessment/Plan (1) Pneumonia, respiratory syncytial virus Current Visit: Yes Status: Acute Assessment & Plan: Last Vital Signs Temp 97.6 F 01/08/19 10:53 Pulse 88 01/08/19 12:03 Resp 20 01/08/19 12:03 BP 109/58 01/08/19 10:53 Pulse Ox 98 01/08/19 12:03 Allergies modafinil [From Provigil] Allergy (Severe, Verified 01/05/19 11:52) suicidal tendencies codeine [Codeine] Allergy (Verified 08/31/12 20:02) levofloxacin [From Levaquin] Allergy (Verified 10/23/18 04:50) tramadol Allergy (Verified 10/23/18 04:50) armodafinil [From Nuvigil] Adverse Reaction (Severe, Verified 01/05/19 11:52) suicidal tendencies fluticasone furoate [From Breo Ellipta] Adverse Reaction (Intermediate, Verified 01/05/19 11:52) full body tremors sertraline [From Zoloft] Adverse Reaction (Intermediate, Verified 01/05/19 11:52 ) full body tremors vilanterol [From Breo Ellipta] Adverse Reaction (Intermediate, Verified 11:52) full body tremors ciprofloxacin [From Cipro] Adverse Reaction (Verified 01/05/19 11:52) Leg pain Active Medications Acetaminophen (Tylenol 325 Mg) 650 mg PO Q6H PRN PRN PRN Reason: PAIN AND/OR FEVER Stop: 02/06/19 06:21 Last Admin: 01/07/19 21:07 Dose: 650 mg Albuterol Sulfate (Proventil 2.5 Mg/3 Ml Neb) 2.5 mg IH PRN PRN PRN Reason: SHORTNESS OF BREATH Stop: 02/04/19 15:46 Last Admin: 01/07/19 09:44 Dose: 2.5 mg Albuterol/Ipratropium (Duoneb 0.5-3 Mg/3 Ml Neb) 3 ml IH Q4HRT [place] Stop: 02/04/19 06:59 Last Admin: 01/08/19 12:02 Dose: 3 ml Allopurinol (Zyloprim 100 Mg) 100 mg PO HS [place] Stop: 02/06/19 21:59 Last Admin: 01/07/19 21:07 Dose: 100 mg Aspirin (Ecotrin 81 Mg) 81 mg PO MoWeFr [facility] Stop: 02/04/19 13:59 Last Admin: 01/07/19 14:09 Dose: 81 mg Enoxaparin Sodium (Enoxaparin Sodium) 40 mg SQ DAILY [place] Stop: 02/04/19 09:59 Last Admin: 01/08/19 09:50 Dose: 40 mg Azithromycin (Zithromax 500 Mg/ 250 Ml Nacl Premix) 500 mg in 250 mls @ 250 mls /hr IV QPM [place] Stop: 02/04/19 21:59 Last Admin: 01/07/19 21:49 Dose: 250 mls/hr Ceftriaxone Sodium/Dextrose (Rocephin 1 Gm-D5w 50 Ml Bag) 1 g in 50 mls @ 100 mls/hr IV QPM [place] Stop: 02/04/19 21:59 Last Admin: 01/07/19 21:04 Dose: 100 mls/hr Insulin Aspart (Novolog Insulin) 0 unit SQ UD PRN PRN Reason: HYPERGLYCEMIA Stop: 02/04/19 05:46 Last Admin: 01/07/19 21:07 Dose: 3 unit Lorazepam (Ativan 2 Mg/1 Ml Vial) 1 mg IV Q4H PRN PRN PRN Reason: ANXIETY Stop: 02/05/19 15:33 Last Admin: 01/07/19 18:00 Dose: 1 mg Magnesium Oxide (Mag-Ox 400) 400 mg PO DAILY [place] Stop: 02/04/19 13:59 Last Admin: 01/08/19 09:50 Dose: 400 mg Methylprednisolone Sodium Succinate (Solu-Medrol 125 Mg) 80 mg IV Q6HT [place] Stop: 02/04/19 05:59 Last Admin: 01/08/19 11:52 Dose: 80 mg Ondansetron HCl (Zofran 4 Mg/2 Ml Vial) 4 mg IV Q6H PRN PRN PRN Reason: NAUSEA/VOMITING Stop: 02/06/19 13:11 Last Admin: 01/07/19 13:36 Dose: 4 mg Pantoprazole Sodium (Protonix 40mg Tablet) 40 mg PO HS [place] Stop: 02/05/19 21:59 Last Admin: 01/07/19 21:07 Dose: 40 mg Potassium Chloride (Klor Con 10 Meq) 10 meq PO DAILY [place] Stop: 02/04/19 13:59 Last Admin: 01/08/19 09:50 Dose: 10 meq Fluticasone/Salmeterol (Advair 500-50 Diskus) 1 each IH BIDRT [place] Stop: 02/06/19 07:59 Last Admin: 01/08/19 07:56 Dose: 1 each Tiotropium Backus (Spiriva 18 Mcg/Cap Inhaler) 1 ea IH QPM [place] Stop: 02/04/19 21:59 Last Admin: 01/07/19 23:41 Dose: 1 ea Torsemide (Demadex 20 Mg) 20 mg PO DAILY [place] Stop: 02/04/19 13:59 Last Admin: 01/08/19 09:51 Dose: 20 mg Intake & Output 01/08/19 01/09/19 11:59 11:59 Intake Total 3062 Output Total 2400 Balance 662 Weight 95.6 kg Orders 01/07/19 13:12 Ondansetron HCl 4 mg/2 ml [Zofran 4 MG/2 ML VIAL] 4 mg IV Q6H PRN PRN 01/07/19 22:00 Allopurinol 100 mg [Zyloprim 100 mg] 100 mg PO HS Code(s): J12.1 - RESPIRATORY SYNCYTIAL VIRUS PNEUMONIA (2) Respiratory failure with hypoxia Current Visit: Yes Status: Acute Qualifiers: Chronicity: acute on chronic Qualified Code(s): J96.21 - Acute and chronic respiratory failure with hypoxia Code(s): J96.91 - RESPIRATORY FAILURE, UNSPECIFIED WITH HYPOXIA (3) Acute bronchopneumonia Current Visit: Yes Status: Acute Onset Date: ~10/24/18 Code(s): J18.0 - BRONCHOPNEUMONIA, UNSPECIFIED ORGANISM (4) Respiratory failure, [id number] Current Visit: No Status: Acute Onset Date: ~10/24/18 Code(s): J96.20 - ACUTE AND CHR RESP FAILURE, UNSP W HYPOXIA OR HYPERCAPNIA (5) COPD exacerbation Current Visit: No Status: Resolved Onset Date: ~10/23/18 Code(s): J44.1 - CHRONIC OBSTRUCTIVE PULMONARY DISEASE W (ACUTE) EXACERBATION
[2019-01-08] MEDS: Spiriva 18 Mcg/Cap Inhaler IH SCH (19:27)
[2019-01-08] MEDS: Ativan 2 MG/1 ML VIAL IV PRN (19:51)
[2019-01-08] MEDS: Protonix 40MG Tablet PO SCH (21:38)
[2019-01-08] MEDS: ROCEPHIN 1 Gm-D5w 50 ml Bag** 1 G/50 ML IVPB IV SCH (21:38)
[2019-01-08] MEDS: ZYLOPRIM 100 MG PO SCH (21:38)
[2019-01-08] MEDS: Zithromax 500 MG/ 250 ML NaCl Premix 500 MG/250 ML IVPB IV SCH (22:53)
[2019-01-09] MEDS: Ativan 2 MG/1 ML VIAL IV PRN ×2 (00:05→21:52)
[2019-01-09] MEDS: TYLENOL 325 MG PO PRN (00:05)
[2019-01-09] MEDS: DUONEB 0.5-3 MG/3 ml Neb IH SCH ×6 (03:38→23:10)
[2019-01-09] MEDS: solu-MEDROL 125 MG IV SCH ×3 (05:40→21:51)
[2019-01-09] MEDS: ADVAIR 500-50 DISKUS IH SCH ×2 (07:38→20:02)
--- NOTE | 2019-01-09 07:59 | PCM.NOTE ---
Date and Time: 01/09/19 0758 Subjective Assessment: still shortness of breath - Review of Systems Constitutional: No Fever, No Chills Eyes: No Symptoms Ears, Nose, & Throat: No Symptoms Respiratory: No Cough, No Short Of Breath Cardiac: No Chest Pain, No Edema, No Syncope Abdominal/Gastrointestinal: No Abdominal Pain, No Nausea, No Vomiting, No Diarrhea Genitourinary Symptoms: No Dysuria Musculoskeletal: No Back Pain, No Neck Pain Skin: No Rash Neurological: No Dizziness, No Focal Weakness, No Sensory Changes Psychological: No Symptoms Endocrine: No Symptoms Hematologic/Lymphatic: No Symptoms Immunological/Allergic: No Symptoms Objective Exam General Appearance: no apparent distress, alert Neurologic Exam: alert, oriented x 3, cooperative, normal mood/affect, nml cerebellar function, sensation nml, No motor deficits Skin Exam: normal color, warm, dry Eye Exam: PERRL, EOMI, eyes nml inspection Ears, Nose, Throat Exam: normal ENT inspection, pharynx normal, moist mucous membranes Neck Exam: normal inspection, non-tender, supple, full range of motion Respiratory Exam: normal breath sounds, lungs clear, No respiratory distress Cardiovascular Exam: regular rate/rhythm, normal heart sounds Gastrointestinal/Abdomen Exam: soft, No tenderness, No mass Extremity Exam: normal inspection, normal range of motion Back Exam: normal inspection, normal range of motion, No CVA tenderness, No vertebral tenderness Pelvic Exam: deferred Rectal Exam: deferred OBJECTIVE DATA Vital Signs: Vital Signs - 24 hr Temp Pulse Resp BP Pulse Ox 01/09/19 07:49 22 01/09/19 07:29 97.6 F 72 22 146/73 95 01/09/19 04:00 97.2 F 83 20 176/67 99 01/09/19 03:38 83 21 99 01/09/19 00:16 98.3 F 84 24 151/76 98 01/08/19 23:29 91 H 98 01/08/19 19:27 89 27 H 88 L 01/08/19 19:16 98.0 F 79 22 146/75 95 01/08/19 16:05 97.8 F 88 20 159/69 92 L 01/08/19 16:00 20 01/08/19 14:45 103 H 22 95 01/08/19 12:03 88 20 98 01/08/19 11:58 22 01/08/19 10:53 97.6 F 86 22 109/58 94 L 01/08/19 08:00 22 Oxygen-Last 24 hours O2 Percentage 50% O2 Percentage 50% O2 Percentage 50% O2 Percentage 50% Pain Assessment - Last Documented Pain Intensity 9 Pain Scale Used 0-10 Pain Scale Intake and Output: Intake & Output 01/06/19 01/07/19 01/08/19 01/09/19 11:59 11:59 11:59 11:59 Intake Total 1796 1620 3062 1767 Output Total 290 846 3910 1600 Balance 1096 660 662 167 Weight 97 kg 97.1 kg 95.6 kg 93.8 kg Lab Results: Accuchecks Date 01/09/19 Date 01/08/19 Date 01/08/19 Time 07:30 Time 16:30 Time 11:30 Accucheck Value: 172 Accucheck Value: 110 Accucheck Value: 187 Accucheck Value: 153 Multi-Disciplinary Progress Notes: Multi-Disciplinary Progress Notes 01/08/19 19:59 Respiratory Note by Abel Odom PT SATS WERE ON H.F., SHE WAS SOB AND SATS WERE LOW SO I PLACED HER ON BIPAP AND GAVE TX INLINE. SATS CAME UP TO 94% RIGHT AWAY AND WERE 96% POST TX. I LEFT PT ON BIPAP. Initialized on 01/08/19 19:59 - END OF NOTE Assessment/Plan (1) Pneumonia, respiratory syncytial virus Current Visit: Yes Status: Acute Code(s): J12.1 - RESPIRATORY SYNCYTIAL VIRUS PNEUMONIA (2) Respiratory failure with hypoxia Current Visit: Yes Status: Acute Qualifiers: Chronicity: acute on chronic Qualified Code(s): J96.21 - Acute and chronic respiratory failure with hypoxia Code(s): J96.91 - RESPIRATORY FAILURE, UNSPECIFIED WITH HYPOXIA (3) Acute bronchopneumonia Current Visit: Yes Status: Acute Onset Date: ~10/24/18 Code(s): J18.0 - BRONCHOPNEUMONIA, UNSPECIFIED ORGANISM (4) Respiratory failure, [id number] Current Visit: No Status: Acute Onset Date: ~10/24/18 Code(s): J96.20 - ACUTE AND CHR RESP FAILURE, UNSP W HYPOXIA OR HYPERCAPNIA (5) COPD exacerbation Current Visit: No Status: Resolved Onset Date: ~10/23/18 Code(s): J44.1 - CHRONIC OBSTRUCTIVE PULMONARY DISEASE W (ACUTE) EXACERBATION
[2019-01-09] MEDS: MAG-OX 400 PO SCH (09:17)
[2019-01-09] MEDS: Klor Con 10 MEQ PO SCH (09:17)
[2019-01-09] MEDS: ENOXAPARIN SODIUM SQ SCH (09:17)
[2019-01-09] MEDS: DEMADEX 20 MG PO SCH (09:18)
[2019-01-09] MEDS: Spiriva 18 Mcg/Cap Inhaler IH SCH (20:02)
[2019-01-09] MEDS: ROCEPHIN 1 Gm-D5w 50 ml Bag** 1 G/50 ML IVPB IV SCH (21:50)
[2019-01-09] MEDS: Protonix 40MG Tablet PO SCH (21:50)
[2019-01-09] MEDS: ZYLOPRIM 100 MG PO SCH (21:52)
[2019-01-09] MEDS: Zithromax 500 MG/ 250 ML NaCl Premix 500 MG/250 ML IVPB IV SCH (22:41)
[2019-01-10] MEDS: DUONEB 0.5-3 MG/3 ml Neb IH SCH ×6 (03:53→23:24)
[2019-01-10] MEDS: solu-MEDROL 125 MG IV SCH (05:47)
[2019-01-10 06:12] LABS: Hematocrit 39.7 % (35-47); Hemoglobin 12.7 gm/dl (12.0-16.0); Mean Cell Volume 105.6 fl (78-100); Mean Platelet Volume 8.8 fl (6-9.5); Platelet Count 320 K/mm3 (150-450); Red Blood Count 3.76 M/mm3 (4.1-5.4); White Blood Count 15.5 K/mm3 (4.0-10.5)
[2019-01-10 06:18] LABS: Calcium 9.4 mg/dL (8.4-10.2); Creatinine 1 1.04 mg/dL (0.52-1.04); Potassium 4.5 mmol/L (3.5-5.1)
[2019-01-10 06:34] LABS: ANION GAP 11.5 MEQ/L (5-15)
[2019-01-10 06:35] LABS: Mean Corpuscular Hemoglobin 33.7 pg (26-32)
[2019-01-10] MEDS: ADVAIR 500-50 DISKUS IH SCH ×2 (06:48→19:15)
[2019-01-10 07:43] LABS: Lymphocytes 13 % (24-44); Monocyte 4 % (0.0-12.0); Neutrophils 83 % (36.0-66.0); Platelet Estimate NORMAL (NORMAL); Total Cells Counted 100; Toxic Granulation 1+
[2019-01-10] MEDS: ENOXAPARIN SODIUM SQ SCH (09:38)
[2019-01-10] MEDS: MAG-OX 400 PO SCH (09:39)
[2019-01-10] MEDS: Klor Con 10 MEQ PO SCH (09:39)
[2019-01-10] MEDS: DEMADEX 20 MG PO SCH (09:39)
[2019-01-10] MEDS ORDERED: OCEAN Nasal Spray NS PRN (14:24)
[2019-01-10] MEDS: ECOTRIN 81 MG PO SCH (14:27)
[2019-01-10] MEDS: Spiriva 18 Mcg/Cap Inhaler IH SCH (19:17)
[2019-01-10] MEDS: Zithromax 500 MG/ 250 ML NaCl Premix 500 MG/250 ML IVPB IV SCH (21:34)
[2019-01-10] MEDS: ROCEPHIN 1 Gm-D5w 50 ml Bag** 1 G/50 ML IVPB IV SCH (21:34)
[2019-01-10] MEDS: ZYLOPRIM 100 MG PO SCH (21:34)
[2019-01-10] MEDS: Ativan 2 MG/1 ML VIAL IV PRN (21:34)
[2019-01-10] MEDS: Protonix 40MG Tablet PO SCH (21:34)
[2019-01-10] MEDS: TYLENOL 325 MG PO PRN (23:34)
[2019-01-11] MEDS: DUONEB 0.5-3 MG/3 ml Neb IH SCH ×6 (03:25→23:12)
[2019-01-11] MEDS: ADVAIR 500-50 DISKUS IH SCH ×2 (06:44→19:02)
--- NOTE | 2019-01-11 08:36 | PCM.NOTE ---
Date and Time: 01/11/19829 late entry for 01/10/2019 Subjective Assessment: doing ok, still very short of breath unable to hold saturations - Review of Systems Constitutional: No Fever, No Chills Eyes: No Symptoms Ears, Nose, & Throat: No Symptoms Respiratory: Cough, Orthopnea, Short Of Breath Cardiac: No Chest Pain, No Edema, No Syncope Abdominal/Gastrointestinal: No Abdominal Pain, No Nausea, No Vomiting, No Diarrhea Genitourinary Symptoms: No Dysuria Musculoskeletal: No Back Pain, No Neck Pain Skin: No Rash Neurological: No Dizziness, No Focal Weakness, No Sensory Changes Psychological: No Symptoms Endocrine: No Symptoms Hematologic/Lymphatic: No Symptoms Immunological/Allergic: No Symptoms Objective Exam General Appearance: no apparent distress, alert Neurologic Exam: alert, oriented x 3, cooperative, normal mood/affect, nml cerebellar function, sensation nml, No motor deficits Skin Exam: normal color, warm, dry Eye Exam: PERRL, EOMI, eyes nml inspection Ears, Nose, Throat Exam: normal ENT inspection, pharynx normal, moist mucous membranes Neck Exam: normal inspection, non-tender, supple, full range of motion Respiratory Exam: normal breath sounds, prolonged expirations, crackles/rales, rhonchi, No respiratory distress Cardiovascular Exam: regular rate/rhythm, normal heart sounds Gastrointestinal/Abdomen Exam: soft, No tenderness, No mass Extremity Exam: normal inspection, normal range of motion Back Exam: normal inspection, normal range of motion, No CVA tenderness, No vertebral tenderness Pelvic Exam: deferred Rectal Exam: deferred OBJECTIVE DATA Vital Signs: Vital Signs - 24 hr Temp Pulse Resp BP Pulse Ox 01/11/19 07:56 96.6 F 75 21 124/65 97 01/11/19 07:08 80 20 98 01/11/19 05:47 98 01/11/19 04:00 97 F 72 22 144/66 95 01/11/19 03:34 72 22 95 01/11/19 00:00 20 01/10/19 23:42 97.6 F 83 20 150/64 97 01/10/19 23:35 88 28 H 99 01/10/19 20:00 20 01/10/19 19:28 76 20 95 01/10/19 19:07 97.1 F 76 13 112/55 92 L 01/10/19 16:00 98.4 F 79 18 127/59 90 L 01/10/19 15:37 80 20 93 L 01/10/19 12:00 97.9 F 85 20 125/68 90 L 01/10/19 11:06 84 22 93 L Oxygen-Last 24 hours O2 Percentage 50% O2 Percentage 50% O2 Percentage 50% O2 Percentage 60% O2 Percentage 50% Oxygen Flowrate (L/min)-RT 50 Pain Assessment - Last Documented Pain Intensity 9 Pain Scale Used FLACC Intake and Output: Intake & Output 01/08/19 01/09/19 01/10/19 01/11/19 11:59 11:59 11:59 11:59 Intake Total 3062 1767 2487 1370 Output Total 2400 1600 2350 2200 Balance 662 167 137 -830 Weight 95.6 kg 93.8 kg 92.3 kg 94.8 kg Lab Results: Accuchecks Date 01/11/19 Date 01/10/19 Date 01/10/19 Date 01/10/19 Time 07:55 Time 16:51 Time 11:30 Accucheck Value: 90 Accucheck Value: 104 Accucheck Value: 141 Accucheck Value: 153 Multi-Disciplinary Progress Notes: Multi-Disciplinary Progress Notes 01/10/19 12:30 (created 01/10/19 14:41) Case Management Note by Aisha Jorgensen DR ROUNDED AND EVALUATED, DISCUSSED TREATMENT WITH PT, DECREASE STEROID TO 80MG IV Q DAY, PT CONTINUES TO HAVE SHORTNESS OF BREATH AND REQUIRING HIGH FLOW HEATED OXYGEN. RT TO CONTINUE TO WORK WITH PT TO WEAN OXYGEN TOLERATED. PT VERBALIZED UNDERSTANDING, ABLE TO REPEAT INFORMATION BACK, REPORTS SHE IS FEELING A LITTLE BETTER TODAY. NO ADDNL NEEDS IDENTIFIED AT THIS TIME. WILL CONTINUE TO FOLLOW. Initialized on 01/10/19 14:41 - END OF NOTE Assessment/Plan (1) Respiratory failure with hypoxia and hypercapnia Current Visit: Yes Status: Acute Qualifiers: Chronicity: acute on chronic Qualified Code(s): J96.21 - Acute and chronic respiratory failure with hypoxia; J96.22 - Acute and chronic respiratory failure with hypercapnia Assessment & Plan: Patient is still required hiflow oxygen 50 liters/minutes Code(s): J96.91 - RESPIRATORY FAILURE, UNSPECIFIED WITH HYPOXIA; J96.92 - RESPIRATORY FAILURE, UNSPECIFIED WITH HYPERCAPNIA (2) Pneumonia, respiratory syncytial virus Current Visit: Yes Status: Acute Code(s): J12.1 - RESPIRATORY SYNCYTIAL VIRUS PNEUMONIA (3) Respiratory failure with hypoxia Current Visit: Yes Status: Acute Qualifiers: Chronicity: acute on chronic Qualified Code(s): J96.21 - Acute and chronic respiratory failure with hypoxia Code(s): J96.91 - RESPIRATORY FAILURE, UNSPECIFIED WITH HYPOXIA (4) Acute bronchopneumonia Current Visit: Yes Status: Acute Onset Date: ~10/24/18 Code(s): J18.0 - BRONCHOPNEUMONIA, UNSPECIFIED ORGANISM (5) Respiratory failure, [id number] Current Visit: No Status: Acute Onset Date: ~10/24/18 Code(s): J96.20 - ACUTE AND CHR RESP FAILURE, UNSP W HYPOXIA OR HYPERCAPNIA (6) COPD exacerbation Current Visit: No Status: Resolved Onset Date: ~10/23/18 Code(s): J44.1 - CHRONIC OBSTRUCTIVE PULMONARY DISEASE W (ACUTE) EXACERBATION
--- NOTE | 2019-01-11 08:39 | PCM.NOTE ---
Date and Time: 01/11/19836 Subjective Assessment: still very short of breath,still requires high flow oxygen - Review of Systems Constitutional: No Fever, No Chills Eyes: No Symptoms Ears, Nose, & Throat: No Symptoms Respiratory: Cough, Orthopnea, Short Of Breath, Wheezing Cardiac: No Chest Pain, No Edema, No Syncope Abdominal/Gastrointestinal: No Abdominal Pain, No Nausea, No Vomiting, No Diarrhea Genitourinary Symptoms: No Dysuria Musculoskeletal: No Back Pain, No Neck Pain Skin: No Rash Neurological: No Dizziness, No Focal Weakness, No Sensory Changes Psychological: No Symptoms Endocrine: No Symptoms Hematologic/Lymphatic: No Symptoms Immunological/Allergic: No Symptoms Objective Exam General Appearance: no apparent distress, alert Neurologic Exam: alert, oriented x 3, cooperative, normal mood/affect, nml cerebellar function, sensation nml, No motor deficits Skin Exam: normal color, warm, dry Eye Exam: PERRL, EOMI, eyes nml inspection Ears, Nose, Throat Exam: normal ENT inspection, pharynx normal, moist mucous membranes Neck Exam: normal inspection, non-tender, supple, full range of motion Respiratory Exam: diminished breath sounds, prolonged expirations, crackles/ rales, rhonchi, No respiratory distress Cardiovascular Exam: regular rate/rhythm, normal heart sounds Gastrointestinal/Abdomen Exam: soft, No tenderness, No mass Extremity Exam: normal inspection, normal range of motion Back Exam: normal inspection, normal range of motion, No CVA tenderness, No vertebral tenderness Pelvic Exam: deferred Rectal Exam: deferred OBJECTIVE DATA Vital Signs: Vital Signs - 24 hr Temp Pulse Resp BP Pulse Ox 01/11/19 07:56 96.6 F 75 21 124/65 97 01/11/19 07:08 80 20 98 01/11/19 05:47 98 01/11/19 04:00 97 F 72 22 144/66 95 01/11/19 03:34 72 22 95 01/11/19 00:00 20 01/10/19 23:42 97.6 F 83 20 150/64 97 01/10/19 23:35 88 28 H 99 01/10/19 20:00 20 01/10/19 19:28 76 20 95 01/10/19 19:07 97.1 F 76 13 112/55 92 L 01/10/19 16:00 98.4 F 79 18 127/59 90 L 01/10/19 15:37 80 20 93 L 01/10/19 12:00 97.9 F 85 20 125/68 90 L 01/10/19 11:06 84 22 93 L Oxygen-Last 24 hours O2 Percentage 50% O2 Percentage 50% O2 Percentage 50% O2 Percentage 60% O2 Percentage 50% Oxygen Flowrate (L/min)-RT 50 Pain Assessment - Last Documented Pain Intensity 9 Pain Scale Used FLACC Intake and Output: Intake & Output 01/08/19 01/09/19 01/10/19 01/11/19 11:59 11:59 11:59 11:59 Intake Total 3062 1767 2487 1370 Output Total 2400 1600 2350 2200 Balance 662 167 137 -830 Weight 95.6 kg 93.8 kg 92.3 kg 94.8 kg Lab Results: Accuchecks Date 01/11/19 Date 01/10/19 Date 01/10/19 Date 01/10/19 Time 07:55 Time 16:51 Time 11:30 Accucheck Value: 90 Accucheck Value: 104 Accucheck Value: 141 Accucheck Value: 153 Multi-Disciplinary Progress Notes: Multi-Disciplinary Progress Notes 01/10/19 12:30 (created 01/10/19 14:41) Case Management Note by Aisha Jorgensen DR ROUNDED AND EVALUATED, DISCUSSED TREATMENT WITH PT, DECREASE STEROID TO 80MG IV Q DAY, PT CONTINUES TO HAVE SHORTNESS OF BREATH AND REQUIRING HIGH FLOW HEATED OXYGEN. RT TO CONTINUE TO WORK WITH PT TO WEAN OXYGEN TOLERATED. PT VERBALIZED UNDERSTANDING, ABLE TO REPEAT INFORMATION BACK, REPORTS SHE IS FEELING A LITTLE BETTER TODAY. NO ADDNL NEEDS IDENTIFIED AT THIS TIME. WILL CONTINUE TO FOLLOW. Initialized on 01/10/19 14:41 - END OF NOTE Assessment/Plan (1) Respiratory failure with hypoxia and hypercapnia Current Visit: Yes Status: Acute Qualifiers: Chronicity: acute on chronic Qualified Code(s): J96.21 - Acute and chronic respiratory failure with hypoxia; J96.22 - Acute and chronic respiratory failure with hypercapnia Assessment & Plan: Last Vital Signs Temp 96.6 F 01/11/19 07:56 Pulse 75 01/11/19 07:56 Resp 21 01/11/19 07:56 BP 124/65 01/11/19 07:56 Pulse Ox 97 01/11/19 07:56 Allergies modafinil [From Provigil] Allergy (Severe, Verified 01/05/19 11:52) suicidal tendencies codeine [Codeine] Allergy (Verified 08/31/12 20:02) levofloxacin [From Levaquin] Allergy (Verified 10/23/18 04:50) tramadol Allergy (Verified 10/23/18 04:50) armodafinil [From Nuvigil] Adverse Reaction (Severe, Verified 01/05/19 11:52) suicidal tendencies fluticasone furoate [From Breo Ellipta] Adverse Reaction (Intermediate, Verified 01/05/19 11:52) full body tremors sertraline [From Zoloft] Adverse Reaction (Intermediate, Verified 01/05/19 11:52 ) full body tremors vilanterol [From Breo Ellipta] Adverse Reaction (Intermediate, Verified 11:52) full body tremors ciprofloxacin [From Cipro] Adverse Reaction (Verified 01/05/19 11:52) Leg pain Active Medications Acetaminophen (Tylenol 325 Mg) 650 mg PO Q6H PRN PRN PRN Reason: PAIN AND/OR FEVER Stop: 02/06/19 06:21 Last Admin: 01/10/19 23:34 Dose: 650 mg Albuterol Sulfate (Proventil 2.5 Mg/3 Ml Neb) 2.5 mg IH PRN PRN PRN Reason: SHORTNESS OF BREATH Stop: 02/04/19 15:46 Last Admin: 01/07/19 09:44 Dose: 2.5 mg Albuterol/Ipratropium (Duoneb 0.5-3 Mg/3 Ml Neb) 3 ml IH Q4HRT [facility] Stop: 02/04/19 06:59 Last Admin: 01/11/19 06:44 Dose: 3 ml Allopurinol (Zyloprim 100 Mg) 100 mg PO HS [facility] Stop: 02/06/19 21:59 Last Admin: 01/10/19 21:34 Dose: 100 mg Aspirin (Ecotrin 81 Mg) 81 mg PO MoWeFr [facility] Stop: 02/04/19 13:59 Last Admin: 01/10/19 14:27 Dose: 81 mg Enoxaparin Sodium (Enoxaparin Sodium) 40 mg SQ DAILY [facility] Stop: 02/04/19 09:59 Last Admin: 01/10/19 09:38 Dose: 40 mg Azithromycin (Zithromax 500 Mg/ 250 Ml Nacl Premix) 500 mg in 250 mls @ 250 mls /hr IV QPM [facility] Stop: 02/04/19 21:59 Last Admin: 01/10/19 21:34 Dose: 250 mls/hr Ceftriaxone Sodium/Dextrose (Rocephin 1 Gm-D5w 50 Ml Bag) 1 g in 50 mls @ 100 mls/hr IV QPM [place] Stop: 02/04/19 21:59 Last Admin: 01/10/19 21:34 Dose: 100 mls/hr Insulin Aspart (Novolog Insulin) 0 unit SQ UD PRN PRN Reason: HYPERGLYCEMIA Stop: 02/04/19 05:46 Last Admin: 01/07/19 21:07 Dose: 3 unit Lorazepam (Ativan 2 Mg/1 Ml Vial) 1 mg IV Q4H PRN PRN PRN Reason: ANXIETY Stop: 02/05/19 15:33 Last Admin: 01/10/19 21:34 Dose: 1 mg Magnesium Oxide (Mag-Ox 400) 400 mg PO DAILY [facility] Stop: 02/04/19 13:59 Last Admin: 01/10/19 09:39 Dose: 400 mg Methylprednisolone Sodium Succinate (Solu-Medrol 125 Mg) 80 mg IV DAILY [facility] Stop: 02/10/19 09:59 Ondansetron HCl (Zofran 4 Mg/2 Ml Vial) 4 mg IV Q6H PRN PRN PRN Reason: NAUSEA/VOMITING Stop: 02/06/19 13:11 Last Admin: 01/07/19 13:36 Dose: 4 mg Pantoprazole Sodium (Protonix 40mg Tablet) 40 mg PO HS [facility] Stop: 02/05/19 21:59 Last Admin: 01/10/19 21:34 Dose: 40 mg Potassium Chloride (Klor Con 10 Meq) 10 meq PO DAILY [facility] Stop: 02/04/19 13:59 Last Admin: 01/10/19 09:39 Dose: 10 meq Fluticasone/Salmeterol (Advair 500-50 Diskus) 1 each IH BIDRT [place] Stop: 02/06/19 07:59 Last Admin: 01/11/19 06:44 Dose: 1 each Sodium Chloride ([place] Nasal [place]) 1 ml NS Q4H PRN PRN PRN Reason: congestion Stop: 02/09/19 14:23 Tiotropium Chancellor (Spiriva 18 Mcg/Cap Inhaler) 1 ea IH QPM [place] Stop: 02/04/19 21:59 Last Admin: 01/10/19 19:17 Dose: 1 ea Torsemide (Demadex 20 Mg) 20 mg PO DAILY [place] Stop: 02/04/19 13:59 Last Admin: 01/10/19 09:39 Dose: 20 mg Intake & Output 01/10/19 01/11/19 11:59 11:59 Intake Total 2487 1430 Output Total 2350 2200 Balance 137 -770 Weight 92.3 kg 94.8 kg Orders 01/10/19 14:24 Sodium Chloride Nasal [place] [OCEAN Nasal [place]] 1 ml NS Q4H PRN PRN 01/10/19 15:38 Recertification ROUTINE 01/11/19 10:00 Methylprednis Sod Succ 125 mg* [solu-MEDROL 125 MG] 80 mg IV DAILY Code(s): J96.91 - RESPIRATORY FAILURE, UNSPECIFIED WITH HYPOXIA; J96.92 - RESPIRATORY FAILURE, UNSPECIFIED WITH HYPERCAPNIA (2) Pneumonia, respiratory syncytial virus Current Visit: Yes Status: Acute Code(s): J12.1 - RESPIRATORY SYNCYTIAL VIRUS PNEUMONIA (3) Respiratory failure with hypoxia Current Visit: Yes Status: Acute Qualifiers: Chronicity: acute on chronic Qualified Code(s): J96.21 - Acute and chronic respiratory failure with hypoxia Code(s): J96.91 - RESPIRATORY FAILURE, UNSPECIFIED WITH HYPOXIA (4) Acute bronchopneumonia Current Visit: Yes Status: Acute Onset Date: ~10/24/18 Code(s): J18.0 - BRONCHOPNEUMONIA, UNSPECIFIED ORGANISM (5) Respiratory failure, [id number] Current Visit: No Status: Acute Onset Date: ~10/24/18 Code(s): J96.20 - ACUTE AND CHR RESP FAILURE, UNSP W HYPOXIA OR HYPERCAPNIA (6) COPD exacerbation Current Visit: No Status: Resolved Onset Date: ~12/01/18 Code(s): J44.1 - CHRONIC OBSTRUCTIVE PULMONARY DISEASE W (ACUTE) EXACERBATION
[2019-01-11] MEDS ORDERED: CARDIZEM DRIP 100 MG/100 ML D5W 100 ML IV PRN (08:40)
[2019-01-11] MEDS ORDERED: Cardizem IV 50 MG/10 ML IV ONE (08:40)
[2019-01-11] MEDS: MAG-OX 400 PO SCH (09:38)
[2019-01-11] MEDS: ENOXAPARIN SODIUM SQ SCH (09:38)
[2019-01-11] MEDS: Klor Con 10 MEQ PO SCH (09:38)
[2019-01-11] MEDS ORDERED: solu-MEDROL 125 MG IV SCH (10:00)
[2019-01-11] MEDS ORDERED: solu-MEDROL 40 MG IV SCH (10:45)
[2019-01-11] MEDS: NovoLOG Insulin SQ PRN (16:02)
[2019-01-11] MEDS: Spiriva 18 Mcg/Cap Inhaler IH SCH (19:02)
[2019-01-11] MEDS: Zithromax 500 MG/ 250 ML NaCl Premix 500 MG/250 ML IVPB IV SCH (22:39)
[2019-01-11] MEDS: Ativan 2 MG/1 ML VIAL IV PRN (22:40)
[2019-01-11] MEDS: ROCEPHIN 1 Gm-D5w 50 ml Bag** 1 G/50 ML IVPB IV SCH (22:40)
[2019-01-11] MEDS: ZYLOPRIM 100 MG PO SCH (22:40)
[2019-01-11] MEDS: Protonix 40MG Tablet PO SCH (22:40)
[2019-01-12] MEDS: DUONEB 0.5-3 MG/3 ml Neb IH SCH ×2 (03:04→07:23)
[2019-01-12 07:33] VITALS: BP 144/77; PULSE 81; O2SAT 94
[2019-01-12] MEDS: MAG-OX 400 PO SCH (09:42)
[2019-01-12] MEDS: Klor Con 10 MEQ PO SCH (09:42)
[2019-01-12] MEDS: ENOXAPARIN SODIUM SQ SCH (09:42)
[2019-01-12] MEDS ORDERED: solu-MEDROL 40 MG IV SCH (10:00)
== END 2019-01-12 10:15 | disposition home health service (06) | DRG 190 ==
LOC: ED 00:58 → MED SURG 07:00
PROVIDERS: ADMIT General Practice; ATTEND General Practice
DX: J44.1 Chronic obstructive pulmonary disease with (acute) exacerbation (principal); J96.21 Acute and chronic respiratory failure with hypoxia; J18.0 Bronchopneumonia, unspecified organism; J12.1 Respiratory syncytial virus pneumonia; J96.22 Acute and chronic respiratory failure with hypercapnia; J20.9 Acute bronchitis, unspecified; J44.0 Chronic obstructive pulmonary disease with (acute) lower respiratory infection; F41.8 Other specified anxiety disorders; Z79.899 Other long term (current) drug therapy; G47.33 Obstructive sleep apnea (adult) (pediatric); J44.9 Chronic obstructive pulmonary disease, unspecified; G47.30 Sleep apnea, unspecified; M19.90 Unspecified osteoarthritis, unspecified site; F41.9 Anxiety disorder, unspecified; Z99.81 Dependence on supplemental oxygen
CPT/HCPCS: 36000; 36415; 36600; 71045; 71046; 80048; 80053; 82375; 82803; 82962; 83036; 83605; 83735; 85025; 85027; 87631; 93005; 93041; 94002; 94003; 94150; 94640; 94660; 94760; 94762; 96365; 96367; 96374; 96375; 99285; J0456; J0696; J1650; J2060; J2405; J2920; J2930; J7609; A9270-GY

== ENCOUNTER 2019-02-18 19:07 | Inpatient (IN) | payer MEDICARE ==
[2019-02-18] MEDS ORDERED: solu-MEDROL 125 MG IV ONE (19:27)
[2019-02-18] MEDS ORDERED: PROVENTIL 2.5 MG/3 ML NEB IH ONE (19:27)
[2019-02-18] MEDS ORDERED: MOTRIN 600 MG PO ONE (19:29)
[2019-02-18] MEDS ORDERED: Sodium Chloride 3 ML UD NEBULES IH ONE (19:33)
[2019-02-18] MEDS ORDERED: PROVENTIL Solution 2.5 MG/0.5 ML IH ONE (19:33)
--- NOTE | 2019-02-18 19:37 | ERPHSYRPT ---
- History of Present Illness Time Seen by Provider: 02/18/19 19:30 Source: patient Exam Limitations: clinical condition Patient Subjective Stated Complaint: pt states she has been short of breath since yesterday evening. states she had a temp today of 101 and cough that started approx 1 hour ago Triage Nursing Assessment: pt alert and oriented, asnwers questions approp. pt in per wheelchair, transfers to stretcher with minimal assist. pt short of breath with exertion. lung sounds dimisnished throughout. o2 on at 4l per nasal can as per home settings. skin warm and dry. Physician History: PATIENT WITH A HISTORY OF COPD, HOME OXYGEN DEPENDENT COMPLAINS OF A PRODUCTIVE COUGH, FEVER, DYSPNEA, EXERTIONAL DYSPNEA, NO RELIEF WITH NEBULIZERS OVER THE PAST 24 HOURS. DENIES CHEST PAIN, DIAPHORESIS OR PALPITATIONS. Timing/Duration: yesterday Activities at Onset: activity Severity of Dyspnea-Max: severe Severity of Dyspnea-Current: severe Possible Cause: occasional episodes Modifying Factors: Improves With: coughing, exertion Associated Symptoms: fever International travel in last 2 weeks: No Allergies/Adverse Reactions: modafinil [From Provigil] Allergy (Severe, Verified 02/18/19 19:18) suicidal tendencies codeine [Codeine] Allergy (Verified 02/18/19 19:18) levofloxacin [From Levaquin] Allergy (Verified 02/18/19 19:18) paroxetine [From Paxil] Allergy (Verified 02/18/19 19:18) tramadol Allergy (Verified 02/18/19 19:18) armodafinil [From Nuvigil] Adverse Reaction (Severe, Verified 02/18/19 19:18) suicidal tendencies fluticasone furoate [From Breo Ellipta] Adverse Reaction (Intermediate, Verified 02/18/19 19:18) full body tremors sertraline [From Zoloft] Adverse Reaction (Intermediate, Verified 02/18/19 19:18 ) full body tremors vilanterol [From Breo Ellipta] Adverse Reaction (Intermediate, Verified 19:18) full body tremors ciprofloxacin [From Cipro] Adverse Reaction (Verified 02/18/19 19:18) Leg pain Home Medications: Aspirin EC 81 mg [Ecotrin 81 mg] 81 mg PO 3XW 08/31/12 [History] Budesonide/Formoterol Fumarate [Symbicort 160-4.5 Mcg Inhaler] 10.2 gm IH DAILY 08/31/12 [History] Combivent Inhaler 2 puff PO Q4HPRN PRN 08/31/12 [History] Potassium Chloride 10 Meq Tab* [Klor Con 10 MEQ] 595 mg PO DAILY 08/31/12 [ History] Torsemide 20 mg PO DAILY 08/31/12 [History] Allopurinol 100 mg [Zyloprim 100 mg] 100 mg PO HS 10/23/18 [History] Magnesium Oxide [Magnesium] 400 mg PO DAILY 10/23/18 [History] Alprazolam 0.25 mg [xanAX 0.25 MG] 0.25 mg PO Q6HPRN PRN 02/18/19 [History ] Hx Tetanus, Diphtheria Vaccination/Date Given: Yes Hx Influenza Vaccination/Date Given: Yes Hx Pneumococcal Vaccination/Date Given: No Immunizations Up to Date: Yes - Review of Systems Constitutional: Fever Eyes: No Symptoms Ears, Nose, & Throat: No Symptoms Respiratory: Cough, Dyspnea, Dyspnea on Exertion (KING) Cardiac: No Symptoms, No Chest Pain, No Edema, No Syncope Abdominal/Gastrointestinal: No Symptoms, No Abdominal Pain, No Nausea, No Vomiting, No Diarrhea Genitourinary Symptoms: No Symptoms, No Dysuria Musculoskeletal: No Symptoms, No Back Pain, No Neck Pain Skin: No Rash Neurological: No Dizziness, No Focal Weakness, No Sensory Changes Psychological: No Symptoms Endocrine: No Symptoms All Other Systems: Reviewed and Negative - Past Medical History Pertinent Past Medical History: Yes Neurological History: No Pertinent History ENT History: No Pertinent History Cardiac History: No Pertinent History Respiratory History: COPD, Sleep Apnea, Other Endocrine Medical History: No Pertinent History Musculoskeletal History: Arthritis GI Medical History: No Pertinent History History: No Pertinent History Psycho-Social History: Anxiety Female Reproductive Disorders: No Pertinent History Other Medical History: NARCOLEPSY. RESTLESS LEG SYNDROME - Past Surgical History Past Surgical History: Yes Neuro Surgical History: No Pertinent History Cardiac: Cardiac Catheterization Respiratory: No Pertinent History Gastrointestinal: Appendectomy Genitourinary: No Pertinent History Musculoskeletal: Other Female Surgical History: Hysterectomy Other Surgical History: biopsy of lump from neck - Social History Smoking Status: Current every day smoker How long have you smoked: 47 years Exposure to second hand smoke: No Drug Use: none Patient Lives Alone: No - Nursing Vital Signs Nursing Vital Signs: Initial Vital Signs Temperature 97.9 F 02/18/19 19:08 Pulse Rate 107 H 02/18/19 19:08 Respiratory Rate 24 02/18/19 19:08 Blood Pressure 112/56 02/18/19 19:08 O2 Sat by Pulse Oximetry 89 L 02/18/19 19:08 Pain Scale Pain Intensity 6 - Physical Exam General Appearance: moderate distress, other (FAINT AUDIBLE WHEEZES) Eye Exam: PERRL/EOMI Ears, Nose, Throat Exam: hearing grossly normal Neck Exam: normal inspection Respiratory Exam: diminished breath sounds (MARKED, TERMINAL EXPIRATORY WHEEZES , POOR AIR EXCHANGE) Cardiovascular/Chest Exam: normal heart sounds, regular rate/rhythm Abdominal/Gastrointestinal Exam: soft, normal bowel sounds Extremity Exam: non-tender, normal range of motion, pedal edema (1+ PITTING EDEMA) Peripheral Pulses Exam: carotid (R): 2+, carotid (L): 2+, femoral (R): 2+, femoral (L): 2+, dorsalis-pedis (R): 2+, dorsalis-pedis (L): 2+ Neurologic Exam: alert, oriented x 3 Skin Exam: normal color, warm SpO2 Interpretation: borderline oxygenation SpO2: 91 O2 Delivery: Room Air - Course EKG Interpreted by Me: Sinus Rhythm, NORMAL AXIS (RATE 88), Non-specific ST Changes - Radiology Exams Chest X-ray Interpretation: Interpreted by me (HYPERVENTILATION, COPD NO INFILTRATES) Ordered Tests: Active Orders 24 hr Category Date Time Status Carburetor Repairer STAT Care 02/18/19 19:28 Active Clean Catch Urine Specimen STAT Care 02/18/19 19:27 Active EKG-ER Only STAT Care 02/18/19 19:27 Active IV Insertion STAT Care 02/18/19 19:27 Active Oxygen-ED Only Nasal Cannula 2 lpm Care 02/18/19 19:27 Active CHEST 1 VIEW (PORTABLE) Stat Exams 02/18/19 19:28 Taken BLOOD CULTURE Stat Lab 02/18/19 19:41 Received CBC W DIFF Stat Lab 02/18/19 19:40 Completed CMP Stat Lab 02/18/19 19:40 Completed Lactic Acid Stat Lab 02/18/19 19:27 Results Lactic Acid Stat Lab 02/18/19 19:31 Ordered MAGNESIUM Stat Lab 02/18/19 19:40 Completed NT PRO BNP Stat Lab 02/18/19 19:40 Completed PROTIME WITH INR Stat Lab 02/18/19 19:40 Completed TROPONIN Q3H Lab 02/18/19 19:30 Completed TROPONIN Q3H Lab 02/18/19 22:30 Ordered TROPONIN Q3H Lab 02/19/19 01:30 Ordered TROPONIN Q3H Lab 02/19/19 04:30 Ordered TROPONIN Q3H Lab 02/19/19 07:30 Ordered UA W/RFX UR CULTURE Stat Lab 02/18/19 20:44 Completed Respiratory Nebulizer STAT RT 02/18/19 19:29 Completed Respiratory Therapy Assessment UD RT 02/18/19 19:56 Active Medication Summary Generic Name Dose Route Start Last Admin Trade Name Freq PRN Reason Stop Dose Admin Sodium Chloride 1,000 mls @ 50 mls/hr 02/18/19 19:30 02/18/19 19:46 Sodium Chloride 0.9% 1000 Ml IV 03/20/19 19:29 50 mls/hr .Q20H [place] Administration Azithromycin 500 mg in 250 mls @ 250 mls/hr 02/18/19 20:12 02/18/19 20:58 Zithromax 500 Mg/ 250 Ml Nacl Premix IV 02/18/19 21:11 250 mls/hr STAT STA Administration Discontinued Medications Generic Name Dose Route Start Last Admin Trade Name Jackie PRN Reason Stop Dose Admin Albuterol Sulfate 10 mg 02/18/19 19:27 02/18/19 19:34 Proventil 2.5 Mg/3 Ml Neb IH 02/18/19 19:28 10 mg STAT ONE Administration Albuterol Sulfate Confirm 02/18/19 19:33 Proventil Solution 2.5 Mg/0.5 Ml Administered 02/18/19 19:34 Dose 10 mg IH .STK-MED ONE Ceftriaxone Sodium/Dextrose 1 g in 50 mls @ 100 mls/hr 02/18/19 20:12 20:25 Rocephin 1 Gm-D5w 50 Ml Bag IV 02/18/19 20:41 100 mls/hr STAT STA Administration Azithromycin Confirm 02/18/19 20:19 Zithromax 500 Mg/ 250 Ml Nacl Premix Administered 02/18/19 20:20 Dose 500 mg in 250 mls @ ud IV .STK-MED ONE Ceftriaxone Sodium/Dextrose Confirm 02/18/19 20:19 Rocephin 1 Gm-D5w 50 Ml Bag Administered 02/18/19 20:20 Dose 1 g in 50 mls @ ud IV .STK-MED ONE Ibuprofen 600 mg 02/18/19 19:29 02/18/19 19:46 Motrin 600 Mg PO 02/18/19 19:30 600 mg STAT ONE Administration Ibuprofen Confirm 02/18/19 19:38 Motrin 600 Mg Administered 02/18/19 19:39 Dose 600 mg .ROUTE .STK-MED ONE Methylprednisolone Sodium Succinate 125 mg 02/18/19 19:27 02/18/19 19:45 Solu-Medrol 125 Mg IV 02/18/19 19:28 125 mg STAT ONE Administration Methylprednisolone Sodium Succinate Confirm 02/18/19 19:38 Solu-Medrol 125 Mg Administered 02/18/19 19:39 Dose 125 mg .ROUTE .STK-MED ONE Sodium Chloride Confirm 02/18/19 19:33 Sodium Chloride 3 Ml Ud Nebules Administered 02/18/19 19:34 Dose 6 ml IH .STK-MED ONE Lab/Rad Data: Laboratory Result Diagrams 02/18/19 19:40 02/18/19 19:40 Laboratory Results 02/18/19 02/18/19 02/18/19 Range/Units 20:44 19:41 19:40 WBC (4.0-10.5) K/mm3 RBC (4.1-5.4) M/mm3 Hgb (12.0-16.0) gm/dl Hct (35-47) % MCV (78-100) fl MCH (26-32) pg MCHC (32-36) g/dl RDW (11.5-14.0) % Plt Count (150-450) K/mm3 MPV (6-9.5) fl Gran % (36.0-66.0) % Eos # (Auto) (0-0.5) Absolute Lymphs (auto) (1.0-4.6) Absolute Monos (auto) (0.0-1.3) Lymphocytes % (24.0-44.0) % Monocytes % (0.0-12.0) % Eosinophils % (0.00-5.0) % Basophils % (0.0-0.4) % Absolute Granulocytes (1.4-6.9) Basophils # (0-0.4) PT 11.8 (9.95-12.35) SECONDS INR 1.01 (0.8-3.0) Sodium (137-145) mmol/L Potassium (3.5-5.1) mmol/L Chloride (98-107) mmol/L Carbon Dioxide (22-30) mmol/L Anion Gap (5-15) MEQ/L BUN (7-17) mg/dL Creatinine (0.52-1.04) mg/dL Estimated GFR ML/MIN Glucose (74-106) mg/dL Lactic Acid (0.4-2.0) Calcium (8.4-10.2) mg/dL Magnesium (1.6-2.3) mg/dL Total Bilirubin (0.2-1.3) mg/dL AST (14-36) U/L ALT (0-35) U/L Alkaline Phosphatase (38-126) U/L Troponin I (0.000-0.034) ng/mL NT-Pro-B Natriuret Pep (0-900) pg/mL Serum Total Protein (6.3-8.2) g/dL Albumin (3.5-5.0) g/dL Urine Color YELLOW (YELLOW) Urine Appearance CLEAR (CLEAR) Urine pH 6.0 (5-6) Ur Specific [place] 1.009 (1.005-1.025) Urine Protein NEGATIVE (Negative) Urine Ketones NEGATIVE (NEGATIVE) Urine Blood NEGATIVE (0-5) Bert/ul Urine Nitrite NEGATIVE (NEGATIVE) Urine Bilirubin NEGATIVE (NEGATIVE) Urine Urobilinogen NEGATIVE (0-1) mg/dL Ur Leukocyte Esterase NEGATIVE (NEGATIVE) Urine WBC (Auto) NONE (0-5) /HPF Urine RBC (Auto) NONE (0-2) /HPF U Epithel Cells (Auto) RARE (FEW) /HPF Urine Bacteria (Auto) NONE SEEN (NEGATIVE) /HPF Urine Culture Reflexed NO (NO) Urine Glucose NEGATIVE (NEGATIVE) mg/dL Influenza Type A Ag NEGATIVE (NEGATIVE) Influenza Type B Ag NEGATIVE (NEGATIVE) RSV (PCR) NEGATIVE (Negative) 02/18/19 02/18/1919 Range/Units 19:40 19:40 19:30 WBC 13.0 H (4.0-10.5) K/mm3 RBC 3.68 L (4.1-5.4) M/mm3 Hgb 12.8 (12.0-16.0) gm/dl Hct 37.6 (35-47) % MCV 102.2 H (78-100) fl MCH 34.7 H (26-32) pg MCHC 34.0 (32-36) g/dl RDW 13.8 (11.5-14.0) % Plt Count 322 (150-450) K/mm3 MPV 9.0 (6-9.5) fl Gran % 79.4 H (36.0-66.0) % Eos # (Auto) 0.02 (0-0.5) Absolute Lymphs (auto) 1.57 (1.0-4.6) Absolute Monos (auto) 1.05 (0.0-1.3) Lymphocytes % 12.1 L (24.0-44.0) % Monocytes % 8.1 (0.0-12.0) % Eosinophils % 0.2 (0.00-5.0) % Basophils % 0.2 (0.0-0.4) % Absolute Granulocytes 10.35 H (1.4-6.9) Basophils # 0.03 (0-0.4) PT (9.95-12.35) SECONDS INR (0.8-3.0) Sodium 138 (137-145) mmol/L Potassium 4.0 (3.5-5.1) mmol/L Chloride 95 L (98-107) mmol/L Carbon Dioxide 35 H (22-30) mmol/L Anion Gap 12.1 (5-15) MEQ/L BUN 16 (7-17) mg/dL Creatinine 1.08 H (0.52-1.04) mg/dL Estimated GFR 54.3 ML/MIN Glucose 122 H (74-106) mg/dL Lactic Acid (0.4-2.0) Calcium 9.4 (8.4-10.2) mg/dL Magnesium 2.0 (1.6-2.3) mg/dL Total Bilirubin 0.60 (0.2-1.3) mg/dL AST 22 (14-36) U/L ALT 20 (0-35) U/L Alkaline Phosphatase 127 H (38-126) U/L Troponin I < 0.012 (0.000-0.034) ng/mL NT-Pro-B Natriuret Pep 58.6 (0-900) pg/mL Serum Total Protein 7.6 (6.3-8.2) g/dL Albumin 4.2 (3.5-5.0) g/dL Urine Color (YELLOW) Urine Appearance (CLEAR) Urine pH (5-6) Ur Specific [place] (1.005-1.025) Urine Protein (Negative) Urine Ketones (NEGATIVE) Urine Blood (0-5) Bert/ul Urine Nitrite (NEGATIVE) Urine Bilirubin (NEGATIVE) Urine Urobilinogen (0-1) mg/dL Ur Leukocyte Esterase (NEGATIVE) Urine WBC (Auto) (0-5) /HPF Urine RBC (Auto) (0-2) /HPF U Epithel Cells (Auto) (FEW) /HPF Urine Bacteria (Auto) (NEGATIVE) /HPF Urine Culture Reflexed (NO) Urine Glucose (NEGATIVE) mg/dL Influenza Type A Ag (NEGATIVE) Influenza Type B Ag (NEGATIVE) RSV (PCR) (Negative) 02/18/19 Range/Units 19:27 WBC (4.0-10.5) K/mm3 RBC (4.1-5.4) M/mm3 Hgb (12.0-16.0) gm/dl Hct (35-47) % MCV (78-100) fl MCH (26-32) pg MCHC (32-36) g/dl RDW (11.5-14.0) % Plt Count (150-450) K/mm3 MPV (6-9.5) fl Gran % (36.0-66.0) % Eos # (Auto) (0-0.5) Absolute Lymphs (auto) (1.0-4.6) Absolute Monos (auto) (0.0-1.3) Lymphocytes % (24.0-44.0) % Monocytes % (0.0-12.0) % Eosinophils % (0.00-5.0) % Basophils % (0.0-0.4) % Absolute Granulocytes (1.4-6.9) Basophils # (0-0.4) PT (9.95-12.35) SECONDS INR (0.8-3.0) Sodium (137-145) mmol/L Potassium (3.5-5.1) mmol/L Chloride (98-107) mmol/L Carbon Dioxide (22-30) mmol/L Anion Gap (5-15) MEQ/L BUN (7-17) mg/dL Creatinine (0.52-1.04) mg/dL Estimated GFR ML/MIN Glucose (74-106) mg/dL Lactic Acid 2.2 H (0.4-2.0) Calcium (8.4-10.2) mg/dL Magnesium (1.6-2.3) mg/dL Total Bilirubin (0.2-1.3) mg/dL AST (14-36) U/L ALT (0-35) U/L Alkaline Phosphatase (38-126) U/L Troponin I (0.000-0.034) ng/mL NT-Pro-B Natriuret Pep (0-900) pg/mL Serum Total Protein (6.3-8.2) g/dL Albumin (3.5-5.0) g/dL Urine Color (YELLOW) Urine Appearance (CLEAR) Urine pH (5-6) Ur Specific Hardin (1.005-1.025) Urine Protein (Negative) Urine Ketones (NEGATIVE) Urine Blood (0-5) Bert/ul Urine Nitrite (NEGATIVE) Urine Bilirubin (NEGATIVE) Urine Urobilinogen (0-1) mg/dL Ur Leukocyte Esterase (NEGATIVE) Urine WBC (Auto) (0-5) /HPF Urine RBC (Auto) (0-2) /HPF U Epithel Cells (Auto) (FEW) /HPF Urine Bacteria (Auto) (NEGATIVE) /HPF Urine Culture Reflexed (NO) Urine Glucose (NEGATIVE) mg/dL Influenza Type A Ag (NEGATIVE) Influenza Type B Ag (NEGATIVE) RSV (PCR) (Negative) - Progress Progress: re-examined Air Movement: fair Progress Note: 02/18/19 20:10 IV NORMAL SALINE 50ML/HR, ALBUTEROL AEROSOL 10MG OVER 1 HOUR, SOLUMEDROL 125MG IV, AFTER 2 SETS OF BLOOD CULTURES ROCEPHIN 1GM, ZITHROMAX 500MG IVPB, LACTIC ACID 2.2, DID NOT PLACE ON SEPSIS PROTOCOL DUE TO DEPENDENT EDEMA CHF 02/18/19 21:00, MINIMAL IMPROVEMENT IN AIR EXCHANGE AFTER AEROSOL TREATMENT Discussed with : Josep Will see patient in: hospital (observation) (DISCUSSED WITH DR BENNETT AT 2100 FOR OBSERVATION) - Departure Departure Disposition: Observation Clinical Impression: ACUTE EXACERBATION COPD Condition: Stable Critical Care Time: No Referrals: URSZULA BENNETT MD [Primary Care Provider] -
[2019-02-18] MEDS ORDERED: solu-MEDROL 125 MG ONE (19:38)
[2019-02-18] MEDS ORDERED: MOTRIN 600 MG ONE (19:38)
[2019-02-18 19:43] LABS: Lactic Acid 2.2 (0.4-2.0)
[2019-02-18 19:45] LABS: BASOPHIL % 0.2 % (0.0-0.4); Basophil (Absolute #) 0.03 (0-0.4); Eosinophil % 0.2 % (0.00-5.0); Eosinophil (Absolute #) 0.02 (0-0.5); Granulocyte Absolute (ANC) 10.35 (1.4-6.9); Granulocytes % 79.4 % (36.0-66.0); Hematocrit 37.6 % (35-47); Hemoglobin 12.8 gm/dl (12.0-16.0); Lymphocyte (Absolute #) 1.57 (1.0-4.6); Lymphocytes % 12.1 % (24.0-44.0); Mean Cell Volume 102.2 fl (78-100); Monocyte (Absolute #) 1.05 (0.0-1.3); Monocytes % 8.1 % (0.0-12.0); Platelet Count 322 K/mm3 (150-450); Red Blood Count 3.68 M/mm3 (4.1-5.4); Red Cell Distribution Width 13.8 % (11.5-14.0)
[2019-02-18] MEDS: Sodium Chloride 0.9% 1000 ML 1,000 ML IV SCH (19:46)
[2019-02-18 19:52] LABS: Mean Corpuscular Hemoglobin 34.7 pg (26-32)
[2019-02-18 19:53] LABS: INR 1.01 (0.8-3.0); PROTIME 11.8 SECONDS (9.95-12.35)
[2019-02-18 20:07] LABS: ALBUMIN 4.2 g/dL (3.5-5.0); ANION GAP 12.1 MEQ/L (5-15); BILIRUBIN,TOTAL 0.6 mg/dL (0.2-1.3); Calcium 9.4 mg/dL (8.4-10.2); Creatinine 1 1.08 mg/dL (0.52-1.04); NT PRO BNP 58.6 pg/mL (0-900); Total Protein 7.6 g/dL (6.3-8.2)
[2019-02-18] MEDS ORDERED: Zithromax 500 MG/ 250 ML NaCl Premix 500 MG/250 ML IVPB IV STA (20:12)
[2019-02-18] MEDS ORDERED: ROCEPHIN 1 Gm-D5w 50 ml Bag** 1 G/50 ML IVPB IV STA (20:12)
[2019-02-18 20:16] LABS: INFLUENZA A NEGATIVE (NEGATIVE); INFLUENZA B NEGATIVE (NEGATIVE); RESPIRATORY SYNCTIAL VIRUS NEGATIVE (Negative)
[2019-02-18] MEDS ORDERED: Zithromax 500 MG/ 250 ML NaCl Premix 500 MG/250 ML IVPB IV ONE (20:19)
[2019-02-18] MEDS ORDERED: ROCEPHIN 1 Gm-D5w 50 ml Bag** 1 G/50 ML IVPB IV ONE (20:19)
[2019-02-18 20:52] LABS: Appearance CLEAR (CLEAR); Bilirubin NEGATIVE (NEGATIVE); Blood NEGATIVE Ery/ul (0-5); Epithelial Cells RARE /HPF (FEW); Glucose NEGATIVE (NEGATIVE); Ketones NEGATIVE (NEGATIVE); Leukocyte Esterase NEGATIVE (NEGATIVE); Nitrite NEGATIVE (NEGATIVE); Protein,Urine Dip NEGATIVE (Negative); Specific Gravity 1.009 (1.005-1.025); Urobilinogen NEGATIVE mg/dL (0-1)
[2019-02-18 20:55] LABS: Bacteria NONE SEEN /HPF (NEGATIVE)
--- NOTE | 2019-02-18 21:57 | XRAY ---
Indication: Dyspnea. Comparison: December 06, 2018. Portable chest remains hyperinflated and clear. Heart and mediastinal structures within normal limits. Bony thorax intact. No new/acute findings.
[2019-02-18] MEDS: DUONEB 0.5-3 MG/3 ml Neb IH SCH (22:47)
[2019-02-18] MEDS: PULMICORT 0.5 MG/2 ML RESPULES IH SCH (22:48)
[2019-02-19] MEDS ORDERED: DUONEB 0.5-3 MG/3 ml Neb IH ONE ×2 (03:03→06:51)
[2019-02-19] MEDS: DUONEB 0.5-3 MG/3 ml Neb IH SCH ×6 (03:18→23:08)
[2019-02-19] MEDS: xanAX 0.25 MG PO SCH ×5 (05:01→21:36)
[2019-02-19] MEDS: PULMICORT 0.5 MG/2 ML RESPULES IH SCH ×2 (07:18→18:54)
[2019-02-19] MEDS: Protonix 40MG Tablet PO SCH (10:44)
[2019-02-19] MEDS: MAG-OX 400 PO SCH (10:44)
--- NOTE | 2019-02-19 11:59 | PCM.HP ---
History of Present Illness - Chief Complaint Chief Complaint: Shortness of Breath for 3 days History of Present Illness: is a 63 year old female.patient states she has been short of breath since yesterday evening. states she had a temp today of 101 and cough that started approximately 1 hour ago - Review of Systems Constitutional: Fever, Chills, Fatigue Eyes: No Symptoms Ears, Nose, & Throat: No Symptoms Respiratory: Cough, Orthopnea, Short Of Breath Cardiac: No Chest Pain, No Edema, No Syncope Abdominal/Gastrointestinal: No Abdominal Pain, No Nausea, No Vomiting, No Diarrhea Genitourinary Symptoms: No Dysuria Musculoskeletal: No Back Pain, No Neck Pain Skin: No Rash Neurological: No Dizziness, No Focal Weakness, No Sensory Changes Psychological: No Symptoms Endocrine: No Symptoms Hematologic/Lymphatic: No Symptoms Immunological/Allergic: No Symptoms Medications & Allergies Home Medications: Home Medication List Aspirin EC 81 mg [Ecotrin 81 mg] 81 mg PO 3XW 08/31/12 [History Confirmed 02/19/19] Budesonide/Formoterol Fumarate [Symbicort 160-4.5 Mcg Inhaler] 10.2 gm IH DAILY 08/31/12 [History Confirmed 02/19/19] Combivent Inhaler 2 puff PO Q4HPRN PRN 08/31/12 [History Confirmed 02/19/19] Potassium Chloride 10 Meq Tab* [Klor Con 10 MEQ] 595 mg PO DAILY 08/31/12 [ History Confirmed 02/19/19] Torsemide 20 mg PO DAILY 08/31/12 [History Confirmed 02/19/19] Allopurinol 100 mg [Zyloprim 100 mg] 100 mg PO HS 10/23/18 [History Confirmed 02/19/19] Magnesium Oxide [Magnesium] 400 mg PO DAILY 10/23/18 [History Confirmed 02/19/19 ] PANTOPRAZOLE 40 mg Tablet [Protonix 40MG Tablet] 40 mg PO DAILY tab 10/27 [Rx Confirmed 02/19/19] Tiotropium [place] Inhaler [Spiriva 18 Mcg/Cap Inhaler] 1 ea IH QPM inh 10/27/18 [Rx Confirmed 02/19/19] Alprazolam 0.25 mg [xanAX 0.25 MG] 0.25 mg PO Q6HPRN PRN 02/18/19 [ History Confirmed 02/19/19] Allergies/Adverse Reactions: Allergies Allergy/AdvReac Type Severity Reaction Status Date / Time modafinil [From Provigil] Allergy Severe Verified 02/19/19 11:58 codeine [Codeine] Allergy Verified 02/19/19 11:58 levofloxacin [From Levaquin] Allergy Verified 02/19/19 11:58 paroxetine [From Paxil] Allergy Verified 02/19/19 11:58 tramadol Allergy Verified 02/19/19 11:58 armodafinil [From Nuvigil] AdvReac Severe Verified 02/19/19 11:58 fluticasone furoate AdvReac Intermediate Verified 02/19/19 11:58 [From Breo Ellipta] sertraline [From Zoloft] AdvReac Intermediate Verified 02/19/19 11:58 vilanterol AdvReac Intermediate Verified 02/19/19 11:58 [From Breo Ellipta] ciprofloxacin [From Cipro] AdvReac Verified 02/19/19 11:58 - Past Medical History Past Medical History: Yes Neurological History: No Pertinent History ENT History: No Pertinent History Cardiac History: No Pertinent History Respiratory History: COPD, Sleep Apnea, Other Endocrine Medical History: No Pertinent History Musculoskelatal History: Arthritis GI Medical History: No Pertinent History History: No Pertinent History Pyscho-Social History: Anxiety Reproductive Disorders: No Pertinent History Comment: NARCOLEPSY. RESTLESS LEG SYNDROME - Female History Are you now?: No - Past Surgical History Past Surgical History: Yes Neuro Surgical History: No Pertinent History Cardiac History: Cardiac Catheterization Respiratory Surgery: No Pertinent History GI Surgical History: Appendectomy Genitourinary Surgical Hx: No Pertinent History Musculskeletal Surgical Hx: Other Female Surgical History: Hysterectomy Other Surgical History: biopsy of lump from neck - Social History Smoking Status: Current every day smoker How long have you smoked: 47 years Exposure to second hand smoke: No Alcohol: Rarely Drug Use: none - Physical Exam Vital Signs: Vital Signs - 24 hr Temp Pulse Resp BP Pulse Ox 02/19/19 11:52 20 02/19/19 10:56 89 20 88 L 02/19/19 08:00 20 02/19/19 07:46 97.7 F 77 20 133/62 91 L 02/19/19 07:21 75 18 91 L 02/19/19 04:00 89 18 118/57 90 L 02/19/19 03:24 70 18 92 L 02/19/19 00:00 98.3 F 87 19 91/53 94 L 02/18/19 23:04 44 L 18 93 L 02/18/19 22:57 98.3 F 87 19 91/53 94 L 02/18/19 22:09 98.3 F 87 19 91/53 94 L 02/18/19 21:02 86 22 113/50 94 L 02/18/19 21:01 91 L 02/18/19 20:40 98 H 22 100/62 92 L 02/18/19 19:57 88 20 102/56 94 L 02/18/19 19:56 90 20 90 L 02/18/19 19:08 97.9 F 107 H 24 112/56 91 L Oxygen-Last 24 hours O2 Percentage 4 Liters = 36% O2 Percentage 4 Liters = 36% O2 Percentage 4 Liters = 36% O2 Percentage 4 Liters = 36% O2 Percentage 4 Liters = 36% O2 Percentage 4 Liters = 36% O2 Percentage 4 Liters = 36% O2 Percentage 4 Liters = 36% General Appearance: no apparent distress, alert Neurologic Exam: alert, oriented x 3, cooperative, normal mood/affect, nml cerebellar function, nml station & gait, sensation nml, No motor deficits Eye Exam: PERRL/EOMI, eyes nml inspection Ears, Nose, Throat Exam: normal ENT inspection, TMs normal, pharynx normal, moist mucous membranes Neck Exam: normal inspection, non-tender, supple, full range of motion Respiratory Exam: diminished breath sounds, prolonged expirations, crackles/ rales, rhonchi, wheezing, No respiratory distress Cardiovascular Exam: regular rate/rhythm, normal heart sounds, normal peripheral pulses Gastrointestinal/Abdomen Exam: soft, normal bowel sounds, No tenderness, No mass Back Exam: normal inspection, normal range of motion, No CVA tenderness, No vertebral tenderness Extremity Exam: normal inspection, normal range of motion, pelvis stable Skin Exam: normal color, warm, dry, No rash Lymphatic Exam: No adenopathy Results - Labs Lab/Micro Results: Lab Results-Last 24 Hours 02/18/19 02/18/1902/18/19 Range/Units 19:27 19:30 19:40 WBC 13.0 H (4.0-10.5) K/mm3 RBC 3.68 L (4.1-5.4) M/mm3 Hgb 12.8 (12.0-16.0) gm/dl Hct 37.6 (35-47) % MCV 102.2 H (78-100) fl MCH 34.7 H (26-32) pg MCHC 34.0 (32-36) g/dl RDW 13.8 (11.5-14.0) % Plt Count 322 (150-450) K/mm3 MPV 9.0 (6-9.5) fl Gran % 79.4 H (36.0-66.0) % Eos # (Auto) 0.02 (0-0.5) Absolute Lymphs (auto) 1.57 (1.0-4.6) Absolute Monos (auto) 1.05 (0.0-1.3) Lymphocytes % 12.1 L (24.0-44.0) % Monocytes % 8.1 (0.0-12.0) % Eosinophils % 0.2 (0.00-5.0) % Basophils % 0.2 (0.0-0.4) % Absolute Granulocytes 10.35 H (1.4-6.9) Basophils # 0.03 (0-0.4) PT (9.95-12.35) SECONDS INR (0.8-3.0) Sodium (137-145) mmol/L Potassium (3.5-5.1) mmol/L Chloride (98-107) mmol/L Carbon Dioxide (22-30) mmol/L Anion Gap (5-15) MEQ/L BUN (7-17) mg/dL Creatinine (0.52-1.04) mg/dL Estimated GFR ML/MIN Glucose (74-106) mg/dL Lactic Acid 2.2 H (0.4-2.0) Calcium (8.4-10.2) mg/dL Magnesium (1.6-2.3) mg/dL Total Bilirubin (0.2-1.3) mg/dL AST (14-36) U/L ALT (0-35) U/L Alkaline Phosphatase (38-126) U/L Troponin I < 0.012 (0.000-0.034) ng/mL NT-Pro-B Natriuret Pep (0-900) pg/mL Serum Total Protein (6.3-8.2) g/dL Albumin (3.5-5.0) g/dL Urine Color (YELLOW) Urine Appearance (CLEAR) Urine pH (5-6) Ur Specific [place] (1.005-1.025) Urine Protein (Negative) Urine Ketones (NEGATIVE) Urine Blood (0-5) Bert/ul Urine Nitrite (NEGATIVE) Urine Bilirubin (NEGATIVE) Urine Urobilinogen (0-1) mg/dL Ur Leukocyte Esterase (NEGATIVE) Urine WBC (Auto) (0-5) /HPF Urine RBC (Auto) (0-2) /HPF U Epithel Cells (Auto) (FEW) /HPF Urine Bacteria (Auto) (NEGATIVE) /HPF Urine Culture Reflexed (NO) Urine Glucose (NEGATIVE) mg/dL Influenza Type A Ag (NEGATIVE) Influenza Type B Ag (NEGATIVE) RSV (PCR) (Negative) 02/18/19 02/18/19 02/18/19 Range/Units 19:40 19:40 19:41 WBC (4.0-10.5) K/mm3 RBC (4.1-5.4) M/mm3 Hgb (12.0-16.0) gm/dl Hct (35-47) % MCV (78-100) fl MCH (26-32) pg MCHC (32-36) g/dl RDW (11.5-14.0) % Plt Count (150-450) K/mm3 MPV (6-9.5) fl Gran % (36.0-66.0) % Eos # (Auto) (0-0.5) Absolute Lymphs (auto) (1.0-4.6) Absolute Monos (auto) (0.0-1.3) Lymphocytes % (24.0-44.0) % Monocytes % (0.0-12.0) % Eosinophils % (0.00-5.0) % Basophils % (0.0-0.4) % Absolute Granulocytes (1.4-6.9) Basophils # (0-0.4) PT 11.8 (9.95-12.35) SECONDS INR 1.01 (0.8-3.0) Sodium 138 (137-145) mmol/L Potassium 4.0 (3.5-5.1) mmol/L Chloride 95 L (98-107) mmol/L Carbon Dioxide 35 H (22-30) mmol/L Anion Gap 12.1 (5-15) MEQ/L BUN 16 (7-17) mg/dL Creatinine 1.08 H (0.52-1.04) mg/dL Estimated GFR 54.3 ML/MIN Glucose 122 H (74-106) mg/dL Lactic Acid (0.4-2.0) Calcium 9.4 (8.4-10.2) mg/dL Magnesium 2.0 (1.6-2.3) mg/dL Total Bilirubin 0.60 (0.2-1.3) mg/dL AST 22 (14-36) U/L ALT 20 (0-35) U/L Alkaline Phosphatase 127 H (38-126) U/L Troponin I (0.000-0.034) ng/mL NT-Pro-B Natriuret Pep 58.6 (0-900) pg/mL Serum Total Protein 7.6 (6.3-8.2) g/dL Albumin 4.2 (3.5-5.0) g/dL Urine Color (YELLOW) Urine Appearance (CLEAR) Urine pH (5-6) Ur Specific [place] (1.005-1.025) Urine Protein (Negative) Urine Ketones (NEGATIVE) Urine Blood (0-5) Bert/ul Urine Nitrite (NEGATIVE) Urine Bilirubin (NEGATIVE) Urine Urobilinogen (0-1) mg/dL Ur Leukocyte Esterase (NEGATIVE) Urine WBC (Auto) (0-5) /HPF Urine RBC (Auto) (0-2) /HPF U Epithel Cells (Auto) (FEW) /HPF Urine Bacteria (Auto) (NEGATIVE) /HPF Urine Culture Reflexed (NO) Urine Glucose (NEGATIVE) mg/dL Influenza Type A Ag NEGATIVE (NEGATIVE) Influenza Type B Ag NEGATIVE (NEGATIVE) RSV (PCR) NEGATIVE (Negative) 02/18/19 Range/Units 20:44 WBC (4.0-10.5) K/mm3 RBC (4.1-5.4) M/mm3 Hgb (12.0-16.0) gm/dl Hct (35-47) % MCV (78-100) fl MCH (26-32) pg MCHC (32-36) g/dl RDW (11.5-14.0) % Plt Count (150-450) K/mm3 MPV (6-9.5) fl Gran % (36.0-66.0) % Eos # (Auto) (0-0.5) Absolute Lymphs (auto) (1.0-4.6) Absolute Monos (auto) (0.0-1.3) Lymphocytes % (24.0-44.0) % Monocytes % (0.0-12.0) % Eosinophils % (0.00-5.0) % Basophils % (0.0-0.4) % Absolute Granulocytes (1.4-6.9) Basophils # (0-0.4) PT (9.95-12.35) SECONDS INR (0.8-3.0) Sodium (137-145) mmol/L Potassium (3.5-5.1) mmol/L Chloride (98-107) mmol/L Carbon Dioxide (22-30) mmol/L Anion Gap (5-15) MEQ/L BUN (7-17) mg/dL Creatinine (0.52-1.04) mg/dL Estimated GFR ML/MIN Glucose (74-106) mg/dL Lactic Acid (0.4-2.0) Calcium (8.4-10.2) mg/dL Magnesium (1.6-2.3) mg/dL Total Bilirubin (0.2-1.3) mg/dL AST (14-36) U/L ALT (0-35) U/L Alkaline Phosphatase (38-126) U/L Troponin I (0.000-0.034) ng/mL NT-Pro-B Natriuret Pep (0-900) pg/mL Serum Total Protein (6.3-8.2) g/dL Albumin (3.5-5.0) g/dL Urine Color YELLOW (YELLOW) Urine Appearance CLEAR (CLEAR) Urine pH 6.0 (5-6) Ur Specific [place] 1.009 (1.005-1.025) Urine Protein NEGATIVE (Negative) Urine Ketones NEGATIVE (NEGATIVE) Urine Blood NEGATIVE (0-5) Bert/ul Urine Nitrite NEGATIVE (NEGATIVE) Urine Bilirubin NEGATIVE (NEGATIVE) Urine Urobilinogen NEGATIVE (0-1) mg/dL Ur Leukocyte Esterase NEGATIVE (NEGATIVE) Urine WBC (Auto) NONE (0-5) /HPF Urine RBC (Auto) NONE (0-2) /HPF U Epithel Cells (Auto) RARE (FEW) /HPF Urine Bacteria (Auto) NONE SEEN (NEGATIVE) /HPF Urine Culture Reflexed NO (NO) Urine Glucose NEGATIVE (NEGATIVE) mg/dL Influenza Type A Ag (NEGATIVE) Influenza Type B Ag (NEGATIVE) RSV (PCR) (Negative) - Radiology Impressions Radiology Exams & Impressions: Radiology Procedures Category Date Time Status CHEST 1 VIEW (PORTABLE) Stat Exams 02/18/19 19:28 Completed Comparison: December 06, 2018. Portable chest remains hyperinflated and clear. Heart and mediastinal structures within normal limits. Bony thorax intact. No new/acute findings. - Other Procedures and Tests Respiratory Therapy 02/18/19 21:02 Oxygen Nasal Cannula 2 lpm 02/18/19 23:04 BiPap/CPAP QHS 02/19/19 07:00 Respiratory Therapy Assessment DAILY 02/19/19 07:18 Peak Expiratory Flow Rate ONCE Assessment/Plan (1) COPD exacerbation Current Visit: Yes Status: Resolved Onset Date: ~10/23/18 Assessment & Plan: Last Vital Signs Temp 97.1 F 02/20/19 07:47 Pulse 91 H 02/20/19 07:47 Resp 20 02/20/19 07:47 BP 140/76 02/20/19 07:47 Pulse Ox 99 02/20/19 07:47 Allergies modafinil [From Provigil] Allergy (Severe, Verified 02/19/19 11:58) suicidal tendencies codeine [Codeine] Allergy (Verified 02/19/19 11:58) levofloxacin [From Levaquin] Allergy (Verified 02/19/19 11:58) paroxetine [From Paxil] Allergy (Verified 02/19/19 11:58) tramadol Allergy (Verified 02/19/19 11:58) armodafinil [From Nuvigil] Adverse Reaction (Severe, Verified 02/19/19 11:58) suicidal tendencies fluticasone furoate [From Breo Ellipta] Adverse Reaction (Intermediate, Verified 02/19/19 11:58) full body tremors sertraline [From Zoloft] Adverse Reaction (Intermediate, Verified 02/19/19 11:58 ) full body tremors vilanterol [From Breo Ellipta] Adverse Reaction (Intermediate, Verified 11:58) full body tremors ciprofloxacin [From Cipro] Adverse Reaction (Verified 02/19/19 11:58) Leg pain Active Medications Acetaminophen (Tylenol 325 Mg) 650 mg PO Q4H PRN PRN PRN Reason: PAIN AND/OR FEVER Stop: 03/22/19 02:25 Last Admin: 02/20/19 02:30 Dose: 650 mg Albuterol/Ipratropium (Duoneb 0.5-3 Mg/3 Ml Neb) 3 ml IH Q4HRT [place] Stop: 03/20/19 22:59 Last Admin: 02/20/19 07:21 Dose: 3 ml Allopurinol (Zyloprim 100 Mg) 100 mg PO HS [facility] Stop: 03/21/19 21:59 Last Admin: 02/19/19 21:36 Dose: 100 mg Alprazolam (Xanax 0.25 Mg) 0.25 mg PO QID [place] Stop: 03/20/19 21:59 Last Admin: 02/19/19 21:36 Dose: 0.25 mg Aspirin (Ecotrin 81 Mg) 81 mg PO 3XW [place] Stop: 03/21/19 12:29 Budesonide (Pulmicort 0.5 Mg/2 Ml Respules) 0.5 mg IH BID [place] Stop: 03/20/19 21:59 Last Admin: 02/20/19 07:24 Dose: 0.5 mg Sodium Chloride (Sodium Chloride 0.9% 1000 Ml) 1,000 mls @ 50 mls/hr IV .Q20H [place] Stop: 03/20/19 19:29 Last Admin: 02/19/19 16:51 Dose: 50 mls/hr Azithromycin (Zithromax 500 Mg/ 250 Ml Nacl Premix) 500 mg in 250 mls @ 250 mls /hr IV Q24H22 [place] Stop: 03/21/19 21:59 Last Admin: 02/19/19 22:41 Dose: 250 mls/hr Ceftriaxone Sodium/Dextrose (Rocephin 1 Gm-D5w 50 Ml Bag) 1 g in 50 mls @ 100 mls/hr IV Q24H22 [place] Stop: 03/21/19 21:59 Last Admin: 02/19/19 21:36 Dose: 100 mls/hr Levalbuterol HCl (Xopenex 1.25 Mg/0.5 Ml Ud Nebule) 1.25 mg IH Q2HPRN PRN PRN Reason: DYSPNEA Stop: 03/20/19 21:03 Last Admin: 02/20/19 01:50 Dose: 1.25 mg Magnesium Oxide (Mag-Ox 400) 400 mg PO DAILY [place] Stop: 03/21/19 09:59 Last Admin: 02/19/19 10:44 Dose: 400 mg Ondansetron HCl (Zofran 4 Mg/2 Ml Vial) 4 mg IV Q6H PRN PRN PRN Reason: NAUSEA/VOMITING Stop: 03/22/19 02:25 Last Admin: 02/20/19 02:37 Dose: 4 mg Pantoprazole Sodium (Protonix 40mg Tablet) 40 mg PO DAILY [facility] Stop: 03/21/19 09:59 Last Admin: 02/19/19 10:44 Dose: 40 mg Potassium Chloride (Klor Con 10 Meq) 10 meq PO DAILY [facility] Stop: 03/21/19 12:29 Last Admin: 02/19/19 13:17 Dose: 10 meq Fluticasone/Salmeterol (Advair Hfa 115/21 Common Canister*) 2 puff IH BIDRT [facility] Stop: 03/21/19 18:59 Last Admin: 02/19/19 23:08 Dose: 2 puff Tiotropium [place] (Spiriva 18 Mcg/Cap Inhaler) 1 ea IH QPM [place] Stop: 03/21/19 21:59 Last Admin: 02/19/19 23:10 Dose: 1 ea Torsemide (Demadex 20 Mg) 20 mg PO DAILY [facility] Stop: 03/21/19 12:29 Last Admin: 02/19/19 13:16 Dose: 20 mg Intake & Output 02/19/19 02/20/19 11:59 11:59 Intake Total 120 2192 Output Total 350 Balance 120 1842 Weight 94.6 kg Orders 02/19/19 07:00 Respiratory Therapy Assessment DAILY 02/19/19 07:18 Peak Expiratory Flow Rate ONCE 02/19/19 12:30 Aspirin EC 81 mg [Ecotrin 81 mg] 81 mg PO 3XW Potassium Chloride 10 Meq Tab* [Klor Con 10 MEQ] 10 meq PO DAILY Torsemide 20 mg [Demadex 20 mg] 20 mg PO DAILY 02/19/19 19:00 Fluticasone/Salmeterol 115/21 [Advair Hfa 115/21 Common canister*] 2 puff IH BIDRT 02/19/19 22:00 Allopurinol 100 mg [Zyloprim 100 mg] 100 mg PO HS Tiotropium [place] Inhaler [Spiriva 18 Mcg/Cap Inhaler] 1 ea IH QPM 02/20/19 02:26 Acetaminophen 325 mg [Tylenol 325 mg] 650 mg PO Q4H PRN PRN Ondansetron HCl 4 mg/2 ml [Zofran 4 MG/2 ML VIAL] 4 mg IV Q6H PRN PRN 02/20/19 08:00 ABG [ARTERIAL BLOOD GASES] Routine Lab Tests 02/20/19 03:55 Puncture Site LEFT RADIAL pCO2 109 H* pO2 189 H* Base Excess 4.7 H O2 Saturation 97.1 ABG pH 7.14 L* ABG HCO3 37.1 H* ABG O2 Sat (Measured) 99.6 Alexey Test YES A-a Gradient -69 a/A Ratio 1.58 Hemoglobin 12.5 Carboxyhemoglobin 1.6 Methemoglobin 0.9 L Potassium 4.5 Temperature 37.0 POC O2 Flow Rate 36 Code(s): J44.1 - CHRONIC OBSTRUCTIVE PULMONARY DISEASE W (ACUTE) EXACERBATION (2) Respiratory failure with hypoxia and hypercapnia Current Visit: Yes Status: Acute Qualifiers: Chronicity: acute on chronic Assessment & Plan: continue CPAP Code(s): J96.91 - RESPIRATORY FAILURE, UNSPECIFIED WITH HYPOXIA; J96.92 - RESPIRATORY FAILURE, UNSPECIFIED WITH HYPERCAPNIA (3) Respiratory failure, [id number] Current Visit: Yes Status: Acute Onset Date: ~10/24/18 Qualifiers: Respiratory failure complication: hypoxia and hypercapnia Qualified Code(s) : J96.21 - Acute and chronic respiratory failure with hypoxia; J96.22 - Acute and chronic respiratory failure with hypercapnia Code(s): J96.20 - ACUTE AND CHR RESP FAILURE, UNSP W HYPOXIA OR HYPERCAPNIA
[2019-02-19] MEDS ORDERED: ECOTRIN 81 MG PO SCH (12:30)
[2019-02-19] MEDS: DEMADEX 20 MG PO SCH (13:16)
[2019-02-19] MEDS: Klor Con 10 MEQ PO SCH (13:17)
[2019-02-19] MEDS: Sodium Chloride 0.9% 1000 ML 1,000 ML IV SCH (16:51)
[2019-02-19] MEDS ORDERED: Spiriva 18 Mcg/Cap Inhaler IH ONE (18:31)
[2019-02-19] MEDS ORDERED: Advair Hfa 115/21 Common canister IH SCH (19:00)
[2019-02-19] MEDS ORDERED: ROCEPHIN 1 Gm-D5w 50 ml Bag** 1 G/50 ML IVPB IV SCH (22:00)
[2019-02-19] MEDS ORDERED: ZYLOPRIM 100 MG PO SCH (22:00)
[2019-02-19] MEDS ORDERED: Spiriva 18 Mcg/Cap Inhaler IH SCH (22:00)
[2019-02-19] MEDS ORDERED: Zithromax 500 MG/ 250 ML NaCl Premix 500 MG/250 ML IVPB IV SCH (22:00)
[2019-02-20] MEDS: Xopenex 1.25 MG/0.5 ML UD NEBULE IH PRN ×2 (01:50→07:22)
[2019-02-20] MEDS ORDERED: Zofran 4 MG/2 ML VIAL IV PRN (02:26)
[2019-02-20] MEDS: TYLENOL 325 MG PO PRN ×2 (02:30→09:39)
[2019-02-20] MEDS: DUONEB 0.5-3 MG/3 ml Neb IH SCH ×3 (03:40→11:30)
[2019-02-20 04:04] LABS: A-aADO2 -69; ABG HEMOGLOBIN 12.5; ABG POTASSIUM 4.5 (3.5-5.1); ARTERIAL BLD GAS O2 SATURATION 99.6 % (95-100); ARTERIAL BLOOD GAS BASE EXCESS 4.7 (-2.0-2.0); ARTERIAL BLOOD GAS FIO2 36 %; ARTERIAL BLOOD GAS PO2 189 mmHg (75-100); CARBOXYHEMOGLOBIN 1.6 % THgb (0.0-6.9); HCO3- 37.1 (22-28); HGB O2 SAT 97.1 g/dF (94-100); Methhemoglobin 0.9 % (1.4-1.5); paO2 pAO1 1.58
[2019-02-20 04:05] LABS: ARTERIAL BLOOD GAS PCO2 109 mmHg (35-45); ARTERIAL BLOOD GAS pH 7.14 (7.35-7.45)
[2019-02-20 04:06] LABS: ABG SITE LEFT RADIAL; ALLEN TEST OK? YES
[2019-02-20] MEDS: PULMICORT 0.5 MG/2 ML RESPULES IH SCH (07:24)
--- NOTE | 2019-02-20 07:55 | PCM.NOTE ---
Date and Time: 02/20/19 0752 Subjective Assessment: patient has rough night. Patient was put on Bi-PAP at around $ AM as ABG were consistent with respiratory acidosis - Review of Systems Constitutional: Fatigue, Lethargy, No Fever, No Chills Eyes: No Symptoms Ears, Nose, & Throat: No Symptoms Respiratory: Cough, Orthopnea, Short Of Breath, Wheezing Cardiac: No Chest Pain, No Edema, No Syncope Abdominal/Gastrointestinal: No Abdominal Pain, No Nausea, No Vomiting, No Diarrhea Genitourinary Symptoms: No Dysuria Musculoskeletal: No Back Pain, No Neck Pain Skin: No Rash Neurological: No Dizziness, No Focal Weakness, No Sensory Changes Psychological: No Symptoms Endocrine: No Symptoms Hematologic/Lymphatic: No Symptoms Immunological/Allergic: No Symptoms Objective Exam General Appearance: moderate distress, alert, lethargy Neurologic Exam: alert, oriented x 3, cooperative, normal mood/affect, nml cerebellar function, sensation nml, No motor deficits Skin Exam: normal color, warm, dry Eye Exam: PERRL, EOMI, eyes nml inspection Ears, Nose, Throat Exam: normal ENT inspection, pharynx normal, moist mucous membranes Neck Exam: normal inspection, non-tender, supple, full range of motion Respiratory Exam: respiratory distress, diminished breath sounds, accessory muscle use, prolonged expirations, crackles/rales, rhonchi, wheezing Cardiovascular Exam: regular rate/rhythm, normal heart sounds Gastrointestinal/Abdomen Exam: soft, No tenderness, No mass Extremity Exam: normal inspection, normal range of motion Back Exam: normal inspection, normal range of motion, No CVA tenderness, No vertebral tenderness Pelvic Exam: deferred Rectal Exam: deferred OBJECTIVE DATA Vital Signs: Vital Signs - 24 hr Temp Pulse Resp BP Pulse Ox 02/20/19 07:47 97.1 F 91 H 20 140/76 99 02/20/19 07:26 113 H 22 98 02/20/19 04:28 101 H 24 99 02/20/19 04:00 97.6 F 105 H 24 180/86 98 02/20/19 02:13 106 H 24 97 02/20/19 00:00 97.4 F 104 H 20 141/71 97 02/19/19 23:20 62 22 97 02/19/19 20:00 97.4 F 94 H 22 120/65 94 L 03/30/19 19:19 94 H 20 93 L 03/30/19 16:00 98.2 F 89 20 130/60 90 L 02/19/19 14:57 92 H 22 90 L 02/19/19 12:00 98.4 F 87 20 113/55 92 L 02/19/19 11:52 20 02/19/19 10:56 89 20 88 L 02/19/19 08:00 20 Oxygen-Last 24 hours O2 Percentage 4 Liters = 36% O2 Percentage 4 Liters = 36% Oxygen Flowrate (L/min)-RT 4 Pain Assessment - Last Documented Pain Intensity 7 Pain Scale Used 0-10 Pain Scale Intake and Output: Intake & Output 02/17/19 02/18/19 02/19/19 02/20/19 11:59 11:59 11:59 11:59 Intake Total 120 2192 Output Total 350 Balance 120 1842 Weight 94.6 kg Lab Results: Lab Results-Last 24 Hours 02/20/19 Range/Units 03:55 Puncture Site LEFT RADIAL pCO2 109 H* (35-45) mmHg pO2 189 H* (75-100) mmHg Base Excess 4.7 H (-2.0-2.0) O2 Saturation 97.1 (94-100) g/dF ABG pH 7.14 L* (7.35-7.45) ABG HCO3 37.1 H* (22-28) ABG O2 Sat (Measured) 99.6 (95-100) % Alexey Test YES A-a Gradient -69 a/A Ratio 1.58 Hemoglobin 12.5 Carboxyhemoglobin 1.6 (0.0-6.9) % THgb Methemoglobin 0.9 L (1.4-1.5) % Potassium 4.5 (3.5-5.1) Temperature 37.0 C POC O2 Flow Rate 36 % Radiology Exams: Radiology Procedures Category Date Time Status CHEST 1 VIEW (PORTABLE) Stat Exams 02/18/19 19:28 Completed Multi-Disciplinary Progress Notes: Multi-Disciplinary Progress Notes 02/20/19 04:34 Respiratory Note by Juany Peterson Patient sitting at bedside with CPAP on but is lethargic with increased WOB with a RR of 24-26 with prolonged expiratory phase with little to no aeration and expiratory wheezing throughout all lung lugo as well as decreased LOC. HHN Treatment started with Duoneb. RN notified to help RT get the patient back into bed. Patient states she can't breathe and that she cannot sit back. Patient placed into bed and sat up with bedside table available for her to tripod on. ABG drawn with results significant for impending respiratory failure. Patient initiated on Bipap 18/6, RR12, 40% and physician notified. Orders obtained to re-draw ABG at 0800. Initialized on 02/20/19 04:34 - END OF NOTE Assessment/Plan (1) Respiratory failure with hypoxia and hypercapnia Current Visit: Yes Status: Acute Qualifiers: Chronicity: acute on chronic Assessment & Plan: Respiratory Therapy 02/19/19 07:00 Respiratory Therapy Assessment DAILY 02/19/19 07:18 Peak Expiratory Flow Rate ONCE Last Vital Signs Temp 97.1 F 02/20/19 07:47 Pulse 91 H 02/20/19 07:47 Resp 20 02/20/19 07:47 BP 140/76 02/20/19 07:47 Pulse Ox 99 02/20/19 07:47 Allergies modafinil [From Provigil] Allergy (Severe, Verified 02/19/19 11:58) suicidal tendencies codeine [Codeine] Allergy (Verified 02/19/19 11:58) levofloxacin [From Levaquin] Allergy (Verified 02/19/19 11:58) paroxetine [From Paxil] Allergy (Verified 02/19/19 11:58) tramadol Allergy (Verified 02/19/19 11:58) armodafinil [From Nuvigil] Adverse Reaction (Severe, Verified 02/19/19 11:58) suicidal tendencies fluticasone furoate [From Breo Ellipta] Adverse Reaction (Intermediate, Verified 02/19/19 11:58) full body tremors sertraline [From Zoloft] Adverse Reaction (Intermediate, Verified 02/19/19 11:58 ) full body tremors vilanterol [From Breo Ellipta] Adverse Reaction (Intermediate, Verified 11:58) full body tremors ciprofloxacin [From Cipro] Adverse Reaction (Verified 02/19/19 11:58) Leg pain Active Medications Acetaminophen (Tylenol 325 Mg) 650 mg PO Q4H PRN PRN PRN Reason: PAIN AND/OR FEVER Stop: 03/22/19 02:25 Last Admin: 02/20/19 02:30 Dose: 650 mg Albuterol/Ipratropium (Duoneb 0.5-3 Mg/3 Ml Neb) 3 ml IH Q4HRT [facility] Stop: 03/20/19 22:59 Last Admin: 02/20/19 07:21 Dose: 3 ml Allopurinol (Zyloprim 100 Mg) 100 mg PO HS [facility] Stop: 03/21/19 21:59 Last Admin: 02/19/19 21:36 Dose: 100 mg Alprazolam (Xanax 0.25 Mg) 0.25 mg PO QID [facility] Stop: 03/20/19 21:59 Last Admin: 02/19/19 21:36 Dose: 0.25 mg Aspirin (Ecotrin 81 Mg) 81 mg PO 3XW [facility] Stop: 03/21/19 12:29 Budesonide (Pulmicort 0.5 Mg/2 Ml Respules) 0.5 mg IH BID [facility] Stop: 03/20/19 21:59 Last Admin: 02/20/19 07:24 Dose: 0.5 mg Sodium Chloride (Sodium Chloride 0.9% 1000 Ml) 1,000 mls @ 50 mls/hr IV .Q20H [facility] Stop: 03/20/19 19:29 Last Admin: 02/19/19 16:51 Dose: 50 mls/hr Azithromycin (Zithromax 500 Mg/ 250 Ml Nacl Premix) 500 mg in 250 mls @ 250 mls /hr IV Q24H22 [facility] Stop: 03/21/19 21:59 Last Admin: 02/19/19 22:41 Dose: 250 mls/hr Ceftriaxone Sodium/Dextrose (Rocephin 1 Gm-D5w 50 Ml Bag) 1 g in 50 mls @ 100 mls/hr IV Q24H22 [facility] Stop: 03/21/19 21:59 Last Admin: 02/19/19 21:36 Dose: 100 mls/hr Levalbuterol HCl (Xopenex 1.25 Mg/0.5 Ml Ud Nebule) 1.25 mg IH Q2HPRN PRN PRN Reason: DYSPNEA Stop: 03/20/19 21:03 Last Admin: 02/20/19 01:50 Dose: 1.25 mg Magnesium Oxide (Mag-Ox 400) 400 mg PO DAILY [facility] Stop: 03/21/19 09:59 Last Admin: 02/19/19 10:44 Dose: 400 mg Ondansetron HCl (Zofran 4 Mg/2 Ml Vial) 4 mg IV Q6H PRN PRN PRN Reason: NAUSEA/VOMITING Stop: 03/22/19 02:25 Last Admin: 02/20/19 02:37 Dose: 4 mg Pantoprazole Sodium (Protonix 40mg Tablet) 40 mg PO DAILY [facility] Stop: 03/21/19 09:59 Last Admin: 02/19/19 10:44 Dose: 40 mg Potassium Chloride (Klor Con 10 Meq) 10 meq PO DAILY [facility] Stop: 03/21/19 12:29 Last Admin: 02/19/19 13:17 Dose: 10 meq Fluticasone/Salmeterol (Advair Hfa 115/21 Common Canister*) 2 puff IH BIDRT [facility] Stop: 03/21/19 18:59 Last Admin: 02/19/19 23:08 Dose: 2 puff Tiotropium [place] (Spiriva 18 Mcg/Cap Inhaler) 1 ea IH QPM [facility] Stop: 03/21/19 21:59 Last Admin: 02/19/19 23:10 Dose: 1 ea Torsemide (Demadex 20 Mg) 20 mg PO DAILY [facility] Stop: 03/21/19 12:29 Last Admin: 02/19/19 13:16 Dose: 20 mg Intake & Output 02/19/19 02/20/19 11:59 11:59 Intake Total 120 2192 Output Total 350 Balance 120 1842 Weight 94.6 kg Orders 02/19/19 07:00 Respiratory Therapy Assessment DAILY 02/19/19 07:18 Peak Expiratory Flow Rate ONCE 02/19/19 12:30 Aspirin EC 81 mg [Ecotrin 81 mg] 81 mg PO 3XW Potassium Chloride 10 Meq Tab* [Klor Con 10 MEQ] 10 meq PO DAILY Torsemide 20 mg [Demadex 20 mg] 20 mg PO DAILY 02/19/19 19:00 Fluticasone/Salmeterol 115/21 [Advair Hfa 115/21 Common canister*] 2 puff IH BIDRT 02/19/19 22:00 Allopurinol 100 mg [Zyloprim 100 mg] 100 mg PO HS Tiotropium [place] Inhaler [Spiriva 18 Mcg/Cap Inhaler] 1 ea IH QPM 02/20/19 02:26 Acetaminophen 325 mg [Tylenol 325 mg] 650 mg PO Q4H PRN PRN Ondansetron HCl 4 mg/2 ml [Zofran 4 MG/2 ML VIAL] 4 mg IV Q6H PRN PRN 02/20/19 08:00 ABG [ARTERIAL BLOOD GASES] Routine Lab Tests 02/20/19 03:55 Puncture Site LEFT RADIAL pCO2 109 H* pO2 189 H* Base Excess 4.7 H O2 Saturation 97.1 ABG pH 7.14 L* ABG HCO3 37.1 H* ABG O2 Sat (Measured) 99.6 Alexey Test YES A-a Gradient -69 a/A Ratio 1.58 Hemoglobin 12.5 Carboxyhemoglobin 1.6 Methemoglobin 0.9 L Potassium 4.5 Temperature 37.0 POC O2 Flow Rate 36 Code(s): J96.91 - RESPIRATORY FAILURE, UNSPECIFIED WITH HYPOXIA; J96.92 - RESPIRATORY FAILURE, UNSPECIFIED WITH HYPERCAPNIA (2) COPD exacerbation Current Visit: Yes Status: Resolved Onset Date: ~10/23/18 Assessment & Plan: worsening. patient on BiPAP Code(s): J44.1 - CHRONIC OBSTRUCTIVE PULMONARY DISEASE W (ACUTE) EXACERBATION (3) Respiratory failure, [id number] Current Visit: Yes Status: Acute Onset Date: ~10/24/18 Qualifiers: Respiratory failure complication: hypoxia and hypercapnia Qualified Code(s) : J96.21 - Acute and chronic respiratory failure with hypoxia; J96.22 - Acute and chronic respiratory failure with hypercapnia Code(s): J96.20 - ACUTE AND CHR RESP FAILURE, UNSP W HYPOXIA OR HYPERCAPNIA
[2019-02-20 08:05] LABS: A-aADO2 106; ABG HEMOGLOBIN 12.2; ABG POTASSIUM 4.3 (3.5-5.1); ARTERIAL BLD GAS O2 SATURATION 96.6 % (95-100); ARTERIAL BLOOD GAS FIO2 40 %; ARTERIAL BLOOD GAS PO2 77 mmHg (75-100); ARTERIAL BLOOD GAS VENT MODE BiPAP; ARTERIAL BLOOD GAS pH 7.26 (7.35-7.45); CARBOXYHEMOGLOBIN 1.4 % THgb (0.0-6.9); HCO3- 36.8 (22-28); HGB O2 SAT 95.1 g/dF (94-100); Methhemoglobin 0.2 % (1.4-1.5); paO2 pAO1 0.42
[2019-02-20 08:06] LABS: ARTERIAL BLOOD GAS PCO2 82 mmHg (35-45)
[2019-02-20 08:07] LABS: ABG SITE RIGHT RADIAL; ALLEN TEST OK? YES
[2019-02-20] MEDS: MAG-OX 400 PO SCH (09:40)
[2019-02-20] MEDS: Protonix 40MG Tablet PO SCH (09:40)
[2019-02-20] MEDS: Klor Con 10 MEQ PO SCH (09:41)
[2019-02-20] MEDS: DEMADEX 20 MG PO SCH (09:41)
[2019-02-20] MEDS: xanAX 0.25 MG PO SCH ×2 (09:41→13:11)
[2019-02-20] MEDS ORDERED: NON-FORMULARY ITEM (Budesonide/Formoterol Fumarate [Symbicort 160-4.5 Mcg Inhaler] 10.2 GM IH SCH (10:00)
[2019-02-20] MEDS ORDERED: TORSEMIDE 20 MG PO SCH (10:00)
[2019-02-20] MEDS ORDERED: PHARMACY DOSING REQUEST MC ONE (10:37)
[2019-02-20] MEDS ORDERED: Lasix 20 MG/2 ML IV ONE (10:38)
[2019-02-20] MEDS ORDERED: solu-MEDROL 40 MG IV SCH (10:45)
[2019-02-20] MEDS ORDERED: SODIUM CHLORIDE 0.9% IV SCH (11:00)
[2019-02-20] MEDS ORDERED: AMINOPHYLLINE IV SCH (11:00)
[2019-02-20 12:09] LABS: A-aADO2 97; ABG HEMOGLOBIN 13.2; ABG POTASSIUM 4.6 (3.5-5.1); ARTERIAL BLD GAS O2 SATURATION 96.5 % (95-100); ARTERIAL BLOOD GAS BASE EXCESS 7.8 (-2.0-2.0); ARTERIAL BLOOD GAS FIO2 40 %; ARTERIAL BLOOD GAS PO2 76 mmHg (75-100); ARTERIAL BLOOD GAS VENT MODE BiPAP; ARTERIAL BLOOD GAS pH 7.24 (7.35-7.45); CARBOXYHEMOGLOBIN 2.1 % THgb (0.0-6.9); HCO3- 38.6 (22-28); HGB O2 SAT 94.1 g/dF (94-100); Methhemoglobin 0.4 % (1.4-1.5); paO2 pAO1 0.44
[2019-02-20 12:10] LABS: ABG SITE RIGHT RADIAL; ALLEN TEST OK? YES; ARTERIAL BLOOD GAS PCO2 90 mmHg (35-45)
[2019-02-20 13:50] VITALS: BP 155/91; PULSE 100; O2SAT 96
[2019-02-20 14:38] LABS: A-aADO2 110; ABG HEMOGLOBIN 13.2; ABG POTASSIUM 4.3 (3.5-5.1); ARTERIAL BLD GAS O2 SATURATION 97.5 % (95-100); ARTERIAL BLOOD GAS BASE EXCESS 8.8 (-2.0-2.0); ARTERIAL BLOOD GAS FIO2 40 %; ARTERIAL BLOOD GAS PO2 86 mmHg (75-100); ARTERIAL BLOOD GAS VENT MODE BiPAP; ARTERIAL BLOOD GAS pH 7.33 (7.35-7.45); CARBOXYHEMOGLOBIN 1.1 % THgb (0.0-6.9); HCO3- 37.4 (22-28); HGB O2 SAT 95.3 g/dF (94-100); Methhemoglobin 1.2 % (1.4-1.5); paO2 pAO1 0.44
[2019-02-20 14:39] LABS: ARTERIAL BLOOD GAS PCO2 71 mmHg (35-45)
[2019-02-20 14:40] LABS: ABG SITE RIGHT RADIAL; ALLEN TEST OK? YES
--- NOTE | 2019-02-20 14:44 | PCM.DS ---
Discharge Summary Date of Admission: 02/20/19 07:52 Admitting Physician: URSZULA BENNETT Primary Care Provider: URSZULA BENNETT Allergies Allergies modafinil [From Provigil] Allergy (Severe, Verified 02/19/19 11:58) suicidal tendencies codeine [Codeine] Allergy (Verified 02/19/19 11:58) levofloxacin [From Levaquin] Allergy (Verified 02/19/19 11:58) paroxetine [From Paxil] Allergy (Verified 02/19/19 11:58) tramadol Allergy (Verified 02/19/19 11:58) armodafinil [From Nuvigil] Adverse Reaction (Severe, Verified 02/19/19 11:58) suicidal tendencies fluticasone furoate [From Breo Ellipta] Adverse Reaction (Intermediate, Verified 02/19/19 11:58) full body tremors sertraline [From Zoloft] Adverse Reaction (Intermediate, Verified 02/19/19 11:58 ) full body tremors vilanterol [From Breo Ellipta] Adverse Reaction (Intermediate, Verified 11:58) full body tremors ciprofloxacin [From Cipro] Adverse Reaction (Verified 02/19/19 11:58) Leg pain Hospital Summary - Hospital Course Hospital Course: Last Vital Signs Temp 98.9 F 02/20/19 12:00 Pulse 100 H 02/20/19 12:00 Resp 22 02/20/19 12:00 BP 155/91 02/20/19 12:00 Pulse Ox 96 02/20/19 12:00 Allergies modafinil [From Provigil] Allergy (Severe, Verified 02/19/19 11:58) suicidal tendencies codeine [Codeine] Allergy (Verified 02/19/19 11:58) levofloxacin [From Levaquin] Allergy (Verified 02/19/19 11:58) paroxetine [From Paxil] Allergy (Verified 02/19/19 11:58) tramadol Allergy (Verified 02/19/19 11:58) armodafinil [From Nuvigil] Adverse Reaction (Severe, Verified 02/19/19 11:58) suicidal tendencies fluticasone furoate [From Breo Ellipta] Adverse Reaction (Intermediate, Verified 02/19/19 11:58) full body tremors sertraline [From Zoloft] Adverse Reaction (Intermediate, Verified 02/19/19 11:58 ) full body tremors vilanterol [From Breo Ellipta] Adverse Reaction (Intermediate, Verified 11:58) full body tremors ciprofloxacin [From Cipro] Adverse Reaction (Verified 02/19/19 11:58) Leg pain Active Medications Acetaminophen (Tylenol 325 Mg) 650 mg PO Q4H PRN PRN PRN Reason: PAIN AND/OR FEVER Stop: 03/22/19 02:25 Last Admin: 02/20/19 09:39 Dose: 650 mg Albuterol/Ipratropium (Duoneb 0.5-3 Mg/3 Ml Neb) 3 ml IH Q4HRT [facility] Stop: 03/20/19 22:59 Last Admin: 02/20/19 11:30 Dose: 3 ml Allopurinol (Zyloprim 100 Mg) 100 mg PO HS [facility] Stop: 03/21/19 21:59 Last Admin: 02/19/19 21:36 Dose: 100 mg Alprazolam (Xanax 0.25 Mg) 0.25 mg PO QID [facility] Stop: 03/20/19 21:59 Last Admin: 02/20/19 13:11 Dose: 0.25 mg Aspirin (Ecotrin 81 Mg) 81 mg PO 3XW [facility] Stop: 03/21/19 12:29 Budesonide (Pulmicort 0.5 Mg/2 Ml Respules) 0.5 mg IH BID [facility] Stop: 03/20/19 21:59 Last Admin: 02/20/19 07:24 Dose: 0.5 mg Sodium Chloride (Sodium Chloride 0.9% 1000 Ml) 1,000 mls @ 50 mls/hr IV .Q20H [facility] Stop: 03/20/19 19:29 Last Admin: 02/19/19 16:51 Dose: 50 mls/hr Azithromycin (Zithromax 500 Mg/ 250 Ml Nacl Premix) 500 mg in 250 mls @ 250 mls /hr IV Q24H22 [facility] Stop: 03/21/19 21:59 Last Admin: 02/19/19 22:41 Dose: 250 mls/hr Ceftriaxone Sodium/Dextrose (Rocephin 1 Gm-D5w 50 Ml Bag) 1 g in 50 mls @ 100 mls/hr IV Q24H22 [facility] Stop: 03/21/19 21:59 Last Admin: 02/19/19 21:36 Dose: 100 mls/hr Aminophylline 1,000 mg/ Sodium (Chloride) 1,000 mls @ 20 mls/hr IV .Q24H [facility] Stop: 03/22/19 10:59 Last Admin: 02/20/19 11:26 Dose: 20 ml/hr, 20 mls/hr Levalbuterol HCl (Xopenex 1.25 Mg/0.5 Ml Ud Nebule) 1.25 mg IH Q2HPRN PRN PRN Reason: DYSPNEA Stop: 03/20/19 21:03 Last Admin: 02/20/19 01:50 Dose: 1.25 mg Magnesium Oxide (Mag-Ox 400) 400 mg PO DAILY [facility] Stop: 03/21/19 09:59 Last Admin: 02/20/19 09:40 Dose: 400 mg Methylprednisolone Sodium Succinate (Solu-Medrol 40 Mg) 40 mg IV Q6HT [facility] Stop: 03/22/19 10:44 Last Admin: 02/20/19 11:31 Dose: 40 mg Ondansetron HCl (Zofran 4 Mg/2 Ml Vial) 4 mg IV Q6H PRN PRN PRN Reason: NAUSEA/VOMITING Stop: 03/22/19 02:25 Last Admin: 02/20/19 02:37 Dose: 4 mg Pantoprazole Sodium (Protonix 40mg Tablet) 40 mg PO DAILY [facility] Stop: 03/21/19 09:59 Last Admin: 02/20/19 09:40 Dose: 40 mg Potassium Chloride (Klor Con 10 Meq) 10 meq PO DAILY [facility] Stop: 03/21/19 12:29 Last Admin: 02/20/19 09:41 Dose: 10 meq Fluticasone/Salmeterol (Advair Hfa 115/21 Common Canister*) 2 puff IH BIDRT [facility] Stop: 03/21/19 18:59 Last Admin: 02/19/19 23:08 Dose: 2 puff Tiotropium [place] (Spiriva 18 Mcg/Cap Inhaler) 1 ea IH QPM [facility] Stop: 03/21/19 21:59 Last Admin: 02/19/19 23:10 Dose: 1 ea Torsemide (Demadex 20 Mg) 20 mg PO DAILY [facility] Stop: 03/21/19 12:29 Last Admin: 02/20/19 09:41 Dose: 20 mg Intake & Output 02/20/19 02/21/19 11:59 11:59 Intake Total 2192 Output Total 2350 Balance -158 Weight 98.1 kg Orders 02/19/19 19:00 Fluticasone/Salmeterol 115/21 [Advair Hfa 115/21 Common canister*] 2 puff IH BIDRT 02/19/19 22:00 Allopurinol 100 mg [Zyloprim 100 mg] 100 mg PO HS Tiotropium [place] Inhaler [Spiriva 18 Mcg/Cap Inhaler] 1 ea IH QPM 02/20/19 02:26 Acetaminophen 325 mg [Tylenol 325 mg] 650 mg PO Q4H PRN PRN Ondansetron HCl 4 mg/2 ml [Zofran 4 MG/2 ML VIAL] 4 mg IV Q6H PRN PRN 02/20/19 07:56 Admission Status Change [Change to Full Admit] ROUTINE 02/20/19 10:37 Catheter-[place] STAT 02/20/19 10:39 Catheter Care Record Q6H 02/20/19 10:45 Methylprednisolone Sod Suc 40M [solu-MEDROL 40 MG] 40 mg IV Q6HT 02/20/19 11:00 NaCl 0.9% 1000 ml [Sodium Chloride 0.9% 1000 ML] 960 ml Aminophylline 500 mg/ 20 ml [Aminophylline 500 MG/20 ML] 1,000 mg IV 20 mls/hr 02/21/19 05:30 Theophylline DAILY 02/22/19 05:30 Theophylline DAILY 02/23/19 05:30 Theophylline DAILY Lab Tests 02/20/19 02/20/19 02/20/19 03:55 08:00 12:00 Puncture Site LEFT RADIAL RIGHT RADIAL RIGHT RADIAL pCO2 109 H* 82 H* 90 H* pO2 189 H* 77 76 Base Excess 4.7 H 7.0 H 7.8 H O2 Saturation 97.1 95.1 94.1 ABG pH 7.14 L* 7.26 L 7.24 L* ABG HCO3 37.1 H* 36.8 H* 38.6 H* ABG O2 Sat (Measured) 99.6 96.6 96.5 Alexey Test YES YES YES A-a Gradient -69 106 97 a/A Ratio 1.58 0.42 0.44 Hemoglobin 12.5 12.2 13.2 Carboxyhemoglobin 1.6 1.4 2.1 Methemoglobin 0.9 L 0.2 L 0.4 L Potassium 4.5 4.3 4.6 Temperature 37.0 37.0 37.0 POC O2 Flow Rate 36 40 40 Vent Mode BiPAP BiPAP Inspiratory BiPAP 18 20 Expiratory BiPAP 6 6 02/20/19 14:22 Puncture Site RIGHT RADIAL pCO2 71 H* pO2 86 Base Excess 8.8 H O2 Saturation 95.3 ABG pH 7.33 L ABG HCO3 37.4 H* ABG O2 Sat (Measured) 97.5 Alexey Test YES A-a Gradient 110 a/A Ratio 0.44 Hemoglobin 13.2 Carboxyhemoglobin 1.1 Methemoglobin 1.2 L Potassium 4.3 Temperature 37.0 POC O2 Flow Rate 40 Vent Mode BiPAP Inspiratory BiPAP 24 Expiratory BiPAP 6 Patient is getting more and more in respiratory distress, may need intubation. At this time she is stable with BiPAP, IpaP 24 IPAP 6. I talked to Dr Gross ( Hospitalist) at [facility] . He accepted patient. Will transfer via [facility] - Vitals & Intake/Output Vital Signs: Vital Signs Temperature 98.9 F 02/20/19 12:00 Pulse Rate 100 H 02/20/19 12:00 Respiratory Rate 22 02/20/19 12:00 Blood Pressure 155/91 02/20/19 12:00 O2 Sat by Pulse Oximetry 96 02/20/19 12:00 Oxygen-Last Documented O2 Percentage 4 Liters = 36% Intake & Output: Intake & Output 02/18/19 02/19/19 02/20/19 02/21/19 11:59 11:59 11:59 11:59 Intake Total 120 2192 Output Total 2350 Balance 120 -158 Weight 94.6 kg 98.1 kg - Lab Result Diagrams: 02/18/19 19:40 02/18/19 19:40 Lab Results-Last 24 Hrs: Lab Results-Last 24 Hours 02/20/19 02/20/19 02/20/19 Range/Units 03:55 08:00 12:00 Puncture Site LEFT RADIAL RIGHT RADIAL RIGHT RADIAL pCO2 109 H* 82 H* 90 H* (35-45) mmHg pO2 189 H* 77 76 (75-100) mmHg Base Excess 4.7 H 7.0 H 7.8 H (-2.0-2.0) O2 Saturation 97.1 95.1 94.1 (94-100) g/dF ABG pH 7.14 L* 7.26 L 7.24 L* (7.35-7.45) ABG HCO3 37.1 H* 36.8 H* 38.6 H* (22-28) ABG O2 Sat (Measured) 99.6 96.6 96.5 (95-100) % Alexey Test YES YES YES A-a Gradient -69 106 97 a/A Ratio 1.58 0.42 0.44 Hemoglobin 12.5 12.2 13.2 Carboxyhemoglobin 1.6 1.4 2.1 (0.0-6.9) % THgb Methemoglobin 0.9 L 0.2 L 0.4 L (1.4-1.5) % Potassium 4.5 4.3 4.6 (3.5-5.1) Temperature 37.0 37.0 37.0 C POC O2 Flow Rate 36 40 40 % Vent Mode BiPAP BiPAP Inspiratory BiPAP 18 20 Expiratory BiPAP 6 6 02/20/19 Range/Units 14:22 Puncture Site RIGHT RADIAL pCO2 71 H* (35-45) mmHg pO2 86 (75-100) mmHg Base Excess 8.8 H (-2.0-2.0) O2 Saturation 95.3 (94-100) g/dF ABG pH 7.33 L (7.35-7.45) ABG HCO3 37.4 H* (22-28) ABG O2 Sat (Measured) 97.5 (95-100) % Alexey Test YES A-a Gradient 110 a/A Ratio 0.44 Hemoglobin 13.2 Carboxyhemoglobin 1.1 (0.0-6.9) % THgb Methemoglobin 1.2 L (1.4-1.5) % Potassium 4.3 (3.5-5.1) Temperature 37.0 C POC O2 Flow Rate 40 % Vent Mode BiPAP Inspiratory BiPAP 24 Expiratory BiPAP 6 - Radiology Exams Ordered Rad Exams-Entire Visit: Radiology Procedures Category Date Time Status CHEST 1 VIEW (PORTABLE) Stat Exams 02/18/19 19:28 Completed - Procedures and Test Procedures and Tests throughout Hospitalization: Therapy Orders & Screens 02/18/19 19:29 Respiratory Nebulizer STAT Comment: Diagnosis: Shortness of Breath 02/18/19 19:56 Respiratory Therapy Assessment UD Comment: Diagnosis: Shortness of Breath 02/18/19 21:02 Oxygen Nasal Cannula 2 lpm Comment: Diagnosis: Shortness of Breath Respiratory Therapy Consult ROUTINE Comment: Reason For Exam: Diagnosis: Shortness of Breath 02/18/19 23:04 BiPap/CPAP QHS Comment: Diagnosis: Shortness of Breath 02/18/19 23:35 Smoking Cessation Education ONCE Comment: Diagnosis: Shortness of Breath Smoking Status: Current every day smoker How long have you smoked: 47 years Have you smoked in the past 12 months: Yes Approximately how many cigarettes per day: 10 Do you dip or chew tobacco: No 02/19/19 07:00 Respiratory Therapy Assessment DAILY Comment: Diagnosis: Shortness of Breath 02/19/19 07:18 Peak Expiratory Flow Rate ONCE Comment: Reason For Exam: Diagnosis: Shortness of Breath Discharge Exam General Appearance: moderate distress, alert Neurologic Exam: alert, oriented x 3, cooperative, normal mood/affect, nml cerebellar function, sensation nml, No motor deficits Skin Exam: normal color, warm, dry Eye Exam: PERRL, EOMI, eyes nml inspection Ears, Nose, Throat Exam: normal ENT inspection, pharynx normal, moist mucous membranes Neck Exam: normal inspection, non-tender, supple, full range of motion Respiratory Exam: respiratory distress, accessory muscle use, prolonged expirations, crackles/rales, wheezing Cardiovascular Exam: regular rate/rhythm, normal heart sounds Gastrointestinal/Abdomen Exam: soft, No tenderness, No mass Extremity Exam: normal inspection, normal range of motion Back Exam: normal inspection, normal range of motion, No CVA tenderness, No vertebral tenderness Pelvic Exam: deferred Rectal Exam: deferred Final Diagnosis/Problem List - Final Discharge Diagnosis/Problem (1) Respiratory failure with hypoxia and hypercapnia Current Visit: Yes Status: Acute Assessment & Plan: will transfer her to [facility] for further specialist care Code(s): J96.91 - RESPIRATORY FAILURE, UNSPECIFIED WITH HYPOXIA; J96.92 - RESPIRATORY FAILURE, UNSPECIFIED WITH HYPERCAPNIA (2) COPD exacerbation Current Visit: Yes Status: Resolved Onset Date: ~10/23/18 Code(s): J44.1 - CHRONIC OBSTRUCTIVE PULMONARY DISEASE W (ACUTE) EXACERBATION (3) Respiratory failure, [id number] Current Visit: Yes Status: Acute Onset Date: ~10/24/18 Code(s): J96.20 - ACUTE AND CHR RESP FAILURE, UNSP W HYPOXIA OR HYPERCAPNIA - Discharge Discharge Date: 02/20/19 [facility] Condition: Stable Prescriptions: No Action Torsemide 20 mg PO DAILY Combivent Inhaler 2 puff PO Q4HPRN PRN PRN Reason: Cough Potassium Chloride 10 Meq Tab* [Klor Con 10 MEQ] 595 mg PO DAILY Budesonide/Formoterol Fumarate [Symbicort 160-4.5 Mcg Inhaler] 10.2 gm IH DAILY Aspirin EC 81 mg [Ecotrin 81 mg] 81 mg PO 3XW Allopurinol 100 mg [Zyloprim 100 mg] 100 mg PO HS Magnesium Oxide [Magnesium] 400 mg PO DAILY PANTOPRAZOLE 40 mg Tablet [Protonix 40MG Tablet] 40 mg PO DAILY tab Tiotropium [place] Inhaler [Spiriva 18 Mcg/Cap Inhaler] 1 ea IH QPM inh Alprazolam 0.25 mg [xanAX 0.25 MG] 0.25 mg PO Q6HPRN PRN PRN Reason: Anxiety/Agitation Follow up with: URSZULA BENNETT MD [Primary Care Provider] - 1 Week
== END 2019-02-20 15:03 | disposition short-term general hospital (02) | DRG 189 ==
LOC: ED 19:07 → MED SURG 22:07 → OBSVTOIN 02-20 07:52
PROVIDERS: ADMIT General Practice; ATTEND General Practice
DX: J96.22 Acute and chronic respiratory failure with hypercapnia (principal); J44.1 Chronic obstructive pulmonary disease with (acute) exacerbation; E87.2 Acidosis; J96.21 Acute and chronic respiratory failure with hypoxia; Z79.899 Other long term (current) drug therapy; F17.200 Nicotine dependence, unspecified, uncomplicated; Z99.81 Dependence on supplemental oxygen
CPT/HCPCS: 36000; 36415; 36600; 71045; 80053; 81001; 82375; 82803; 83605; 83735; 83880; 84484; 85025; 85610; 87040; 87631; 93005; 93041; 94002; 94150; 94640; 94660; 94760; 94762; 96360; 96365; 96367; 96374; 96375; 99285; G0378; J0280; J0456; J0696; J1940; J2405; J2920; J2930; J7609; A9270-GY

== ENCOUNTER 2019-03-25 11:03 | Observation (INO) | payer MEDICARE ==
[2019-03-25] MEDS ORDERED: Sodium Chloride 0.9% 1000 ML 1,000 ML IV SCH ×2 (12:00)
--- NOTE | 2019-03-25 12:17 | XRAY ---
Indication: Fever and cough. Comparison: February 18, 2019. Portable chest again hyperinflated with new right base infiltrate/atelectasis. Remaining heart, left lung, and bony thorax unremarkable.
[2019-03-25 12:46] LABS: ANION GAP 13.2 MEQ/L (5-15); BLOOD UREA NITROGEN 12 mg/dL (7-17); CHLORIDE 96 mmol/L (98-107); Calcium 9.6 mg/dL (8.4-10.2); Carbon Dioxide 33 mmol/L (22-30); Creatinine 1 0.66 mg/dL (0.52-1.04); Glucose 145 mg/dL (74-106); Potassium 4.6 mmol/L (3.5-5.1); SODIUM 137 mmol/L (137-145)
[2019-03-25 13:23] LABS: Hemoglobin 10.1 gm/dl (12.0-16.0); Mean Cell Volume 106.5 fl (78-100); Mean Corpuscular Hgb Concent. 30.6 g/dl (32-36); Mean Platelet Volume 8.6 fl (6-9.5); Platelet Count 531 K/mm3 (150-450); Red Cell Distribution Width 13.4 % (11.5-14.0); White Blood Count 21.7 K/mm3 (4.0-10.5)
[2019-03-25 13:24] LABS: Mean Corpuscular Hemoglobin 32.5 pg (26-32)
[2019-03-25 14:19] LABS: BAND 4 % (0.0-2.0); Lymphocytes 3 % (24-44); Metamyelocyte 1 %; Monocyte 6 % (0.0-12.0); Neutrophils 86 % (36.0-66.0); Total Cells Counted 100
[2019-03-25 14:21] LABS: Macrocytosis 1+; Platelet Estimate INCREASED (NORMAL); Polychromasia 1+; Toxic Granulation 2+
[2019-03-25 14:22] LABS: Granulocyte Absolute (ANC) 19.5 (1.4-6.9)
--- NOTE | 2019-03-25 14:55 | ERPHSYRPT ---
- History of Present Illness Time Seen by Provider: 03/25/19 11:20 Source: patient Exam Limitations: clinical condition Patient Subjective Stated Complaint: states was over medicated at senior living, was given gabapentin for 18 days that she states she is allergic too. woke up this am feeling like she wasn't getting air from her CPAP and difficulty breathing with 102 fever, shakes and chills. States does not feel sob at this time. currently on 4L oxygen per nc with saturation 96%. denies prod cough, denies chest pain, dizziness, and SOB at this time. worried taking the gabapentin caused a fever and other symptoms. pt reports was taken off the ventilator on March 01, went to [facility] March 02 and nc Thursday. Triage Nursing Assessment: pt presents to ER in w/c, transferred self to bed. on oxygen nc at 4L. saturation 96%. resp 28, no cough. lungs diminished bilat A/ P. fine crackles noted AYANNA. skin pink, warm and dry. edema noted bilat lower extrem, worse in left with 2+ pitting in left with taut skin. Physician History: PATIENT WITH HISTORY OF SLEEP APNEA, COPD, HOME OXYGEN COMPLAINS OF FEVER X 2 DAYS AND OCCASIONAL COUGH. DENIES SHORTNESS OF BREATH, CHEST PAIN. Timing/Duration: today Activities at Onset: activity Severity of Dyspnea-Max: moderate Severity of Dyspnea-Current: moderate Possible Cause: occasional episodes Modifying Factors: Improves With: activity Associated Symptoms: cough, edema International travel in last 2 weeks: No Allergies/Adverse Reactions: modafinil [From Provigil] Allergy (Severe, Verified 02/19/19 11:58) suicidal tendencies codeine [Codeine] Allergy (Verified 02/19/19 11:58) levofloxacin [From Levaquin] Allergy (Verified 02/19/19 11:58) paroxetine [From Paxil] Allergy (Verified 02/19/19 11:58) tramadol Allergy (Verified 02/19/19 11:58) armodafinil [From Nuvigil] Adverse Reaction (Severe, Verified 02/19/19 11:58) suicidal tendencies fluticasone furoate [From Breo Ellipta] Adverse Reaction (Intermediate, Verified 02/19/19 11:58) full body tremors sertraline [From Zoloft] Adverse Reaction (Intermediate, Verified 02/19/19 11:58 ) full body tremors vilanterol [From Breo Ellipta] Adverse Reaction (Intermediate, Verified 11:58) full body tremors ciprofloxacin [From Cipro] Adverse Reaction (Verified 02/19/19 11:58) Leg pain Home Medications: Aspirin EC 81 mg [Ecotrin 81 mg] 81 mg PO 3XW 08/31/12 [History] Budesonide/Formoterol Fumarate [Symbicort 160-4.5 Mcg Inhaler] 10.2 gm IH DAILY 08/31/12 [History] Combivent Inhaler 2 puff PO Q4HPRN PRN 08/31/12 [History] Potassium Chloride 10 Meq Tab* [Klor Con 10 MEQ] 595 mg PO DAILY 08/31/12 [ History] Torsemide 20 mg PO DAILY 08/31/12 [History] Allopurinol 100 mg [Zyloprim 100 mg] 100 mg PO HS 10/23/18 [History] Magnesium Oxide [Magnesium] 400 mg PO DAILY 10/23/18 [History] Alprazolam 0.25 mg [xanAX 0.25 MG] 0.25 mg PO Q6HPRN PRN 02/18/19 [History ] Hx Tetanus, Diphtheria Vaccination/Date Given: Yes Hx Influenza Vaccination/Date Given: Yes Hx Pneumococcal Vaccination/Date Given: Yes Immunizations Up to Date: Yes - Review of Systems Constitutional: No Fever, No Chills Eyes: No Symptoms Ears, Nose, & Throat: No Symptoms Respiratory: No Cough, No Dyspnea Cardiac: No Chest Pain, No Edema, No Syncope Abdominal/Gastrointestinal: No Symptoms, No Abdominal Pain, No Nausea, No Vomiting, No Diarrhea Genitourinary Symptoms: No Symptoms, No Dysuria Musculoskeletal: No Symptoms, No Back Pain, No Neck Pain Skin: No Rash Neurological: No Dizziness, No Focal Weakness, No Sensory Changes Psychological: No Symptoms Endocrine: No Symptoms All Other Systems: Reviewed and Negative - Past Medical History Pertinent Past Medical History: Yes Neurological History: No Pertinent History ENT History: No Pertinent History Cardiac History: No Pertinent History Respiratory History: COPD, Sleep Apnea, Other Endocrine Medical History: No Pertinent History Musculoskeletal History: Arthritis GI Medical History: No Pertinent History History: No Pertinent History Psycho-Social History: Anxiety Female Reproductive Disorders: No Pertinent History Other Medical History: NARCOLEPSY. RESTLESS LEG SYNDROME - Past Surgical History Past Surgical History: Yes Neuro Surgical History: No Pertinent History Cardiac: Cardiac Catheterization Respiratory: No Pertinent History Gastrointestinal: Appendectomy Genitourinary: No Pertinent History Musculoskeletal: Other Female Surgical History: Hysterectomy Other Surgical History: biopsy of lump from neck - Social History Smoking Status: Current every day smoker How long have you smoked: 47 years Exposure to second hand smoke: No Drug Use: none Patient Lives Alone: Yes - Female History Hx Now: No - Nursing Vital Signs Nursing Vital Signs: Initial Vital Signs Temperature 99.9 F 03/25/19 11:04 Respiratory Rate 28 H 03/25/19 11:04 Blood Pressure 137/61 03/25/19 11:04 O2 Sat by Pulse Oximetry 96 03/25/19 11:04 Pain Scale Pain Intensity 0 - Physical Exam General Appearance: no apparent distress, alert Eye Exam: PERRL/EOMI Neck Exam: normal inspection, supple Respiratory Exam: normal breath sounds Cardiovascular/Chest Exam: normal heart sounds, regular rate/rhythm Abdominal/Gastrointestinal Exam: soft, No tenderness, No distention, No mass Extremity Exam: non-tender, normal range of motion, normal inspection, no calf tenderness, no pedal edema Peripheral Pulses Exam: carotid (R): 2+, carotid (L): 2+, femoral (R): 2+, femoral (L): 2+, dorsalis-pedis (R): 2+, dorsalis-pedis (L): 2+ Neurologic Exam: alert, oriented x 3, cooperative, 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 as tested, sensation nml, No motor deficits Skin Exam: normal color, warm, No dry SpO2 Interpretation: normal SpO2: 97 - Course EKG Interpreted by Me: RATE, Sinus Rhythm, Non-specific ST Changes - Radiology Exams Chest X-ray Interpretation: Discussed w/ radiologist (NEW RIGHT BASE INFILTRATE AND HYPERVENTILATION) Ordered Tests: Active Orders 24 hr Category Date Time Status Clean Catch Urine Specimen STAT Care 03/25/19 11:55 Active CHEST 1 VIEW (PORTABLE) Stat Exams 03/25/19 11:56 Completed BLOOD CULTURE Stat Lab 03/25/19 12:30 Received BMP Stat Lab 03/25/19 12:30 Completed CBC W DIFF Stat Lab 03/25/19 12:30 Completed Manual Differential NC Stat Lab 03/25/19 12:30 Completed UA W/RFX UR CULTURE Stat Lab 03/25/19 14:42 Completed Transfer Order Routine Transfer 03/25/19 Ordered Medication Summary Generic Name Dose Route Start Last Admin Trade Name Jackie PRN Reason Stop Dose Admin Azithromycin 500 mg in 250 mls @ 250 mls/hr 03/25/19 15:02 Zithromax 500 Mg/ 250 Ml Nacl Premix IV 03/25/19 16:01 STAT STA Discontinued Medications Generic Name Dose Route Start Last Admin Trade Name Jackie PRN Reason Stop Dose Admin Sodium Chloride 1,000 mls @ 100 mls/hr 03/25/19 12:00 Sodium Chloride 0.9% 1000 Ml IV 04/24/19 11:59 .Q10H FRANCISCO Sodium Chloride 1,000 mls @ 250 mls/hr 03/25/19 12:00 03/25/19 12:56 Sodium Chloride 0.9% 1000 Ml IV 04/24/19 11:59 Not Given .Q4H FRANCISCO Ceftriaxone Sodium/Dextrose 1 g in 50 mls @ 100 mls/hr 03/25/19 15:02 15:14 Rocephin 1 Gm-D5w 50 Ml Bag IV 03/25/19 15:31 100 ml/hr STAT STA 100 mls/hr Administration Ceftriaxone Sodium/Dextrose Confirm 03/25/19 15:09 Rocephin 1 Gm-D5w 50 Ml Bag Administered 03/25/19 15:10 Dose 1 g in 50 mls @ ud IV .STK-MED ONE Lab/Rad Data: Laboratory Result Diagrams 03/25/19 12:30 03/25/19 12:30 Laboratory Results 03/25/19 03/25/19 03/25/19 Range/Units 14:42 12:30 12:30 WBC 21.7 H (4.0-10.5) K/mm3 RBC 3.10 L (4.1-5.4) M/mm3 Hgb 10.1 L (12.0-16.0) gm/dl Hct 33.0 L (35-47) % MCV 106.5 H (78-100) fl MCH 32.5 H (26-32) pg MCHC 30.6 L (32-36) g/dl RDW 13.4 (11.5-14.0) % Plt Count 531 H (150-450) K/mm3 MPV 8.6 (6-9.5) fl Absolute Granulocytes 19.5 H (1.4-6.9) Segmented Neutrophils 86 H (36.0-66.0) % Band Neutrophils 4 H (0.0-2.0) % Lymphocytes (Manual) 3 L (24-44) % Monocytes (Manual) 6 (0.0-12.0) % Metamyelocytes 1 % Toxic Granulation 2+ Platelet Estimate INCREASED (NORMAL) RBC Morphology ABNORMAL Polychromasia 1+ Macrocytosis 1+ Sodium 137 (137-145) mmol/L Potassium 4.6 (3.5-5.1) mmol/L Chloride 96 L (98-107) mmol/L Carbon Dioxide 33 H (22-30) mmol/L Anion Gap 13.2 (5-15) MEQ/L BUN 12 (7-17) mg/dL Creatinine 0.66 (0.52-1.04) mg/dL Estimated GFR > 60.0 ML/MIN Glucose 145 H (74-106) mg/dL Calcium 9.6 (8.4-10.2) mg/dL Urine Color YELLOW (YELLOW) Urine Appearance CLEAR (CLEAR) Urine pH 9.0 (5-6) Ur Specific [place] 1.013 (1.005-1.025) Urine Protein NEGATIVE (Negative) Urine Ketones NEGATIVE (NEGATIVE) Urine Blood NEGATIVE (0-5) Bert/ul Urine Nitrite NEGATIVE (NEGATIVE) Urine Bilirubin NEGATIVE (NEGATIVE) Urine Urobilinogen NEGATIVE (0-1) mg/dL Ur Leukocyte Esterase NEGATIVE (NEGATIVE) Urine WBC (Auto) 0-2 (0-5) /HPF Urine RBC (Auto) NONE (0-2) /HPF U Epithel Cells (Auto) RARE (FEW) /HPF Urine Bacteria (Auto) NONE (NEGATIVE) /HPF Urine Culture Reflexed NO (NO) Urine Glucose 50 (NEGATIVE) mg/dL - Progress Progress: re-examined Progress Note: 03/25/19 15:[address] BENNETT AT 1345 FOR OBSERVATION Blood Culture(s) Obtained: Yes Antibiotics given: Yes Discussed with Dr.: Bennett (DISCUSSED WITH DR BENNETT AT 1345 FOR OBSERVATION) - Departure Departure Disposition: Observation Clinical Impression: PNEUMONIA Condition: Stable Critical Care Time: No Referrals: URSZULA BENNETT MD [Primary Care Provider] -
[2019-03-25] MEDS ORDERED: ROCEPHIN 1 Gm-D5w 50 ml Bag** 1 G/50 ML IVPB IV STA (15:02)
[2019-03-25] MEDS ORDERED: Zithromax 500 MG/ 250 ML NaCl Premix 500 MG/250 ML IVPB IV STA (15:02)
[2019-03-25 15:06] LABS: Appearance CLEAR (CLEAR); Bilirubin NEGATIVE (NEGATIVE); Blood NEGATIVE Ery/ul (0-5); Epithelial Cells RARE /HPF (FEW); Glucose 50 mg/dL (NEGATIVE); Ketones NEGATIVE (NEGATIVE); Leukocyte Esterase NEGATIVE (NEGATIVE); Nitrite NEGATIVE (NEGATIVE); Protein,Urine Dip NEGATIVE (Negative); Specific Gravity 1.013 (1.005-1.025); Urobilinogen NEGATIVE mg/dL (0-1); WBC 0-2 /HPF (0-5)
[2019-03-25] MEDS ORDERED: ROCEPHIN 1 Gm-D5w 50 ml Bag** 1 G/50 ML IVPB IV ONE (15:09)
[2019-03-25] MEDS ORDERED: Zithromax 500 MG/ 250 ML NaCl Premix 500 MG/250 ML IVPB IV ONE (15:42)
[2019-03-25] MEDS ORDERED: TYLENOL 325 MG PO PRN (16:20)
[2019-03-25] MEDS ORDERED: Xopenex 1.25 MG/0.5 ML UD NEBULE IH PRN (16:20)
[2019-03-25] MEDS ORDERED: DUONEB 0.5-3 MG/3 ml Neb IH ONE (16:59)
[2019-03-25] MEDS: DUONEB 0.5-3 MG/3 ml Neb IH SCH ×2 (17:04→23:09)
[2019-03-25] MEDS: Advair Hfa 115/21 Common canister IH SCH (17:04)
[2019-03-25] MEDS ORDERED: NON-FORMULARY ITEM (Cyclobenzaprine Hcl [Cyclobenzaprine Hcl] 5 MG) PO PRN (17:21)
[2019-03-25] MEDS ORDERED: NON-FORMULARY ITEM (Hydrocodone/Apap 5-325 Tab^^^ 1 TAB) PO PRN (17:21)
[2019-03-25] MEDS ORDERED: NON-FORMULARY ITEM (Acetaminophen [Tylenol Arthritis] 650 MG) PO PRN (17:21)
[2019-03-25] MEDS ORDERED: NORCO 5/325 MG PO PRN (17:26)
[2019-03-25] MEDS ORDERED: Cyclobenzaprine 10 MG PO PRN (17:27)
[2019-03-25] MEDS: Sodium Chloride 0.9% 1000 ML 1,000 ML IV SCH (17:55)
[2019-03-25] MEDS: solu-MEDROL 125 MG IV SCH (18:16)
[2019-03-25] MEDS: ENOXAPARIN SODIUM SQ SCH (18:24)
[2019-03-25] MEDS: ZYLOPRIM 100 MG PO SCH (22:49)
[2019-03-25] MEDS: xanAX 0.25 MG PO SCH (22:56)
[2019-03-25] MEDS: Spiriva 18 Mcg/Cap Inhaler IH SCH (23:10)
[2019-03-26] MEDS: solu-MEDROL 125 MG IV SCH ×4 (00:54→18:10)
[2019-03-26] MEDS: DUONEB 0.5-3 MG/3 ml Neb IH SCH ×6 (03:20→23:01)
[2019-03-26 04:35] LABS: A-aADO2 186; ABG HEMOGLOBIN 11.2; ARTERIAL BLD GAS O2 SATURATION 93.6 % (95-100); ARTERIAL BLOOD GAS BASE EXCESS 9.1 (-2.0-2.0); ARTERIAL BLOOD GAS FIO2 44 %; ARTERIAL BLOOD GAS PCO2 51 mmHg (35-45); ARTERIAL BLOOD GAS PO2 64 mmHg (75-100); ARTERIAL BLOOD GAS VENT MODE CPAP; ARTERIAL BLOOD GAS pH 7.44 (7.35-7.45); CARBOXYHEMOGLOBIN 1.8 % THgb (0.0-6.9); HCO3- 34.6 (22-28); HGB O2 SAT 91.4 g/dF (94-100); Methhemoglobin 0.6 % (1.4-1.5); paO2 pAO1 0.26
[2019-03-26 04:37] LABS: ABG SITE LEFT RADIAL; ALLEN TEST OK? YES
--- NOTE | 2019-03-26 07:12 | PCM.HP ---
History of Present Illness - Chief Complaint Chief Complaint: fever and shortness of breath for 2-3 days Date: 03/25/19 History of Present Illness: is a 64 year old female.woke up this am feeling like she wasn't getting air from her CPAP and difficulty breathing with 102 fever, shakes and chills. States does not feel sob at this time. currently on 4L oxygen per nc with saturation 96%. denies prod cough, denies chest pain, dizziness, and SOB at this time. worried taking the gabapentin caused a fever and other symptoms. pt reports was taken off the ventilator on March 01, went to [facility] March 02 and [place] Thursday. - Review of Systems Constitutional: Fever, Chills Eyes: No Symptoms Ears, Nose, & Throat: No Symptoms Respiratory: Orthopnea, Short Of Breath, Wheezing, No Cough Cardiac: No Chest Pain, No Edema, No Syncope Abdominal/Gastrointestinal: No Abdominal Pain, No Nausea, No Vomiting, No Diarrhea Genitourinary Symptoms: No Dysuria Musculoskeletal: No Back Pain, No Neck Pain Skin: No Rash Neurological: No Dizziness, No Focal Weakness, No Sensory Changes Psychological: No Symptoms Endocrine: No Symptoms Hematologic/Lymphatic: No Symptoms Immunological/Allergic: No Symptoms Medications & Allergies Home Medications: Home Medication List Aspirin EC 81 mg [Ecotrin 81 mg] 81 mg PO UD 08/31/12 [History Confirmed 03/25/19] Budesonide/Formoterol Fumarate [Symbicort 160-4.5 Mcg Inhaler] 2 puff IH BID 08/04 [History Confirmed 03/25/19] Combivent Inhaler 2 puff PO Q4HPRN PRN 08/31/12 [History Confirmed 03/25/19] Potassium Chloride 10 Meq Tab* [Klor Con 10 MEQ] 10 meq PO DAILY 08/31/12 [ History Confirmed 03/25/19] Torsemide 20 mg PO DAILY 08/31/12 [History Confirmed 03/25/19] Allopurinol 100 mg [Zyloprim 100 mg] 100 mg PO HS 10/23/18 [History Confirmed 03/25/19] Magnesium Oxide [Magnesium] 400 mg PO DAILY 10/23/18 [History Confirmed 03/25/19 ] PANTOPRAZOLE 40 mg Tablet [Protonix 40MG Tablet] 40 mg PO DAILY tab 10/27 [Rx Confirmed 03/25/19] Alprazolam 0.25 mg [xanAX 0.25 MG] 0.25 mg PO BID 02/18/19 [History Confirmed 03/25/19] Acetaminophen [Tylenol Arthritis] 650 mg PO Q8HPRN PRN 03/25/19 [History Confirmed 03/25/19] Albuterol/Ipratropium 3ml Neb* [DUONEB 0.5-3 MG/3 ml Neb] 3 ml IH QID [History Confirmed 03/25/19] Cyclobenzaprine HCl 5 mg PO TIDPRN PRN 03/25/19 [History Confirmed 03/25/19] Hydrocodone/APAP 5-325 Tab^^^ [Buchanan 5-325 Tablet^^^] 1 tab PO Q8HPRN PRN [History Confirmed 03/25/19] Vits W-Ca,Fe,FA(<1Mg) [] 1 tab PO DAILY 03/25/19 [History Confirmed 03/25/19] Tiotropium [place] Inhaler [Spiriva 18 Mcg/Cap Inhaler] 2 puff IH HS 03/25 [History Confirmed 03/25/19] Vitamin E 1,000 unit PO DAILY 03/25/19 [History Confirmed 03/25/19] Allergies/Adverse Reactions: Allergies Allergy/AdvReac Type Severity Reaction Status Date / Time modafinil [From Provigil] Allergy Severe Verified 02/19/19 11:58 codeine [Codeine] Allergy Verified 02/19/19 11:58 levofloxacin [From Levaquin] Allergy Verified 02/19/19 11:58 paroxetine [From Paxil] Allergy Verified 02/19/19 11:58 tramadol Allergy Verified 02/19/19 11:58 armodafinil [From Nuvigil] AdvReac Severe Verified 02/19/19 11:58 fluticasone furoate AdvReac Intermediate Verified 02/19/19 11:58 [From Breo Ellipta] sertraline [From Zoloft] AdvReac Intermediate Verified 02/19/19 11:58 vilanterol AdvReac Intermediate Verified 02/19/19 11:58 [From Breo Ellipta] ciprofloxacin [From Cipro] AdvReac Verified 02/19/19 11:58 - Past Medical History Past Medical History: Yes Neurological History: No Pertinent History ENT History: No Pertinent History Cardiac History: No Pertinent History Respiratory History: COPD, Pneumonia, Sleep Apnea, Other Endocrine Medical History: No Pertinent History Musculoskelatal History: Arthritis GI Medical History: Polyps History: No Pertinent History Pyscho-Social History: Anxiety, Depression, Panic Disorder Reproductive Disorders: No Pertinent History Comment: NARCOLEPSY. RESTLESS LEG SYNDROME - Female History Hx Last Menstrual Period: POST Are you now?: No - Past Surgical History Past Surgical History: Yes Neuro Surgical History: No Pertinent History Cardiac History: Cardiac Catheterization Respiratory Surgery: No Pertinent History GI Surgical History: Appendectomy Genitourinary Surgical Hx: No Pertinent History Musculskeletal Surgical Hx: Other Female Surgical History: Hysterectomy Other Surgical History: biopsy of lump from neck - Social History Smoking Status: Current every day smoker How long have you smoked: "48 YEARS" Exposure to second hand smoke: Yes Alcohol: None Drug Use: none - Physical Exam Vital Signs: Vital Signs - 24 hr Temp Pulse Resp BP Pulse Ox 03/26/19 04:00 97.6 F 67 21 114/57 91 L 03/26/19 03:21 66 21 92 L 03/25/19 23:45 98.7 F 69 21 121/68 96 03/25/19 23:11 68 18 94 L 03/25/19 20:20 99.6 F 91 H 19 116/61 98 03/25/19 17:26 99.9 F 96 H 20 117/57 95 03/25/19 17:09 94 H 20 95 03/25/19 16:20 99.9 F 96 H 20 117/57 95 03/25/19 15:42 97 03/25/19 14:50 114 H 23 143/59 97 03/25/19 14:39 122 H 22 126/46 97 03/25/19 12:44 1 L 22 116/79 97 03/25/19 11:04 99.9 F 28 H 137/61 96 Oxygen-Last 24 hours O2 Percentage 6 Liters = 44% O2 Percentage 4 Liters = 36% O2 Percentage 4 Liters = 36% O2 Percentage 4 Liters = 36% O2 Percentage 4 Liters = 36% O2 Percentage 4 Liters = 36% O2 Percentage 4 Liters = 36% O2 Percentage 4 Liters = 36% O2 Percentage 4 Liters = 36% Oxygen Flowrate (L/min)-RT 4 General Appearance: mild distress, alert Neurologic Exam: alert, oriented x 3, cooperative, normal mood/affect, nml cerebellar function, nml station & gait, sensation nml, No motor deficits Eye Exam: PERRL/EOMI, eyes nml inspection Ears, Nose, Throat Exam: normal ENT inspection, TMs normal, pharynx normal, moist mucous membranes Neck Exam: normal inspection, non-tender, supple, full range of motion Respiratory Exam: diminished breath sounds, crackles/rales, wheezing, No respiratory distress Cardiovascular Exam: regular rate/rhythm, normal heart sounds, normal peripheral pulses Gastrointestinal/Abdomen Exam: soft, normal bowel sounds, No tenderness, No mass Back Exam: normal inspection, normal range of motion, No CVA tenderness, No vertebral tenderness Extremity Exam: normal inspection, normal range of motion, pelvis stable Skin Exam: normal color, warm, dry, No rash Lymphatic Exam: No adenopathy Results - Labs Lab/Micro Results: Lab Results-Last 24 Hours 03/25/19 03/25/19 03/25/19 Range/Units 12:30 12:30 14:42 WBC 21.7 H (4.0-10.5) K/mm3 RBC 3.10 L (4.1-5.4) M/mm3 Hgb 10.1 L (12.0-16.0) gm/dl Hct 33.0 L (35-47) % MCV 106.5 H (78-100) fl MCH 32.5 H (26-32) pg MCHC 30.6 L (32-36) g/dl RDW 13.4 (11.5-14.0) % Plt Count 531 H (150-450) K/mm3 MPV 8.6 (6-9.5) fl Absolute Granulocytes 19.5 H (1.4-6.9) Segmented Neutrophils 86 H (36.0-66.0) % Band Neutrophils 4 H (0.0-2.0) % Lymphocytes (Manual) 3 L (24-44) % Monocytes (Manual) 6 (0.0-12.0) % Metamyelocytes 1 % Toxic Granulation 2+ Platelet Estimate INCREASED (NORMAL) RBC Morphology ABNORMAL Polychromasia 1+ Macrocytosis 1+ Puncture Site pCO2 (35-45) mmHg pO2 (75-100) mmHg Base Excess (-2.0-2.0) O2 Saturation (94-100) g/dF ABG pH (7.35-7.45) ABG HCO3 (22-28) ABG O2 Sat (Measured) (95-100) % Alexey Test A-a Gradient a/A Ratio Hemoglobin Carboxyhemoglobin (0.0-6.9) % THgb Methemoglobin (1.4-1.5) % Temperature C POC O2 Flow Rate % Vent Mode Sodium 137 (137-145) mmol/L Potassium 4.6 (3.5-5.1) mmol/L Chloride 96 L (98-107) mmol/L Carbon Dioxide 33 H (22-30) mmol/L Anion Gap 13.2 (5-15) MEQ/L BUN 12 (7-17) mg/dL Creatinine 0.66 (0.52-1.04) mg/dL Estimated GFR > 60.0 ML/MIN Glucose 145 H (74-106) mg/dL Calcium 9.6 (8.4-10.2) mg/dL Urine Color YELLOW (YELLOW) Urine Appearance CLEAR (CLEAR) Urine pH 9.0 (5-6) Ur Specific [place] 1.013 (1.005-1.025) Urine Protein NEGATIVE (Negative) Urine Ketones NEGATIVE (NEGATIVE) Urine Blood NEGATIVE (0-5) Bert/ul Urine Nitrite NEGATIVE (NEGATIVE) Urine Bilirubin NEGATIVE (NEGATIVE) Urine Urobilinogen NEGATIVE (0-1) mg/dL Ur Leukocyte Esterase NEGATIVE (NEGATIVE) Urine WBC (Auto) 0-2 (0-5) /HPF Urine RBC (Auto) NONE (0-2) /HPF U Epithel Cells (Auto) RARE (FEW) /HPF Urine Bacteria (Auto) NONE (NEGATIVE) /HPF Urine Culture Reflexed NO (NO) Urine Glucose 50 (NEGATIVE) mg/dL 03/26/ Range/Units 04:34 WBC (4.0-10.5) K/mm3 RBC (4.1-5.4) M/mm3 Hgb (12.0-16.0) gm/dl Hct (35-47) % MCV (78-100) fl MCH (26-32) pg MCHC (32-36) g/dl RDW (11.5-14.0) % Plt Count (150-450) K/mm3 MPV (6-9.5) fl Absolute Granulocytes (1.4-6.9) Segmented Neutrophils (36.0-66.0) % Band Neutrophils (0.0-2.0) % Lymphocytes (Manual) (24-44) % Monocytes (Manual) (0.0-12.0) % Metamyelocytes % Toxic Granulation Platelet Estimate (NORMAL) RBC Morphology Polychromasia Macrocytosis Puncture Site LEFT RADIAL pCO2 51 H (35-45) mmHg pO2 64 L (75-100) mmHg Base Excess 9.1 H (-2.0-2.0) O2 Saturation 91.4 L (94-100) g/dF ABG pH 7.44 (7.35-7.45) ABG HCO3 34.6 H* (22-28) ABG O2 Sat (Measured) 93.6 L (95-100) % Alexey Test YES A-a Gradient 186 a/A Ratio 0.26 Hemoglobin 11.2 Carboxyhemoglobin 1.8 (0.0-6.9) % THgb Methemoglobin 0.6 L (1.4-1.5) % Temperature 37.0 C POC O2 Flow Rate 44 % Vent Mode CPAP Sodium (137-145) mmol/L Potassium 4.0 (3.5-5.1) mmol/L Chloride (98-107) mmol/L Carbon Dioxide (22-30) mmol/L Anion Gap (5-15) MEQ/L BUN (7-17) mg/dL Creatinine (0.52-1.04) mg/dL Estimated GFR ML/MIN Glucose (74-106) mg/dL Calcium (8.4-10.2) mg/dL Urine Color (YELLOW) Urine Appearance (CLEAR) Urine pH (5-6) Ur Specific [place] (1.005-1.025) Urine Protein (Negative) Urine Ketones (NEGATIVE) Urine Blood (0-5) Bert/ul Urine Nitrite (NEGATIVE) Urine Bilirubin (NEGATIVE) Urine Urobilinogen (0-1) mg/dL Ur Leukocyte Esterase (NEGATIVE) Urine WBC (Auto) (0-5) /HPF Urine RBC (Auto) (0-2) /HPF U Epithel Cells (Auto) (FEW) /HPF Urine Bacteria (Auto) (NEGATIVE) /HPF Urine Culture Reflexed (NO) Urine Glucose (NEGATIVE) mg/dL - Radiology Impressions Radiology Exams & Impressions: Radiology Procedures Category Date Time Status CHEST 1 VIEW (PORTABLE) Stat Exams 03/25/19 11:56 Completed - Other Procedures and Tests Respiratory Therapy 03/25/19 16:20 Oxygen Nasal Cannula 2 lpm 03/25/19 17:07 Peak Expiratory Flow Rate ONCE Respiratory Therapy Assessment DAILY 03/25/19 21:00 BiPap/CPAP ROUTINE Assessment/Plan (1) Acute bronchopneumonia Current Visit: Yes Status: Acute Onset Date: ~10/24/18 Assessment & Plan: Laboratory Results 03/26/19 03/25/19 03/25/19 Range/Units 04:34 14:42 12:30 WBC (4.0-10.5) K/mm3 RBC (4.1-5.4) M/mm3 Hgb (12.0-16.0) gm/dl Hct (35-47) % MCV (78-100) fl MCH (26-32) pg MCHC (32-36) g/dl RDW (11.5-14.0) % Plt Count (150-450) K/mm3 MPV (6-9.5) fl Absolute Granulocytes (1.4-6.9) Segmented Neutrophils (36.0-66.0) % Band Neutrophils (0.0-2.0) % Lymphocytes (Manual) (24-44) % Monocytes (Manual) (0.0-12.0) % Metamyelocytes % Toxic Granulation Platelet Estimate (NORMAL) RBC Morphology Polychromasia Macrocytosis Puncture Site LEFT RADIAL pCO2 51 H (35-45) mmHg pO2 64 L (75-100) mmHg Base Excess 9.1 H (-2.0-2.0) O2 Saturation 91.4 L (94-100) g/dF ABG pH 7.44 (7.35-7.45) ABG HCO3 34.6 H* (22-28) ABG O2 Sat (Measured) 93.6 L (95-100) % Alexey Test YES A-a Gradient 186 a/A Ratio 0.26 Hemoglobin 11.2 Carboxyhemoglobin 1.8 (0.0-6.9) % THgb Methemoglobin 0.6 L (1.4-1.5) % Temperature 37.0 C POC O2 Flow Rate 44 % Vent Mode CPAP Sodium 137 (137-145) mmol/L Potassium 4.0 4.6 (3.5-5.1) mmol/L Chloride 96 L (98-107) mmol/L Carbon Dioxide 33 H (22-30) mmol/L Anion Gap 13.2 (5-15) MEQ/L BUN 12 (7-17) mg/dL Creatinine 0.66 (0.52-1.04) mg/dL Estimated GFR > 60.0 ML/MIN Glucose 145 H (74-106) mg/dL Calcium 9.6 (8.4-10.2) mg/dL Urine Color YELLOW (YELLOW) Urine Appearance CLEAR (CLEAR) Urine pH 9.0 (5-6) Ur Specific [place] 1.013 (1.005-1.025) Urine Protein NEGATIVE (Negative) Urine Ketones NEGATIVE (NEGATIVE) Urine Blood NEGATIVE (0-5) Bert/ul Urine Nitrite NEGATIVE (NEGATIVE) Urine Bilirubin NEGATIVE (NEGATIVE) Urine Urobilinogen NEGATIVE (0-1) mg/dL Ur Leukocyte Esterase NEGATIVE (NEGATIVE) Urine WBC (Auto) 0-2 (0-5) /HPF Urine RBC (Auto) NONE (0-2) /HPF U Epithel Cells (Auto) RARE (FEW) /HPF Urine Bacteria (Auto) NONE (NEGATIVE) /HPF Urine Culture Reflexed NO (NO) Urine Glucose 50 (NEGATIVE) mg/dL 03/25/19 Range/Units 12:30 WBC 21.7 H (4.0-10.5) K/mm3 RBC 3.10 L (4.1-5.4) M/mm3 Hgb 10.1 L (12.0-16.0) gm/dl Hct 33.0 L (35-47) % MCV 106.5 H (78-100) fl MCH 32.5 H (26-32) pg MCHC 30.6 L (32-36) g/dl RDW 13.4 (11.5-14.0) % Plt Count 531 H (150-450) K/mm3 MPV 8.6 (6-9.5) fl Absolute Granulocytes 19.5 H (1.4-6.9) Segmented Neutrophils 86 H (36.0-66.0) % Band Neutrophils 4 H (0.0-2.0) % Lymphocytes (Manual) 3 L (24-44) % Monocytes (Manual) 6 (0.0-12.0) % Metamyelocytes 1 % Toxic Granulation 2+ Platelet Estimate INCREASED (NORMAL) RBC Morphology ABNORMAL Polychromasia 1+ Macrocytosis 1+ Puncture Site pCO2 (35-45) mmHg pO2 (75-100) mmHg Base Excess (-2.0-2.0) O2 Saturation (94-100) g/dF ABG pH (7.35-7.45) ABG HCO3 (22-28) ABG O2 Sat (Measured) (95-100) % Alexey Test A-a Gradient a/A Ratio Hemoglobin Carboxyhemoglobin (0.0-6.9) % THgb Methemoglobin (1.4-1.5) % Temperature C POC O2 Flow Rate % Vent Mode Sodium (137-145) mmol/L Potassium (3.5-5.1) mmol/L Chloride (98-107) mmol/L Carbon Dioxide (22-30) mmol/L Anion Gap (5-15) MEQ/L BUN (7-17) mg/dL Creatinine (0.52-1.04) mg/dL Estimated GFR ML/MIN Glucose (74-106) mg/dL Calcium (8.4-10.2) mg/dL Urine Color (YELLOW) Urine Appearance (CLEAR) Urine pH (5-6) Ur Specific [place] (1.005-1.025) Urine Protein (Negative) Urine Ketones (NEGATIVE) Urine Blood (0-5) Bert/ul Urine Nitrite (NEGATIVE) Urine Bilirubin (NEGATIVE) Urine Urobilinogen (0-1) mg/dL Ur Leukocyte Esterase (NEGATIVE) Urine WBC (Auto) (0-5) /HPF Urine RBC (Auto) (0-2) /HPF U Epithel Cells (Auto) (FEW) /HPF Urine Bacteria (Auto) (NEGATIVE) /HPF Urine Culture Reflexed (NO) Urine Glucose (NEGATIVE) mg/dL Respiratory Therapy 03/25/19 16:20 Oxygen Nasal Cannula 2 lpm 03/25/19 17:07 Peak Expiratory Flow Rate ONCE Respiratory Therapy Assessment DAILY 03/25/19 21:00 BiPap/CPAP ROUTINE Code(s): J18.0 - BRONCHOPNEUMONIA, UNSPECIFIED ORGANISM (2) COPD exacerbation Current Visit: No Status: Resolved Onset Date: ~12/01/18 Code(s): J44.1 - CHRONIC OBSTRUCTIVE PULMONARY DISEASE W (ACUTE) EXACERBATION
--- NOTE | 2019-03-26 07:13 | PCM.NOTE ---
Date and Time: 03/26/19711 Subjective Assessment: doing little better - Review of Systems Constitutional: No Fever, No Chills Eyes: No Symptoms Ears, Nose, & Throat: No Symptoms Respiratory: Orthopnea, Short Of Breath, No Cough Cardiac: No Chest Pain, No Edema, No Syncope Abdominal/Gastrointestinal: No Abdominal Pain, No Nausea, No Vomiting, No Diarrhea Genitourinary Symptoms: No Dysuria Musculoskeletal: No Back Pain, No Neck Pain Skin: No Rash Neurological: No Dizziness, No Focal Weakness, No Sensory Changes Psychological: No Symptoms Endocrine: No Symptoms Hematologic/Lymphatic: No Symptoms Immunological/Allergic: No Symptoms Objective Exam General Appearance: no apparent distress, alert Neurologic Exam: alert, oriented x 3, cooperative, normal mood/affect, nml cerebellar function, sensation nml, No motor deficits Skin Exam: normal color, warm, dry Eye Exam: PERRL, EOMI, eyes nml inspection Ears, Nose, Throat Exam: normal ENT inspection, pharynx normal, moist mucous membranes Neck Exam: normal inspection, non-tender, supple, full range of motion Respiratory Exam: normal breath sounds, diminished breath sounds, rhonchi, wheezing, No respiratory distress Cardiovascular Exam: regular rate/rhythm, normal heart sounds Gastrointestinal/Abdomen Exam: soft, No tenderness, No mass Extremity Exam: normal inspection, normal range of motion Back Exam: normal inspection, normal range of motion, No CVA tenderness, No vertebral tenderness Pelvic Exam: deferred Rectal Exam: deferred OBJECTIVE DATA Vital Signs: Vital Signs - 24 hr Temp Pulse Resp BP Pulse Ox 03/26/19 04:00 97.6 F 67 21 114/57 91 L 03/26/19 03:21 66 21 92 L 03/25/19 23:45 98.7 F 69 21 121/68 96 03/25/19 23:11 68 18 94 L 03/25/19 20:20 99.6 F 91 H 19 116/61 98 03/25/19 17:26 99.9 F 96 H 20 117/57 95 03/25/19 17:09 94 H 20 95 03/25/19 16:20 99.9 F 96 H 20 117/57 95 03/25/19 15:42 97 03/25/19 14:50 114 H 23 143/59 97 03/25/19 14:39 122 H 22 126/46 97 03/25/19 12:44 1 L 22 116/79 97 03/25/19 11:04 99.9 F 28 H 137/61 96 Oxygen-Last 24 hours O2 Percentage 6 Liters = 44% O2 Percentage 4 Liters = 36% O2 Percentage 4 Liters = 36% O2 Percentage 4 Liters = 36% O2 Percentage 4 Liters = 36% O2 Percentage 4 Liters = 36% O2 Percentage 4 Liters = 36% O2 Percentage 4 Liters = 36% O2 Percentage 4 Liters = 36% Oxygen Flowrate (L/min)-RT 4 Pain Assessment - Last Documented Pain Intensity 0 Pain Scale Used 0-10 Pain Scale Intake and Output: Intake & Output 03/23/19 03/24/19 03/25/19 03/26/19 11:59 11:59 11:59 11:59 Intake Total 0 Balance 0 Weight 90.718 kg 90.5 kg Lab Results: Lab Results-Last 24 Hours 03/25/19 03/25/19 03/25/19 Range/Units 12:30 12:30 14:42 WBC 21.7 H (4.0-10.5) K/mm3 RBC 3.10 L (4.1-5.4) M/mm3 Hgb 10.1 L (12.0-16.0) gm/dl Hct 33.0 L (35-47) % MCV 106.5 H (78-100) fl MCH 32.5 H (26-32) pg MCHC 30.6 L (32-36) g/dl RDW 13.4 (11.5-14.0) % Plt Count 531 H (150-450) K/mm3 MPV 8.6 (6-9.5) fl Absolute Granulocytes 19.5 H (1.4-6.9) Segmented Neutrophils 86 H (36.0-66.0) % Band Neutrophils 4 H (0.0-2.0) % Lymphocytes (Manual) 3 L (24-44) % Monocytes (Manual) 6 (0.0-12.0) % Metamyelocytes 1 % Toxic Granulation 2+ Platelet Estimate INCREASED (NORMAL) RBC Morphology ABNORMAL Polychromasia 1+ Macrocytosis 1+ Puncture Site pCO2 (35-45) mmHg pO2 (75-100) mmHg Base Excess (-2.0-2.0) O2 Saturation (94-100) g/dF ABG pH (7.35-7.45) ABG HCO3 (22-28) ABG O2 Sat (Measured) (95-100) % Alexey Test A-a Gradient a/A Ratio Hemoglobin Carboxyhemoglobin (0.0-6.9) % THgb Methemoglobin (1.4-1.5) % Temperature C POC O2 Flow Rate % Vent Mode Sodium 137 (137-145) mmol/L Potassium 4.6 (3.5-5.1) mmol/L Chloride 96 L (98-107) mmol/L Carbon Dioxide 33 H (22-30) mmol/L Anion Gap 13.2 (5-15) MEQ/L BUN 12 (7-17) mg/dL Creatinine 0.66 (0.52-1.04) mg/dL Estimated GFR > 60.0 ML/MIN Glucose 145 H (74-106) mg/dL Calcium 9.6 (8.4-10.2) mg/dL Urine Color YELLOW (YELLOW) Urine Appearance CLEAR (CLEAR) Urine pH 9.0 (5-6) Ur Specific [place] 1.013 (1.005-1.025) Urine Protein NEGATIVE (Negative) Urine Ketones NEGATIVE (NEGATIVE) Urine Blood NEGATIVE (0-5) Bert/ul Urine Nitrite NEGATIVE (NEGATIVE) Urine Bilirubin NEGATIVE (NEGATIVE) Urine Urobilinogen NEGATIVE (0-1) mg/dL Ur Leukocyte Esterase NEGATIVE (NEGATIVE) Urine WBC (Auto) 0-2 (0-5) /HPF Urine RBC (Auto) NONE (0-2) /HPF U Epithel Cells (Auto) RARE (FEW) /HPF Urine Bacteria (Auto) NONE (NEGATIVE) /HPF Urine Culture Reflexed NO (NO) Urine Glucose 50 (NEGATIVE) mg/dL 03/26/19 Range/Units 04:34 WBC (4.0-10.5) K/mm3 RBC (4.1-5.4) M/mm3 Hgb (12.0-16.0) gm/dl Hct (35-47) % MCV (78-100) fl MCH (26-32) pg MCHC (32-36) g/dl RDW (11.5-14.0) % Plt Count (150-450) K/mm3 MPV (6-9.5) fl Absolute Granulocytes (1.4-6.9) Segmented Neutrophils (36.0-66.0) % Band Neutrophils (0.0-2.0) % Lymphocytes (Manual) (24-44) % Monocytes (Manual) (0.0-12.0) % Metamyelocytes % Toxic Granulation Platelet Estimate (NORMAL) RBC Morphology Polychromasia Macrocytosis Puncture Site LEFT RADIAL pCO2 51 H (35-45) mmHg pO2 64 L (75-100) mmHg Base Excess 9.1 H (-2.0-2.0) O2 Saturation 91.4 L (94-100) g/dF ABG pH 7.44 (7.35-7.45) ABG HCO3 34.6 H* (22-28) ABG O2 Sat (Measured) 93.6 L (95-100) % Alexey Test YES A-a Gradient 186 a/A Ratio 0.26 Hemoglobin 11.2 Carboxyhemoglobin 1.8 (0.0-6.9) % THgb Methemoglobin 0.6 L (1.4-1.5) % Temperature 37.0 C POC O2 Flow Rate 44 % Vent Mode CPAP Sodium (137-145) mmol/L Potassium 4.0 (3.5-5.1) mmol/L Chloride (98-107) mmol/L Carbon Dioxide (22-30) mmol/L Anion Gap (5-15) MEQ/L BUN (7-17) mg/dL Creatinine (0.52-1.04) mg/dL Estimated GFR ML/MIN Glucose (74-106) mg/dL Calcium (8.4-10.2) mg/dL Urine Color (YELLOW) Urine Appearance (CLEAR) Urine pH (5-6) Ur Specific [place] (1.005-1.025) Urine Protein (Negative) Urine Ketones (NEGATIVE) Urine Blood (0-5) Bert/ul Urine Nitrite (NEGATIVE) Urine Bilirubin (NEGATIVE) Urine Urobilinogen (0-1) mg/dL Ur Leukocyte Esterase (NEGATIVE) Urine WBC (Auto) (0-5) /HPF Urine RBC (Auto) (0-2) /HPF U Epithel Cells (Auto) (FEW) /HPF Urine Bacteria (Auto) (NEGATIVE) /HPF Urine Culture Reflexed (NO) Urine Glucose (NEGATIVE) mg/dL Radiology Exams: Radiology Procedures Category Date Time Status CHEST 1 VIEW (PORTABLE) Stat Exams 03/25/19 11:56 Completed Multi-Disciplinary Progress Notes: Multi-Disciplinary Progress Notes 03/26/19 03:41 Respiratory Note by Madi Bernal PT O2 SAT 87% ON 4L VIA CPAP AT 0330, PT PLACED ON 6L O2 VIA CPAP AT 0330 WITH AN O2 SAT OF 92%. Initialized on 03/26/19 03:41 - END OF NOTE Assessment/Plan (1) Acute bronchopneumonia Current Visit: Yes Status: Acute Onset Date: ~10/24/18 Assessment & Plan: Last Vital Signs Temp 97.6 F 03/26/19 04:00 Pulse 67 03/26/19 04:00 Resp 21 03/26/19 04:00 BP 114/57 03/26/19 04:00 Pulse Ox 91 L 03/26/19 04:00 Allergies modafinil [From Provigil] Allergy (Severe, Verified 02/19/19 11:58) suicidal tendencies codeine [Codeine] Allergy (Verified 02/19/19 11:58) levofloxacin [From Levaquin] Allergy (Verified 02/19/19 11:58) paroxetine [From Paxil] Allergy (Verified 02/19/19 11:58) tramadol Allergy (Verified 02/19/19 11:58) armodafinil [From Nuvigil] Adverse Reaction (Severe, Verified 02/19/19 11:58) suicidal tendencies fluticasone furoate [From Breo Ellipta] Adverse Reaction (Intermediate, Verified 02/19/19 11:58) full body tremors sertraline [From Zoloft] Adverse Reaction (Intermediate, Verified 02/19/19 11:58 ) full body tremors vilanterol [From Breo Ellipta] Adverse Reaction (Intermediate, Verified 11:58) full body tremors ciprofloxacin [From Cipro] Adverse Reaction (Verified 02/19/19 11:58) Leg pain Active Medications Acetaminophen (Tylenol 325 Mg) 650 mg PO Q4H PRN PRN PRN Reason: PAIN AND/OR FEVER Stop: 04/24/19 16:19 Hydrocodone Bitart/Acetaminophen ([place] 5/325 Mg) 1 tab PO Q8H PRN PRN PRN Reason: PAIN Stop: 03/30/19 17:25 Albuterol/Ipratropium (Duoneb 0.5-3 Mg/3 Ml Neb) 3 ml IH Q4HRT [facility] Stop: 04/24/19 18:59 Last Admin: 03/26/19 03:20 Dose: 3 ml Allopurinol (Zyloprim 100 Mg) 100 mg PO HS [facility] Stop: 04/24/19 21:59 Last Admin: 03/25/19 22:49 Dose: 100 mg Alprazolam (Xanax 0.25 Mg) 0.25 mg PO BID [facility] Stop: 04/24/19 21:59 Last Admin: 03/25/19 22:56 Dose: Not Given Aspirin (Ecotrin 81 Mg) 81 mg PO Q48H [facility] Stop: 04/25/19 21:59 Cyclobenzaprine HCl (Cyclobenzaprine 10 Mg) 5 mg PO TID PRN PRN PRN Reason: MUSCLE SPASMS Stop: 04/24/19 17:26 Enoxaparin Sodium (Enoxaparin Sodium) 40 mg SQ DAILY [facility] Stop: 04/24/19 17:59 Last Admin: 03/25/19 18:24 Dose: 40 mg Ceftriaxone Sodium/Dextrose (Rocephin 1 Gm-D5w 50 Ml Bag) 1 g in 50 mls @ 100 mls/hr IV Q24H10 [facility] Stop: 04/25/19 09:59 Sodium Chloride (Sodium Chloride 0.9% 1000 Ml) 1,000 mls @ 50 mls/hr IV .Q20H [facility] Stop: 04/24/19 16:19 Last Admin: 03/25/19 17:55 Dose: 50 mls/hr Levalbuterol HCl (Xopenex 1.25 Mg/0.5 Ml Ud Nebule) 1.25 mg IH Q2HPRN PRN PRN Reason: DIFFICULTY BLEEDING Stop: 04/24/19 16:19 Magnesium Oxide (Mag-Ox 400) 400 mg PO DAILY [facility] Stop: 04/25/19 09:59 Methylprednisolone Sodium Succinate (Solu-Medrol 125 Mg) 80 mg IV Q6HT [facility] Stop: 04/24/19 17:59 Last Admin: 03/26/19 06:45 Dose: 80 mg Multivitamins Therapeutic (Theragran Multivitamin) 1 tab PO DAILY [facility] Stop: 04/25/19 09:59 Pantoprazole Sodium (Protonix 40mg Tablet) 40 mg PO DAILY [facility] Stop: 04/25/19 09:59 Potassium Chloride (Klor Con 10 Meq) 10 meq PO DAILY [facility] Stop: 04/25/19 09:59 Fluticasone/Salmeterol (Advair Hfa 115/21 Common Canister*) 2 puff IH BIDRT [facility] Stop: 04/24/19 18:59 Last Admin: 03/25/19 17:04 Dose: 2 puff Tiotropium [place] (Spiriva 18 Mcg/Cap Inhaler) 1 ea IH HS [facility] Stop: 04/24/19 21:59 Last Admin: 03/25/19 23:10 Dose: 1 ea Torsemide (Demadex 20 Mg) 20 mg PO DAILY [facility] Stop: 04/25/19 09:59 Vitamin E (Vitamin E 400 Unit Softgel) 800 u PO DAILY [facility] Stop: 04/25/19 09:59 Intake & Output 03/25/19 03/26/19 11:59 11:59 Intake Total 0 Balance 0 Weight 90.718 kg 90.5 kg Orders 03/25/19 17:06 Pulse Oximetry .spot check 03/25/19 17:07 Peak Expiratory Flow Rate ONCE Respiratory Therapy Assessment DAILY 03/25/19 17:26 Hydrocodone/APAP 5/325 [[place] 5/325 mg] 1 tab PO Q8H PRN PRN 03/25/19 17:27 Cyclobenzaprine HCl 10 mg [Cyclobenzaprine 10 MG] 5 mg PO TID PRN PRN 03/25/19 17:59 Executive Office Manager/Discharge Plan 03/25/19 18:00 Enoxaparin Sodium [Enoxaparin Sodium] 40 mg SQ DAILY 03/25/19 19:00 Fluticasone/Salmeterol 115/21 [Advair Hfa 115/21 Common canister*] 2 puff IH BIDRT 03/25/19 21:00 BiPap/CPAP ROUTINE 03/25/19 22:00 Allopurinol 100 mg [Zyloprim 100 mg] 100 mg PO HS Alprazolam 0.25 mg [xanAX 0.25 MG] 0.25 mg PO BID Tiotropium [place] Inhaler [Spiriva 18 Mcg/Cap Inhaler] 1 ea IH HS 03/26/19 10:00 Magnesium Oxide 400 mg [Mag-Ox 400] 400 mg PO DAILY Multivitamins,Therapeutic Tab* [Theragran Multivitamin] 1 tab PO DAILY Vitamin E 400 Units [Vitamin E 400 UNIT SOFTGEL] 800 u PO DAILY 03/26/19 22:00 Aspirin EC 81 mg [Ecotrin 81 mg] 81 mg PO Q48H Lab Tests 03/25/19 03/25/19 03/25/19 12:30 12:30 14:42 WBC 21.7 H RBC 3.10 L Hgb 10.1 L Hct 33.0 L MCV 106.5 H MCH 32.5 H MCHC 30.6 L RDW 13.4 Plt Count 531 H MPV 8.6 Absolute Granulocytes 19.5 H Segmented Neutrophils 86 H Band Neutrophils 4 H Lymphocytes (Manual) 3 L Monocytes (Manual) 6 Metamyelocytes 1 Toxic Granulation 2+ Platelet Estimate INCREASED RBC Morphology ABNORMAL Polychromasia 1+ Macrocytosis 1+ Puncture Site pCO2 pO2 Base Excess O2 Saturation ABG pH ABG HCO3 ABG O2 Sat (Measured) Alexey Test A-a Gradient a/A Ratio Hemoglobin Carboxyhemoglobin Methemoglobin Temperature POC O2 Flow Rate Vent Mode Sodium 137 Potassium 4.6 Chloride 96 L Carbon Dioxide 33 H Anion Gap 13.2 BUN 12 Creatinine 0.66 Estimated GFR > 60.0 Glucose 145 H Calcium 9.6 Urine Color YELLOW Urine Appearance CLEAR Urine pH 9.0 Ur Specific [place] 1.013 Urine Protein NEGATIVE Urine Ketones NEGATIVE Urine Blood NEGATIVE Urine Nitrite NEGATIVE Urine Bilirubin NEGATIVE Urine Urobilinogen NEGATIVE Ur Leukocyte Esterase NEGATIVE Urine WBC (Auto) 0-2 Urine RBC (Auto) NONE U Epithel Cells (Auto) RARE Urine Bacteria (Auto) NONE Urine Culture Reflexed NO Urine Glucose 50 03/26/19 04:34 WBC RBC Hgb Hct MCV MCH MCHC RDW Plt Count MPV Absolute Granulocytes Segmented Neutrophils Band Neutrophils Lymphocytes (Manual) Monocytes (Manual) Metamyelocytes Toxic Granulation Platelet Estimate RBC Morphology Polychromasia Macrocytosis Puncture Site LEFT RADIAL pCO2 51 H pO2 64 L Base Excess 9.1 H O2 Saturation 91.4 L ABG pH 7.44 ABG HCO3 34.6 H* ABG O2 Sat (Measured) 93.6 L Alexey Test YES A-a Gradient 186 a/A Ratio 0.26 Hemoglobin 11.2 Carboxyhemoglobin 1.8 Methemoglobin 0.6 L Temperature 37.0 POC O2 Flow Rate 44 Vent Mode CPAP Sodium Potassium 4.0 Chloride Carbon Dioxide Anion Gap BUN Creatinine Estimated GFR Glucose Calcium Urine Color Urine Appearance Urine pH Ur Specific [place] Urine Protein Urine Ketones Urine Blood Urine Nitrite Urine Bilirubin Urine Urobilinogen Ur Leukocyte Esterase Urine WBC (Auto) Urine RBC (Auto) U Epithel Cells (Auto) Urine Bacteria (Auto) Urine Culture Reflexed Urine Glucose Code(s): J18.0 - BRONCHOPNEUMONIA, UNSPECIFIED ORGANISM (2) COPD exacerbation Current Visit: No Status: Resolved Onset Date: ~10/23/18 Code(s): J44.1 - CHRONIC OBSTRUCTIVE PULMONARY DISEASE W (ACUTE) EXACERBATION
[2019-03-26] MEDS: Advair Hfa 115/21 Common canister IH SCH ×2 (07:15→19:25)
[2019-03-26] MEDS ORDERED: DEMADEX 20 MG PO SCH (10:00)
[2019-03-26] MEDS ORDERED: NON-FORMULARY ITEM (Prenatal Vits W-Ca,Fe,Fa(<1mg) [Prenatal] 1 TAB) PO SCH (10:00)
[2019-03-26] MEDS ORDERED: VITAMIN E 1000 UNIT PO SCH (10:00)
[2019-03-26] MEDS: Protonix 40MG Tablet PO SCH (10:53)
[2019-03-26] MEDS: ENOXAPARIN SODIUM SQ SCH (10:53)
[2019-03-26] MEDS: Klor Con 10 MEQ PO SCH (10:54)
[2019-03-26] MEDS: MAG-OX 400 PO SCH (10:54)
[2019-03-26] MEDS: xanAX 0.25 MG PO SCH ×2 (10:54→22:10)
[2019-03-26] MEDS: THERAGRAN MULTIVITAMIN PO SCH (10:54)
[2019-03-26] MEDS: Vitamin E 400 UNIT SOFTGEL PO SCH (10:54)
[2019-03-26] MEDS: ROCEPHIN 1 Gm-D5w 50 ml Bag** 1 G/50 ML IVPB IV SCH (10:59)
[2019-03-26] MEDS: Lasix 40 MG/4 ML IV SCH (10:59)
[2019-03-26] MEDS: Sodium Chloride 0.9% 1000 ML 1,000 ML IV SCH (16:18)
[2019-03-26] MEDS ORDERED: ECOTRIN 81 MG PO SCH (22:00)
[2019-03-26] MEDS: ZYLOPRIM 100 MG PO SCH (22:10)
[2019-03-26] MEDS: Spiriva 18 Mcg/Cap Inhaler IH SCH (23:01)
[2019-03-27] MEDS: solu-MEDROL 125 MG IV SCH ×2 (00:14→06:42)
[2019-03-27] MEDS: DUONEB 0.5-3 MG/3 ml Neb IH SCH ×3 (03:32→10:43)
[2019-03-27] MEDS: Advair Hfa 115/21 Common canister IH SCH (07:25)
--- NOTE | 2019-03-27 08:00 | PCM.NOTE ---
Date and Time: 03/27/19 0759 Subjective Assessment: doing better - Review of Systems Constitutional: No Fever, No Chills Eyes: No Symptoms Ears, Nose, & Throat: No Symptoms Respiratory: Orthopnea, No Cough, No Short Of Breath Cardiac: Edema, No Chest Pain, No Syncope Abdominal/Gastrointestinal: No Abdominal Pain, No Nausea, No Vomiting, No Diarrhea Genitourinary Symptoms: No Dysuria Musculoskeletal: No Back Pain, No Neck Pain Skin: No Rash Neurological: No Dizziness, No Focal Weakness, No Sensory Changes Psychological: No Symptoms Endocrine: No Symptoms Hematologic/Lymphatic: No Symptoms Immunological/Allergic: No Symptoms Objective Exam General Appearance: no apparent distress, alert Neurologic Exam: alert, oriented x 3, cooperative, normal mood/affect, nml cerebellar function, sensation nml, No motor deficits Skin Exam: normal color, warm, dry Eye Exam: PERRL, EOMI, eyes nml inspection Ears, Nose, Throat Exam: normal ENT inspection, pharynx normal, moist mucous membranes Neck Exam: normal inspection, non-tender, supple, full range of motion Respiratory Exam: diminished breath sounds, rhonchi, wheezing, No respiratory distress Cardiovascular Exam: regular rate/rhythm, normal heart sounds Gastrointestinal/Abdomen Exam: soft, No tenderness, No mass Extremity Exam: normal inspection, normal range of motion Back Exam: normal inspection, normal range of motion, No CVA tenderness, No vertebral tenderness Pelvic Exam: deferred Rectal Exam: deferred OBJECTIVE DATA Vital Signs: Vital Signs - 24 hr Temp Pulse Resp BP Pulse Ox 03/27/19 07:50 97.9 F 72 20 119/61 94 L 03/27/19 07:28 81 16 98 03/27/19 04:00 97.7 F 77 18 118/59 94 L 03/27/19 03:34 71 18 94 L 03/27/19 00:00 97.9 F 79 20 108/54 96 03/26/19 23:32 96 03/26/19 20:00 98.1 F 73 20 101/54 94 L 03/26/19 19:26 71 22 94 L 03/26/19 16:00 97.8 F 86 22 128/58 94 L 03/26/19 15:18 72 18 96 03/26/19 12:00 97.9 F 88 20 129/60 94 L 03/26/19 11:12 76 20 90 L 03/26/19 08:00 97.8 F 73 24 113/62 94 L Oxygen-Last 24 hours O2 Percentage 4 Liters = 36% O2 Percentage 6 Liters = 44% O2 Percentage 4 Liters = 36% Oxygen Flowrate (L/min)-RT 4 Pain Assessment - Last Documented Pain Intensity 0 Pain Scale Used FLACC Intake and Output: Intake & Output 03/24/19 03/25/19 03/26/19 03/27/19 11:59 11:59 11:59 11:59 Intake Total 0 2072 Output Total 800 4950 Balance -800 -9316 Weight 90.718 kg 90.5 kg Radiology Exams: Radiology Procedures Category Date Time Status CHEST 1 VIEW (PORTABLE) Stat Exams 03/25/19 11:56 Completed Assessment/Plan (1) Acute bronchopneumonia Current Visit: Yes Status: Acute Onset Date: ~10/24/18 Assessment & Plan: Last Vital Signs Temp 97.9 F 03/27/19 07:50 Pulse 72 03/27/19 07:50 Resp 20 03/27/19 07:50 BP 119/61 03/27/19 07:50 Pulse Ox 94 L 03/27/19 07:50 Allergies modafinil [From Provigil] Allergy (Severe, Verified 02/19/19 11:58) suicidal tendencies codeine [Codeine] Allergy (Verified 02/19/19 11:58) levofloxacin [From Levaquin] Allergy (Verified 02/19/19 11:58) paroxetine [From Paxil] Allergy (Verified 02/19/19 11:58) tramadol Allergy (Verified 02/19/19 11:58) armodafinil [From Nuvigil] Adverse Reaction (Severe, Verified 02/19/19 11:58) suicidal tendencies fluticasone furoate [From Breo Ellipta] Adverse Reaction (Intermediate, Verified 02/19/19 11:58) full body tremors sertraline [From Zoloft] Adverse Reaction (Intermediate, Verified 02/19/19 11:58 ) full body tremors vilanterol [From Breo Ellipta] Adverse Reaction (Intermediate, Verified 11:58) full body tremors ciprofloxacin [From Cipro] Adverse Reaction (Verified 02/19/19 11:58) Leg pain Active Medications Acetaminophen (Tylenol 325 Mg) 650 mg PO Q4H PRN PRN PRN Reason: PAIN AND/OR FEVER Stop: 04/24/19 16:19 Hydrocodone Bitart/Acetaminophen ([place] 5/325 Mg) 1 tab PO Q8H PRN PRN PRN Reason: PAIN Stop: 03/30/19 17:25 Albuterol/Ipratropium (Duoneb 0.5-3 Mg/3 Ml Neb) 3 ml IH Q4HRT [facility] Stop: 04/24/19 18:59 Last Admin: 03/27/19 07:24 Dose: 3 ml Allopurinol (Zyloprim 100 Mg) 100 mg PO HS [facility] Stop: 04/24/19 21:59 Last Admin: 03/26/19 22:10 Dose: 100 mg Alprazolam (Xanax 0.25 Mg) 0.25 mg PO BID [facility] Stop: 04/24/19 21:59 Last Admin: 03/26/19 22:10 Dose: 0.25 mg Aspirin (Ecotrin 81 Mg) 81 mg PO Q48H [facility] Stop: 04/25/19 21:59 Last Admin: 03/26/19 22:10 Dose: 81 mg Cyclobenzaprine HCl (Cyclobenzaprine 10 Mg) 5 mg PO TID PRN PRN PRN Reason: MUSCLE SPASMS Stop: 04/24/19 17:26 Enoxaparin Sodium (Enoxaparin Sodium) 40 mg SQ DAILY [facility] Stop: 04/24/19 17:59 Last Admin: 03/26/19 10:53 Dose: 40 mg Furosemide (Lasix 40 Mg/4 Ml) 40 mg IV DAILY [facility] Stop: 04/25/19 09:59 Last Admin: 03/26/19 10:59 Dose: 40 mg Ceftriaxone Sodium/Dextrose (Rocephin 1 Gm-D5w 50 Ml Bag) 1 g in 50 mls @ 100 mls/hr IV Q24H10 [facility] Stop: 04/25/19 09:59 Last Admin: 03/26/19 10:59 Dose: 100 mls/hr Sodium Chloride (Sodium Chloride 0.9% 1000 Ml) 1,000 mls @ 50 mls/hr IV .Q20H [facility] Stop: 04/24/19 16:19 Last Admin: 03/26/19 16:18 Dose: 50 mls/hr Levalbuterol HCl (Xopenex 1.25 Mg/0.5 Ml Ud Nebule) 1.25 mg IH Q2HPRN PRN PRN Reason: DIFFICULTY BLEEDING Stop: 04/24/19 16:19 Magnesium Oxide (Mag-Ox 400) 400 mg PO DAILY [facility] Stop: 04/25/19 09:59 Last Admin: 03/26/19 10:54 Dose: 400 mg Methylprednisolone Sodium Succinate (Solu-Medrol 125 Mg) 80 mg IV Q6HT [facility] Stop: 04/24/19 17:59 Last Admin: 03/27/19 06:42 Dose: 80 mg Multivitamins Therapeutic (Theragran Multivitamin) 1 tab PO DAILY [facility] Stop: 04/25/19 09:59 Last Admin: 03/26/19 10:54 Dose: 1 tab Pantoprazole Sodium (Protonix 40mg Tablet) 40 mg PO DAILY [facility] Stop: 04/25/19 09:59 Last Admin: 03/26/19 10:53 Dose: 40 mg Potassium Chloride (Klor Con 10 Meq) 10 meq PO DAILY [facility] Stop: 04/25/19 09:59 Last Admin: 03/26/19 10:54 Dose: 10 meq Fluticasone/Salmeterol (Advair Hfa 115/21 Common Canister*) 2 puff IH BIDRT [facility] Stop: 04/24/19 18:59 Last Admin: 03/27/19 07:25 Dose: 2 puff Tiotropium [place] (Spiriva 18 Mcg/Cap Inhaler) 1 ea IH HS [facility] Stop: 04/24/19 21:59 Last Admin: 03/26/19 23:01 Dose: 1 ea Vitamin E (Vitamin E 400 Unit Softgel) 800 u PO DAILY [facility] Stop: 04/25/19 09:59 Last Admin: 03/26/19 10:54 Dose: 800 u Intake & Output 03/26/19 03/27/19 11:59 11:59 Intake Total 0 2072 Output Total 800 4950 Balance -800 -2878 Weight 90.5 kg Orders 03/26/19 09:53 SCD's [Sequential Compression Device] Q6H 03/26/19 10:00 Furosemide 40 mg/4 ml [Lasix 40 MG/4 ML] 40 mg IV DAILY Magnesium Oxide 400 mg [Mag-Ox 400] 400 mg PO DAILY Multivitamins,Therapeutic Tab* [Theragran Multivitamin] 1 tab PO DAILY Vitamin E 400 Units [Vitamin E 400 UNIT SOFTGEL] 800 u PO DAILY 03/26/19 22:00 Aspirin EC 81 mg [Ecotrin 81 mg] 81 mg PO Q48H Microbiology 03/25/19 12:30 Blood Blood Culture Gram Stain - Final Code(s): J18.0 - BRONCHOPNEUMONIA, UNSPECIFIED ORGANISM (2) COPD exacerbation Current Visit: No Status: Resolved Onset Date: ~10/23/18 Assessment & Plan: Laboratory Results 03/26/19 03/25/19 03/25/19 Range/Units 04:34 14:42 12:30 WBC (4.0-10.5) K/mm3 RBC (4.1-5.4) M/mm3 Hgb (12.0-16.0) gm/dl Hct (35-47) % MCV (78-100) fl MCH (26-32) pg MCHC (32-36) g/dl RDW (11.5-14.0) % Plt Count (150-450) K/mm3 MPV (6-9.5) fl Absolute Granulocytes (1.4-6.9) Segmented Neutrophils (36.0-66.0) % Band Neutrophils (0.0-2.0) % Lymphocytes (Manual) (24-44) % Monocytes (Manual) (0.0-12.0) % Metamyelocytes % Toxic Granulation Platelet Estimate (NORMAL) RBC Morphology Polychromasia Macrocytosis Puncture Site LEFT RADIAL pCO2 51 H (35-45) mmHg pO2 64 L (75-100) mmHg Base Excess 9.1 H (-2.0-2.0) O2 Saturation 91.4 L (94-100) g/dF ABG pH 7.44 (7.35-7.45) ABG HCO3 34.6 H* (22-28) ABG O2 Sat (Measured) 93.6 L (95-100) % Alexey Test YES A-a Gradient 186 a/A Ratio 0.26 Hemoglobin 11.2 Carboxyhemoglobin 1.8 (0.0-6.9) % THgb Methemoglobin 0.6 L (1.4-1.5) % Temperature 37.0 C POC O2 Flow Rate 44 % Vent Mode CPAP Sodium 137 (137-145) mmol/L Potassium 4.0 4.6 (3.5-5.1) mmol/L Chloride 96 L (98-107) mmol/L Carbon Dioxide 33 H (22-30) mmol/L Anion Gap 13.2 (5-15) MEQ/L BUN 12 (7-17) mg/dL Creatinine 0.66 (0.52-1.04) mg/dL Estimated GFR > 60.0 ML/MIN Glucose 145 H (74-106) mg/dL Calcium 9.6 (8.4-10.2) mg/dL Urine Color YELLOW (YELLOW) Urine Appearance CLEAR (CLEAR) Urine pH 9.0 (5-6) Ur Specific [place] 1.013 (1.005-1.025) Urine Protein NEGATIVE (Negative) Urine Ketones NEGATIVE (NEGATIVE) Urine Blood NEGATIVE (0-5) Bert/ul Urine Nitrite NEGATIVE (NEGATIVE) Urine Bilirubin NEGATIVE (NEGATIVE) Urine Urobilinogen NEGATIVE (0-1) mg/dL Ur Leukocyte Esterase NEGATIVE (NEGATIVE) Urine WBC (Auto) 0-2 (0-5) /HPF Urine RBC (Auto) NONE (0-2) /HPF U Epithel Cells (Auto) RARE (FEW) /HPF Urine Bacteria (Auto) NONE (NEGATIVE) /HPF Urine Culture Reflexed NO (NO) Urine Glucose 50 (NEGATIVE) mg/dL 03/25/19 Range/Units 12:30 WBC 21.7 H (4.0-10.5) K/mm3 RBC 3.10 L (4.1-5.4) M/mm3 Hgb 10.1 L (12.0-16.0) gm/dl Hct 33.0 L (35-47) % MCV 106.5 H (78-100) fl MCH 32.5 H (26-32) pg MCHC 30.6 L (32-36) g/dl RDW 13.4 (11.5-14.0) % Plt Count 531 H (150-450) K/mm3 MPV 8.6 (6-9.5) fl Absolute Granulocytes 19.5 H (1.4-6.9) Segmented Neutrophils 86 H (36.0-66.0) % Band Neutrophils 4 H (0.0-2.0) % Lymphocytes (Manual) 3 L (24-44) % Monocytes (Manual) 6 (0.0-12.0) % Metamyelocytes 1 % Toxic Granulation 2+ Platelet Estimate INCREASED (NORMAL) RBC Morphology ABNORMAL Polychromasia 1+ Macrocytosis 1+ Puncture Site pCO2 (35-45) mmHg pO2 (75-100) mmHg Base Excess (-2.0-2.0) O2 Saturation (94-100) g/dF ABG pH (7.35-7.45) ABG HCO3 (22-28) ABG O2 Sat (Measured) (95-100) % Alexey Test A-a Gradient a/A Ratio Hemoglobin Carboxyhemoglobin (0.0-6.9) % THgb Methemoglobin (1.4-1.5) % Temperature C POC O2 Flow Rate % Vent Mode Sodium (137-145) mmol/L Potassium (3.5-5.1) mmol/L Chloride (98-107) mmol/L Carbon Dioxide (22-30) mmol/L Anion Gap (5-15) MEQ/L BUN (7-17) mg/dL Creatinine (0.52-1.04) mg/dL Estimated GFR ML/MIN Glucose (74-106) mg/dL Calcium (8.4-10.2) mg/dL Urine Color (YELLOW) Urine Appearance (CLEAR) Urine pH (5-6) Ur Specific [place] (1.005-1.025) Urine Protein (Negative) Urine Ketones (NEGATIVE) Urine Blood (0-5) Bert/ul Urine Nitrite (NEGATIVE) Urine Bilirubin (NEGATIVE) Urine Urobilinogen (0-1) mg/dL Ur Leukocyte Esterase (NEGATIVE) Urine WBC (Auto) (0-5) /HPF Urine RBC (Auto) (0-2) /HPF U Epithel Cells (Auto) (FEW) /HPF Urine Bacteria (Auto) (NEGATIVE) /HPF Urine Culture Reflexed (NO) Urine Glucose (NEGATIVE) mg/dL Code(s): J44.1 - CHRONIC OBSTRUCTIVE PULMONARY DISEASE W (ACUTE) EXACERBATION
[2019-03-27] MEDS: xanAX 0.25 MG PO SCH (09:57)
[2019-03-27] MEDS: Protonix 40MG Tablet PO SCH (09:57)
[2019-03-27] MEDS: ROCEPHIN 1 Gm-D5w 50 ml Bag** 1 G/50 ML IVPB IV SCH (09:57)
[2019-03-27] MEDS: Klor Con 10 MEQ PO SCH (09:58)
[2019-03-27] MEDS: THERAGRAN MULTIVITAMIN PO SCH (09:58)
[2019-03-27] MEDS: ENOXAPARIN SODIUM SQ SCH (09:58)
[2019-03-27] MEDS: MAG-OX 400 PO SCH (09:58)
[2019-03-27] MEDS: Lasix 40 MG/4 ML IV SCH (09:58)
[2019-03-27] MEDS: Vitamin E 400 UNIT SOFTGEL PO SCH (10:00)
[2019-03-27 12:01] VITALS: BP 119/56; PULSE 73; O2SAT 94
== END 2019-03-27 11:17 | disposition home or self-care (01) ==
LOC: ED 11:03 → MED SURG 16:12
PROVIDERS: ADMIT General Practice; ATTEND General Practice
DX: J18.0 Bronchopneumonia, unspecified organism (principal); J44.1 Chronic obstructive pulmonary disease with (acute) exacerbation; Z79.899 Other long term (current) drug therapy; F17.200 Nicotine dependence, unspecified, uncomplicated
CPT/HCPCS: 36000; 36415; 36600; 71045; 80048; 81001; 82375; 82803; 85025; 87040; 94150; 94640; 94660; 94760; 96365; 96367; 99285; G0378; J0456; J0696; J1650; J1940; J2930; A9270-GY